=== PATIENT | male | born 1980 | race Caucasian/White ===

== ENCOUNTER 2020-01-11 21:39 | Inpatient (IN) ==
[2020-01-11] MEDS ORDERED: LORazepam 1 MG/2 ML VIAL IV STA ×2 (21:57→23:43)
[2020-01-11] MEDS ORDERED: THIAMINE HCL 200 MG in SODIUM CHLORIDE 0.9% 50 ML IV STA (21:59)
[2020-01-11] MEDS ORDERED: SODIUM CHLORIDE 0.9% 1000ML 1,000 ML IV SCH (22:00)
--- NOTE | 2020-01-11 22:03 | Emergency Department Note ---
Impression & Plan Alcohol withdrawal, Alcohol abuse, Pancytopenia, Hyperbilirubinemia, Thrombocytopenia ED Provider Note NAME: MIKI MERCADO AGE: 39 SEX: M : 1980 ARRIVES VIA: Walk-In INFORMANT: Patient, ED PROVIDER(S): Haim Dietz DO CHIEF COMPLAINT: Swelling HPI: The patient is a 39-year-old male who presented to the emergency department for an evaluation of lower extremity swelling. The patient also has multiple other complaints such as difficulty breathing chest pain shaking anxiety and "I just do not feel right". The patient is a history of chronic alcoholism. He also has a history of drug abuse in the past. He has a history of hepatitis C. He denies having any fevers. He states he stopped drinking approximately 24 daxa rs ago. He states that he has had some withdrawal symptoms in the past but today's episode appears worse. He denies having any vomiting. He also complains of lower extremity swelling. He states the swelling has improved somewhat over the last few days. He also complains of testicular swelling and testicular pain. He noticed a testicular mass over the scrotum. He denies having any abdominal pain. He has had no diarrhea. He has no cough or recent traveling. ROS: See above HPI for pertinent positives & negatives. A total of 10 systems reviewed and were otherwise negative. PAST MEDICAL HISTORY: See Below PAST SURGICAL HISTORY: See Below FAMILY HISTORY: See Below SOCIAL HISTORY: See Below HOME MEDICATIONS: See Below ALLERGIES: See Below VITALS: See Below PHYSICAL EXAMINATION: GENERAL: The patient is awake and alert. He is very anxious appearing. EYES: The conjunctivae are clear. The pupils are round and reactive. Scleral icterus was noted EARS, NOSE, MOUTH AND THROAT: The nose is without any evidence of any deformity. Mucous membranes are dry. NECK: The neck is nontender and supple. RESPIRATORY: Normal respiratory effort is noted there is no evidence of wheezing rhonchi or rales CARDIOVASCULAR: Tachycardic rate with regular rhythm was noted. There is no definite murmur. GASTROINTESTINAL: The abdomen is soft. Abdomen is nontender. MUSCULOSKELETAL/EXTREMITIES: There is no evidence of gross deformity full range of motion is noted in the hips and shoulders. SKIN: There is no obvious evidence of any rash. There is bilateral lower extremity swelling noted. Right greater than left. Venous stasis changes are noted. NEUROLOGIC: Patient is awake alert and oriented x3 strength is symmetric patellar reflexes are 3+ bilaterally MEDICAL DECISION MAKING: The patient is a 39-year-old male who presented to the emergency department for an evaluation of lower extremity swelling. The patient appears to have acute on chronic liver problems. He has a history of hepatitis. He has elevated liver function studies as well as pancytopenia at baseline but his symptoms appear to be worsened and his laboratory findings appear to be worsened. He was found to have an elevated alcohol level in the emergency department however at this time he is not clinically intoxicated. In fact I feel it is more the opposite as the patient is hyperreflexic and has elevated blood pressure. I feel this is more consistent with withdrawal. He was treated with Ativan IV fluids and thiamine in the emergency department. He was reevaluated multiple times. He was feeling much better on subsequent reevaluation. Given the patient's laboratory and radiographic studies I did discuss his case with the on-call [facility] hospitalist. They have agreed to evaluate the patient in the emergency department for further management and disposition. Triage Nursing notes reviewed. Prior medical records reviewed Vital Signs: reviewed and remarkable for tachycardia and hypertension. Differential diagnosis: Infection, dehydration, metabolic abnormality, hypo/hyperglycemia, electrolyte disturbance, anemia, hypoxia, cardiac sources, intracerebral event, toxicologic, neurologic, as well as other pathologies. ER treatment provided: See below Diagnostics interpreted by me: ECG: EKG was obtained in the emergency department. My interpretation is sinus tachycardia 105 bpm. There was no ectopy. Diffuse ST depressions were noted. This was compared to a tracing from June [id number]. No significant changes were noted. Cardiac Monitoring: An order was placed for continuous cardiac monitoring. The monitor shows a rate of 95 with sinus rhythm. Laboratory studies: As stated above and show below. Imaging studies: See below Consultation(s): 0015: I discussed this case with Dr. Reece. He is agreed to evaluate patient in the emergency department for further management and disposition. ED COURSE: Procedures: none PDMP:reviewed and no issues Critical Care: I have personally spent greater than 45 minutes of critical care time in the direct management of this patient. This includes bedside care, interpretation of diagnostic studies, and testing, discussion with consultants, patient, and family members, and other required patient management activities. This 45 minutes is in excess of all separately billable procedures. Past Med/Surg History Medical History Heart valve regurgitation Leg swelling Surgical History No pertinent past surgical history Social History Smoking Status: Current every day smoker Hx Substance Use: No Preferred Language: Portuguese Feels Safe at Home: Yes Allergies Allergies Allergy/AdvReac Type Severity Reaction Status Date / Time [id number] Allergy Unknown Uncoded 07/23/02 16:38 Home Meds Home Medications Medication Instructions Recorded Confirmed buprenorphine HCl 12 mg SUBLINGUAL DAILY 06/06/19 01/11/20 Results & Data (ED) Vital Signs Vital Signs - 24 hr 01/11/20 21:45 01/11/20 22:18 01/12/20 00:10 Temperature 37.2 C Temperature Source Oral Pulse Rate 119 H 76 Pulse Rate from SpO2 Sensor 76 Respiratory Rate 18 18 Respiratory Effort / Characteristics Non-Labored Respiratory Depth Normal Blood Pressure 146/79 H Blood Pressure [Right Arm] Blood Pressure Mean 101 Blood Pressure Mean [Right Arm] Pulse Oximetry 97 98 97 Oxygen Delivery Method Room Air Room Air Sepsis Recent Fever Within 48 Hours No Sepsis New/Unexplained Change in Mental Status No Sepsis Action Taken by Nursing No Action Required 01/12/20 00:18 Temperature Temperature Source Pulse Rate Pulse Rate from SpO2 Sensor Respiratory Rate Respiratory Effort / Characteristics Respiratory Depth Blood Pressure Blood Pressure [Right Arm] 125/73 Blood Pressure Mean Blood Pressure Mean [Right Arm] 90 Pulse Oximetry Oxygen Delivery Method Sepsis Recent Fever Within 48 Hours Sepsis New/Unexplained Change in Mental Status Sepsis Action Taken by Halfway Medications Current Medication List: was personally reviewed by me Laboratory Data Attestation: I reviewed the patient's lab results. Result diagrams: 01/11/20 22:07 01/11/20 22:07 Lab Results 01/11/20 01/11/20 01/11/20 Range/Units 22:07 22:07 22:07 WBC 4.29 L (4.8-10.8) K/uL RBC 4.02 L (4.7-6.1) M/uL Hgb 13.5 L (14.0-18.0) g/dL Hct 38.2 L (42-52) % MCV 95.0 (80-100) fL MCH 33.6 (25-34) pg MCHC 35.3 (32-36) g/dL RDW Std Deviation 56.0 H (36.4-46.3) fL RDW Coeff of Munir 15.9 H (11.5-14.5) % Plt Count 81 L (130-400) K/uL MPV 9.2 (7.4-10.4) fL Immature Gran % (Auto) 0.5 % Neut % (Auto) 62.7 % Lymph % (Auto) 26.6 % Avery % (Auto) 9.8 % Eos % (Auto) 0.2 % Baso % (Auto) 0.2 % Neut # (Auto) 2.69 (1.4-6.5) K/uL Lymph # (Auto) 1.14 L (1.2-3.4) K/uL Avery # (Auto) 0.42 (0.11-0.59) K/uL Eos # (Auto) 0.01 (0-0.5) K/uL Baso # (Auto) 0.01 (0-0.2) K/uL Immature Gran # (Auto) 0.02 (0.00-0.02) K/uL Hypersegmented Neuts 1+ Platelet Estimate Decreased L (Normal) Target Cells 1+ PT 15.6 H (9.0-12.0) Seconds INR 1.5 H (0.9-1.1) APTT 35.7 H (21.0-31.0) Seconds PTT Ratio 1.3 D-Dimer 670 H* (0-500) ug/L FEU Sodium 141 (136-145) mmol/L Potassium 3.6 (3.5-5.1) mmol/L Chloride 106 (98-107) mmol/L Carbon Dioxide 29 (21-32) mmol/L Anion Gap 6.0 (3-11) BUN 4 L (7-18) mg/dl Creatinine 0.81 (0.6-1.4) mg/dl Est Cr Clr Drug Dosing 149.3 ml/min Est GFR ( Amer) 129.8 Est GFR (Non-Af Amer) 112.0 BUN/Creatinine Ratio 4.9 L (10-20) Glucose 122 H (70-99) mg/dl Calcium 8.7 (8.5-10.1) mg/dl Magnesium 1.9 (1.8-2.4) mg/dl Total Bilirubin 6.6 H (0.2-1) mg/dl Direct Bilirubin 2.7 H (0-0.2) mg/dl AST 245 H (15-37) U/L ALT 92 H (12-78) U/L Alkaline Phosphatase 68 (45-117) U/L Total Creatine Kinase 1596 H (39-308) U/L Troponin I < 0.015 (0-0.045) ng/ml Total Protein 8.6 H (6.4-8.2) gm/dl Albumin 3.8 (3.4-5.0) gm/dl Globulin 4.8 H (2.5-4.0) gm/dl Albumin/Globulin Ratio 0.8 L (0.9-2) Lipase 144 (73-393) U/L Salicylates (2.8-20) mg/dl Acetaminophen (10-30) ug/ml Ethyl Alcohol mg/dL (0-3) mg/dl 01/11/20 01/11/20 Range/Units 22:07 22:07 WBC (4.8-10.8) K/uL RBC (4.7-6.1) M/uL Hgb (14.0-18.0) g/dL Hct (42-52) % MCV (80-100) fL MCH (25-34) pg MCHC (32-36) g/dL RDW Std Deviation (36.4-46.3) fL RDW Coeff of Munir (11.5-14.5) % Plt Count (130-400) K/uL MPV (7.4-10.4) fL Immature Gran % (Auto) % Neut % (Auto) % Lymph % (Auto) % Avery % (Auto) % Eos % (Auto) % Baso % (Auto) % Neut # (Auto) (1.4-6.5) K/uL Lymph # (Auto) (1.2-3.4) K/uL Avery # (Auto) (0.11-0.59) K/uL Eos # (Auto) (0-0.5) K/uL Baso # (Auto) (0-0.2) K/uL Immature Gran # (Auto) (0.00-0.02) K/uL Hypersegmented Neuts Platelet Estimate (Normal) Target Cells PT (9.0-12.0) Seconds INR (0.9-1.1) APTT (21.0-31.0) Seconds PTT Ratio D-Dimer (0-500) ug/L FEU Sodium (136-145) mmol/L Potassium (3.5-5.1) mmol/L Chloride (98-107) mmol/L Carbon Dioxide (21-32) mmol/L Anion Gap (3-11) BUN (7-18) mg/dl Creatinine (0.6-1.4) mg/dl Est Cr Clr Drug Dosing ml/min Est GFR ( Amer) Est GFR (Non-Af Amer) BUN/Creatinine Ratio (10-20) Glucose (70-99) mg/dl Calcium (8.5-10.1) mg/dl Magnesium (1.8-2.4) mg/dl Total Bilirubin (0.2-1) mg/dl Direct Bilirubin (0-0.2) mg/dl AST (15-37) U/L ALT (12-78) U/L Alkaline Phosphatase (45-117) U/L Total Creatine Kinase (39-308) U/L Troponin I (0-0.045) ng/ml Total Protein (6.4-8.2) gm/dl Albumin (3.4-5.0) gm/dl Globulin (2.5-4.0) gm/dl Albumin/Globulin Ratio (0.9-2) Lipase (73-393) U/L Salicylates (2.8-20) mg/dl Acetaminophen (10-30) ug/ml Ethyl Alcohol mg/dL 171.2 H (0-3) mg/dl Administered Medications Discontinued Medications Sodium Chloride (Nss 1000ml) 1,000 mls @ 999 mls/hr IV .[id number] [id number] Stop: 01/11/20 23:00 Last Infusion: 01/12/20 00:03 Dose: 0 mls/hr Documented by: [id number] Admin: 01/11/20 22:30 Dose: 999 mls/hr Documented by: [id number] Lorazepam (Ativan) 1 mg in 2 mls @ 2 mls/min IV NOW STA Stop: 01/11/20 21:58 Last Admin: 01/11/20 22:30 Dose: 2 mls/min Documented by: [id number] Thiamine HCl 200 mg/ Sodium (Chloride) 52 mls @ 208 mls/hr IV NOW STA Stop: 01/11/20 22:13 Last Infusion: 01/12/20 00:03 Dose: 0 mls/hr Documented by: [id number] Admin: 01/11/20 22:30 Dose: 208 mls/hr Documented by: [id number] Lorazepam (Ativan) 1 mg in 2 mls @ 2 mls/min IV NOW STA Stop: 01/11/20 23:44 Last Admin: 01/12/20 00:00 Dose: 2 mls/min Documented by: [id number] Imaging Data Attestation: I personally reviewed and interpreted this imaging study as follows: My Impression: 1 view chest x-ray was obtained in the emergency department. My interpretation is heart size is normal. Poor inspiratory effort was noted. There was no definite infiltrate. There was no free air. Radiologist's Impression: Preliminary Findings Only See Final Report For Complete Findings CT HEAD: No acute intracranial hemorrhage, hydrocephalus, edema, mass effect, or acute cortical infarct. Paranasal sinuses and mastoid air cells are clear. No fracture. Radiologist: Sharad Mcnamara MD Study ready at 22:43 and initial results transmitted at 23:01 Preliminary Findings Only See Final Report For Complete Findings US SCROTAL: No torsion or mass. Bilateral varicoceles present. US VENOUS BILATERAL LOWER EXTREMITIES: No evidence of deep venous thrombosis. Radiologist: Sharad Mcnamara MD Study ready at 23:51 and initial results transmitted at 00:05 Prescription Drug Monitoring [place] Drug Monitoring Program reviewed and findings noted below Prescription Drug Findings: The patient takes Buprenorphine chronically. Blood Pressure Blood Pressure Findings: Elevated blood pressure Blood Pressure Disposition: further management by hospitalist Discharge Plan Visit Data Chief Complaint: Illness Stated Complaint: LEG PAIN,SWOLLEN,RAPID HEARTBEAT ED Provider: Haim Dietz Discharge Problem: Alcohol withdrawal, Alcohol abuse, Pancytopenia, Hyperbilirubinemia, Thrombocytopenia Patient Disposition: Being Evaluated by Hospitalist Condition: Good Forms Stand Alone Forms: My [facility] PeerIndex Prescriptions Prescriptions: No Action buprenorphine HCl 8 mg Tablet, Sublingual 12 mg SUBLINGUAL DAILY RF: 0 Referrals Referrals: PCP,NO [Primary Care Provider] - Discharge Problem: Alcohol withdrawal Qualifiers: Complication of substance-induced condition: uncomplicated Qualified Code(s): F10.230 - Alcohol dependence with withdrawal, uncomplicated
[2020-01-11 22:36] LABS: INR 1.5 (0.9-1.1); Partial Thromboplastin Ratio 1.3; Partial Thromboplastin Time 35.7 Seconds (21.0-31.0); Prothrombin Time 15.6 Seconds (9.0-12.0)
[2020-01-11 22:40] LABS: D Dimer 670 ug/L FEU (0-500)
[2020-01-11 22:41] LABS: Alanine Aminotransferase 92 U/L (12-78); Albumin Level 3.8 gm/dl (3.4-5.0); Aspartate Aminotransferase 245 U/L (15-37); BUN Creatinine Ratio 4.9 (10-20); Blood Urea Nitrogen 4 mg/dl (7-18); Calcium 8.7 mg/dl (8.5-10.1); Carbon Dioxide 29 mmol/L (21-32); Chloride 106 mmol/L (98-107); Creatinine Clr Calc Pharmacy 149.3 ml/min; Est GFR (African American) 129.8; Glucose 122 mg/dl (70-99); Lipase 144 U/L (73-393); Magnesium 1.9 mg/dl (1.8-2.4); Potassium 3.6 mmol/L (3.5-5.1); Sodium 141 mmol/L (136-145)
[2020-01-11 22:56] LABS: Albumin Globulin Ratio 0.8 (0.9-2); Alkaline Phosphatase 68 U/L (45-117); Bilirubin,Total 6.6 mg/dl (0.2-1); Creatine Kinase 1596 U/L (39-308); Globulin 4.8 gm/dl (2.5-4.0); Total Protein 8.6 gm/dl (6.4-8.2); Troponin I < 0.015 ng/ml (0-0.045)
[2020-01-11 23:04] LABS: Hematocrit (blood only) 38.2 % (42-52); Hemoglobin 13.5 g/dL (14.0-18.0); Mean Corpuscular Hemoglobin 33.6 pg (25-34); Mean Corpuscular Hgb Conc 35.3 g/dL (32-36); RDW Coefficient of Variation 15.9 % (11.5-14.5); Red Blood Count 4.02 M/uL (4.7-6.1); White Blood Count 4.29 K/uL (4.8-10.8)
[2020-01-11 23:17] LABS: Basophils # (auto) 0.01 K/uL (0-0.2); Basophils % (auto) 0.2 %; Eosinophils # (auto) 0.01 K/uL (0-0.5); Eosinophils % (auto) 0.2 %; Immature Granulocytes # (auto) 0.02 K/uL (0.00-0.02); Immature Granulocytes % (auto) 0.5 %; Lymphocytes # (auto) 1.14 K/uL (1.2-3.4); Lymphocytes % (auto) 26.6 %; Mean Platelet Volume 9.2 fL (7.4-10.4); Monocytes # (auto) 0.42 K/uL (0.11-0.59); Monocytes % (auto) 9.8 %; Neutrophils # (auto) 2.69 K/uL (1.4-6.5); Neutrophils % (auto) 62.7 %; Platelet Count 81 K/uL (130-400); Platelet Estimate Decreased (Normal); Target Cells 1+
[2020-01-11 23:55] LABS: Bilirubin Direct 2.7 mg/dl (0-0.2)
--- NOTE | 2020-01-12 01:08 | History & Physical Report ---
Date of Service January 12, 2020 Assessment & Plan (1) Alcohol abuse: 39-year-old male with past medical history alcohol abuse, pancytopenia presents with concerns of lower extremity swelling and testicular pain admitted for alcohol withdrawal management. Alcohol withdrawal/abuse -Admit to Med Tele Per patient drinks about 1/5 of vodka per day usually. Attempted to quit over December 11, now drinks about 1-2 shots per day of vodka. EtOH 171.[address] on AWSS protocol. Patient given IV lorazepam 1 mg x 2 in ED -EKG: Sinus tachycardia with prolonged QTc 491. Repeat daily IV thiamine 100 mg twice daily and IV folate 1 mg daily. Can transition to PO moving forward. Multivitamin daily when able We will make patient n.p.o. IVF with D5 with 1/2 NSS@100 mls/hr -B12, Folate, Mg, Phos, AFP in the AM MELD score18 points. 6% estimated 3-month mortality. Given high score consider referral to doctor osteopathic. Will consult GI while inpatient so that the process of making arrangements for follow-up both locally and possibly a tertiary care center can be started Hepatitis panel ordered. Unclear status Appreciate case management assistance for outpatient management Continue with ongoing EtOH cessation counseling. Patient notes that he is interested in quitting ?Hepatic cirrhosis/portal hypertension/esophageal varices Patient notes hematemesis over December 11, none currently. Possibly due to esophageal varices rupturing. IV Protonix ordered GI consult as above. Consideration for further evaluation with EGD We will obtain CT abdomen pelvis at this time to further evaluate liver pathology Pancytopenia Likely secondary to alcohol abuse WBC 4.29, hemoglobin 13.5, platelet 81 on admission Daily CBC. We will additionally get a peripheral smear CT abdomen pelvis as above. This can assess possible splenomegaly secondary to sequestration of platelets Elevated liver enzymes/INR Secondary to alcohol abuse. AST ALT ratio indicative of alcoholic patient We will give IV vitamin K 10 mg and see how INR trends to assess liver response Trend CMP, PT/INR daily Elevated T bili T bili 6.6, direct bili 2.7 on admission Nontender abdominal exam, afebrile admission CT abdomen pelvis as above for further evaluation Lower extremity/scrotal swelling Scrotal ultrasound ([facility]): No torsion or mass. Bilateral varicoceles present Venous Doppler LE ([facility]): No evidence of deep venous thrombosis. Continue to monitor. No acute intervention at present FEN/GI: D5 with 1/2 NSS@100. N.p.o. DVT prophylaxis: Heparin SQ Full code Dispo: Med telemetry. Appreciate CM assistance moving forward for discharge planning History of Present Illness Chief Complaint: Leg swelling, testicular pain, alcohol Primary Care Provider: NO PCP 39-year-old male with past medical history alcohol abuse, pancytopenia presents with concerns of lower extremity swelling and testicular pain. HPI somewhat limited given limited patient participation secondary to drowsiness. Leg swelling has been there since May. Patient is noted that over the past few days has gotten worse with dull intermittent pain associated. Patient initially notes complaint of testicular lump that he noticed a few days ago as well. Associated concentrated urine and two recent new sexual partners. Patient was denies any urinary symptoms of dysuria, frequency, urgency, urethral discharge. Just knows what he thinks may be a lump on his testicle. As far as the alcohol, patient notes last drink about 24 hours ago. Overall states that he "just does not feel right". Patient drinks about 1/5 of vodka per day usually. Attempted to quit over December 11, now drinks about 1-2 shots per day of vodka. Patient states that reason he quit over December 11 is because he noticed that he was throwing up "some clots." However, no hematemesis since that time. Patient otherwise denies any fevers, nausea, vomiting, diarrhea, chills, cough, chest pain, shortness of breath, palpitations, abdominal pain, known sick contacts or recent travel anywhere. Patient with no other acute concerns or complaints. Pertinent labs: WBC 4.29, hemoglobin 13.5, platelet 81, d-dimer 670,, glucose 1 22, T bili 6.6, direct bili 2.7, AST 245, ALT 92, CK 1596, EtOH 171.2, Lipase WNL 144 EKG: Sinus tachycardia. ST depressions noted throughout. Prolonged QTc 491. When compared to ECG June 06, 2019 no significant changes were found Chest x-ray: Per interpretation no infiltrates noted, normal heart size. Scrotal ultrasound ([facility]): No torsion or mass. Bilateral varicoceles present. Venous Doppler LE ([facility]): No evidence of deep venous thrombosis. Head CT ([facility]): No acute intracranial hemorrhage, hydrocephalus, edema, mass effect, or acute cortical infarct. Paranasal sinuses and mastoid air cells are clear. No fracture. ER course: IV lorazepam 1 mg x 2, IV thiamine to 1 mg, NSS 1 L Allergies Allergy/AdvReac Type Severity Reaction Status Date / Time naloxone AdvReac Unknown Verified 01/12/20 09:13 Home Medications Home Medications Medication Instructions Recorded Confirmed Type buprenorphine HCl 12 mg SUBLINGUAL DAILY 06/06/19 01/11/20 History Past Med/Surg History Medical History Heart valve regurgitation Leg swelling Surgical History No pertinent past surgical history Social History Smoking Status: Former smoker Second Hand Exposure: Yes; Do You Dip or Chew Tobacco: No; Tobacco Cessation Education Requested by Patient: No Hx Alcohol Use: Yes Alcohol type: hard liquor Hx Substance Use: No Preferred Language: French Communication Ability: Effective Eligibility Specialist Required: No Beliefs That Will Affect Care: None Current Living Situation: Family and Significant Other Other Information That Helps Us Care for You: No Feels Safe at Home: Yes Safety Concerns: Feels Safe At This Time Review of Systems Review of Systems: All systems reviewed & are unremarkable except as noted in HPI & below Physical Exam Constitutional: + intoxicated appearing Eyes: + scleral abnormality (Mild icterus) ENMT: Mouth: + oral mucosal abnormality (Dry MM) Respiratory: normal respiratory effort, lungs clear to auscultation Cardiovascular: RRR, no murmur, no edema Gastrointestinal (Abdomen): normal bowel sounds, soft, nontender, no hepatosplenomegaly Skin: no rashes, warm and dry Chronic venous stasis changes lower extremities bilaterally Psychiatric: A+Ox3, euthymic affect Results & Data Results & Data ([facility]) Vital Signs (Past 12 Hours) Vital Signs Temp Pulse Resp BP BP Pulse Ox 01/12/20 00:18 125/73 01/12/20 00:10 76 18 97 01/11/20 22:18 98 01/11/20 21:45 37.2 C 119 H 18 146/79 H 97 Laboratory Results Laboratory Results - last 24 hr 01/11/20 01/11/20 01/11/20 22:07 22:07 22:07 WBC 4.29 L RBC 4.02 L Hgb 13.5 L Hct 38.2 L MCV 95.0 MCH 33.6 MCHC 35.3 RDW Std Deviation 56.0 H RDW Coeff of Munir 15.9 H Plt Count 81 L MPV 9.2 Immature Gran % (Auto) 0.5 Neut % (Auto) 62.7 Lymph % (Auto) 26.6 Heard % (Auto) 9.8 Eos % (Auto) 0.2 Baso % (Auto) 0.2 Neut # (Auto) 2.69 Lymph # (Auto) 1.14 L Heard # (Auto) 0.42 Eos # (Auto) 0.01 Baso # (Auto) 0.01 Immature Gran # (Auto) 0.02 Hypersegmented Neuts 1+ Platelet Estimate Decreased L Target Cells 1+ PT 15.6 H INR 1.5 H APTT 35.7 H PTT Ratio 1.3 D-Dimer 670 H* Sodium 141 Potassium 3.6 Chloride 106 Carbon Dioxide 29 Anion Gap 6.0 BUN 4 L Creatinine 0.81 Est Cr Clr Drug Dosing 149.3 Est GFR ( Amer) 129.8 Est GFR (Non-Af Amer) 112.0 BUN/Creatinine Ratio 4.9 L Glucose 122 H Calcium 8.7 Magnesium 1.9 Total Bilirubin 6.6 H Direct Bilirubin 2.7 H AST 245 H ALT 92 H Alkaline Phosphatase 68 Total Creatine Kinase 1596 H Troponin I < 0.015 Total Protein 8.6 H Albumin 3.8 Globulin 4.8 H Albumin/Globulin Ratio 0.8 L Lipase 144 Salicylates Acetaminophen Ethyl Alcohol mg/dL Miscellaneous Test 01/11/20 01/11/20 01/11/20 22:07 22:07 22:07 WBC RBC Hgb Hct MCV MCH MCHC RDW Std Deviation RDW Coeff of Munir Plt Count MPV Immature Gran % (Auto) Neut % (Auto) Lymph % (Auto) Heard % (Auto) Eos % (Auto) Baso % (Auto) Neut # (Auto) Lymph # (Auto) Heard # (Auto) Eos # (Auto) Baso # (Auto) Immature Gran # (Auto) Hypersegmented Neuts Platelet Estimate Target Cells PT INR APTT PTT Ratio D-Dimer Sodium Potassium Chloride Carbon Dioxide Anion Gap BUN Creatinine Est Cr Clr Drug Dosing Est GFR ( Amer) Est GFR (Non-Af Amer) BUN/Creatinine Ratio Glucose Calcium Magnesium Total Bilirubin Direct Bilirubin AST ALT Alkaline Phosphatase Total Creatine Kinase Troponin I Total Protein Albumin Globulin Albumin/Globulin Ratio Lipase Salicylates Acetaminophen Ethyl Alcohol mg/dL 171.2 H Miscellaneous Test Pending Code Status & VTE Plan Code Status Full Supervising Physician Co-Signing Physician Notes Attending addendum: I have physically seen this patient, have supervised the medical residents activities, and agree with the H&P unless as otherwise noted. Assessment and Plan: Alcoholic liver disease/alcohol withdrawal/upper GI bleed- Meld score of 18. Pancytopenia Associated rhabdomyolysis Coagulopathy with INR 1.5 Admit to medical telemetry bed Monitor for alcohol withdrawal with AWSS protocol Trial of vitamin K 10 mg IV Discussed with patient at length the gravity of his situation presented for the first time at age 39 with a meld score of 18. Test for hepatitis A, B and C. Order CT of abdomen and pelvis to assess for varices We will consult gastroenterology, but patient will need referral to hepatology. Upper GI bleed- Concern regarding possibility of varices Reports no further bleeding episodes since approximately December 11. Will place on Protonix IV, and hold off on octreotide drip for now, unless has any overt bleeding. Remainder of orders and notations as noted Resident Activity Tracking Resident Involvement: Resident Care Provided Care Provided: Adult [facility] Medicine
[2020-01-12] MEDS ORDERED: LORazepam 2 MG/4 ML VIAL IV PRN (03:02)
[2020-01-12] MEDS ORDERED: ATIVAN IV ALCOHOL WITHDRAWL IV PRN (03:02)
[2020-01-12] MEDS ORDERED: ONDANSETRON INJ 2 MG/ML 2 ML VIAL IV PRN (03:02)
[2020-01-12] MEDS ORDERED: D5W AND 1/2NSS 1,000 ML IV SCH (03:02)
[2020-01-12] MEDS ORDERED: LORazepam 1 MG/2 ML VIAL IV PRN (03:02)
[2020-01-12] MEDS ORDERED: LORazepam 3 MG/6 ML VIAL IV PRN (03:02)
[2020-01-12] MEDS ORDERED: ALUMINUM/MAGNESIUM SUSP 30 ML UDC PO PRN (03:02)
[2020-01-12] MEDS ORDERED: PHYTONADIONE 10 MG in SODIUM CHLORIDE 0.9% 50 ML IV ONE (03:15)
--- NOTE | 2020-01-12 06:17 | Ultrasound Report ---
US venous doppler LE BI HISTORY: Pain. Edema. pain and swelling COMPARISON STUDY: None. FINDINGS: There is normal compressibility, flow, and augmentation within the bilateral lower extremit y deep venous systems. IMPRESSION: No DVT within the right or left lower extremity. ACT 112: Negative or not required by law. The above report was generated using voice recognition software. It may contain grammatical, syntax or spelling errors. Electronically signed by: Kareem Michel M.D. 01/12/2020 6:16 AM
--- NOTE | 2020-01-12 06:19 | Ultrasound Report ---
US scrotum/testicle HISTORY: Pain mass COMPARISON: None. FINDINGS: Right testis: There are no intratesticular masses. Normal color flow. No hydrocele. The epididymis is unremarkable. Left testis: There are no intratesticular masses. Normal color flow. No hydrocele. The epididymis is unremarkable. IMPRESSION: Normal testicular ultrasound. Small bilateral varicoceles. ACT 112: Negative or not required by law. The above report was generated using voice recognition software. It may contain grammatical, syntax or spelling errors. Electronically signed by: Kareem Michel M.D. 01/12/2020 6:18 AM
[2020-01-12 06:26] LABS: Hematocrit (blood only) 34.6 % (42-52); Hemoglobin 12.1 g/dL (14.0-18.0); Mean Corpuscular Hemoglobin 33.2 pg (25-34); Mean Corpuscular Volume 94.8 fL (80-100); RDW Coefficient of Variation 15.9 % (11.5-14.5); RDW Standard Deviation 55.1 fL (36.4-46.3); Red Blood Count 3.65 M/uL (4.7-6.1); White Blood Count 3.71 K/uL (4.8-10.8)
[2020-01-12 06:38] LABS: INR 1.6 (0.9-1.1); Prothrombin Time 16.4 Seconds (9.0-12.0)
--- NOTE | 2020-01-12 06:38 | CT Scan Report ---
CT head/brain wo con CLINICAL HISTORY: This COMPARISON STUDY: No previous studies for comparison. TECHNIQUE: Axial CT of the brain is performed from the vertex to the skull base. IV contrast was not administered for this examination. A dose lowering technique was utilized adhering to the principles of ALARA. CT DOSE: 614.27 mGy.cm FINDINGS: No intra or extra-axial mass lesions are visualized. There is no CT evidence of acute cortical infarc tion. There is no evidence of midline shift. There is no acute hemorrhage. No calvarial fractures ar e visualized. There is no evidence of pathologic ventricular dilatation. There is no evidence of acute sinusitis IMPRESSION: Normal noncontrast head CT. ACT 112: Negative or not required by law. Electronically signed by: Nirmal Mejia M.D. 01/12/2020 6:37 AM
--- NOTE | 2020-01-12 06:46 | XRay Report ---
XR chest 1V portable CLINICAL HISTORY: weak dyspnea COMPARISON STUDY: 06/06/2019 FINDINGS: The bones soft tissues and hemidiaphragms are normal. The cardiomediastinal silhouette is n ormal. The lungs are clear. The pulmonary vasculature is normal. IMPRESSION: Negative chest. ACT 112: Negative or not required by law. The above report was generated using voice recognition software. It may contain grammatical, syntax or spelling errors. Electronically signed by: Kareem Michel M.D. 01/12/2020 6:45 AM
[2020-01-12 06:54] LABS: Mean Platelet Volume 9.5 fL (7.4-10.4); Platelet Count 66 K/uL (130-400)
[2020-01-12 07:05] LABS: Basophils # (auto) 0.01 K/uL (0-0.2); Basophils % (auto) 0.3 %; Eosinophils # (auto) 0.02 K/uL (0-0.5); Eosinophils % (auto) 0.5 %; Lymphocytes # (auto) 1.32 K/uL (1.2-3.4); Lymphocytes % (auto) 35.6 %; Monocytes # (auto) 0.36 K/uL (0.11-0.59); Monocytes % (auto) 9.7 %; Neutrophils % (auto) 53.9 %
[2020-01-12 07:12] LABS: Alanine Aminotransferase 72 U/L (12-78); Albumin Globulin Ratio 0.8 (0.9-2); Albumin Level 3.1 gm/dl (3.4-5.0); Alkaline Phosphatase 59 U/L (45-117); Aspartate Aminotransferase 193 U/L (15-37); BUN Creatinine Ratio 6.4 (10-20); Bilirubin,Total 5.5 mg/dl (0.2-1); Blood Urea Nitrogen 4 mg/dl (7-18); Calcium 8.3 mg/dl (8.5-10.1); Carbon Dioxide 28 mmol/L (21-32); Chloride 107 mmol/L (98-107); Creatinine Clr Calc Pharmacy 218.7 ml/min; Est GFR (African American) > 150.0; Est GFR (Non-African American) 131.3; Glucose 89 mg/dl (70-99); Magnesium 1.7 mg/dl (1.8-2.4); Phosphorus 3.6 mg/dl (2.5-4.9); Potassium 3.5 mmol/L (3.5-5.1); Sodium 141 mmol/L (136-145); Total Protein 7.1 gm/dl (6.4-8.2)
[2020-01-12 08:03] LABS: Hepatitis B Surface Antigen Neg (Neg)
[2020-01-12] MEDS ORDERED: OPTIRAY 320 125ml IV ONE (08:26)
[2020-01-12] MEDS ORDERED: PATIENT'S ALLERGY INFO NEEDS ENTERED SCH (08:30)
--- NOTE | 2020-01-12 08:40 | CT Scan Report ---
CT abd pelvis IV con only CLINICAL HISTORY: Cirrhosis. COMPARISON STUDY: None. TECHNIQUE: The patient was scanned in a dynamic helical fashion during intravenous administration of 94 cc of Optiray 320 A dose lowering technique was utilized adhering to the principles of ALARA. CT DOSE: 645.10 mGy.cm FINDINGS: Lower chest: The heart is normal in size and configuration, without pericardial effusion. The lung ba ses and pleural spaces are clear. Liver: There is a 4 mm right hepatic lobe hypodensity, likely representing a tiny cyst or biliary ham artoma. The portal and hepatic veins appear patent. Gallbladder: Mildly distended. No calculi visualized. Spleen: The spleen is enlarged measuring 15.7 cm Pancreas: Unremarkable. Adrenal glands: Unremarkable. Kidneys: There is symmetric renal cortical enhancement. The kidneys are normal in size without hydron ephrosis. Bowel: There are no transition zones to indicate bowel obstruction. There is no evidence of acute div erticulitis. The appendix appears normal. Peritoneum: There is trace free fluid. There is no free air. There is mildly prominent mesenteric vas cularity. This may reflect collateral flow from portal hypertension given the history of cirrhosis. Vasculature: The abdominal aorta is normal in course and caliber. Adenopathy: Mildly prominent lymph nodes in the region of the gastrohepatic ligament and mesentery ar e likely reactive Pelvic viscera: The bladder, and pelvic viscera are unremarkable. Skeletal structures: No destructive osseous lesions are seen. IMPRESSION: 1. Splenomegaly (15.7 cm) 2. Trace abdominal fluid and prominent mesenteric vascularity, possibly related to portal hypertensio n given the history of cirrhosis 3. Mildly prominent lymph nodes in the region of the gastrohepatic ligament and mesentery, likely irineo ctive 4. No evidence of bowel obstruction. No evidence of free air 5. No evidence of acute appendicitis. No evidence of acute diverticulitis ACT 112: Negative or not required by law. Electronically signed by: Nirmal Mejia M.D. 01/12/2020 8:38 AM
[2020-01-12 08:48] LABS: Folate (Folic Acid) 6.36 ng/ml (>5.38)
[2020-01-12] MEDS ORDERED: HEPARIN SOD 5,000 UNIT/0.5 ML VIAL SQ SCH (09:00)
[2020-01-12] MEDS ORDERED: buprenorphine HCL 8 MG SUBL SL SCH (09:00)
[2020-01-12] MEDS ORDERED: THIAMINE HCL 200 MG in SODIUM CHLORIDE 0.9% 50 ML IV SCH (09:00)
[2020-01-12] MEDS ORDERED: FOLIC ACID 1 MG in SYRINGE 9.8 ML IV SCH (09:00)
[2020-01-12] MEDS: PANTOprazole 40 MG in SYRINGE 0 ML IV SCH ×2 (09:07→21:02)
[2020-01-12] MEDS: buprenorphine HCL 2 MG SUBL SL SCH ×2 (09:18→21:02)
[2020-01-12] MEDS: FOLIC ACID 1 MG TAB PO SCH (09:18)
[2020-01-12] MEDS: THIAMINE HCL 100 MG TAB PO SCH (09:18)
--- NOTE | 2020-01-12 09:31 | Gastrointestinal Consultation ---
Date of Consultation January 12, 2020 Assessment & Plan (1) Abnormal CT of the abdomen: Concern for cirrhosis with findings of portal hypertension & splenomegaly in the setting of abnormal labs. Patient reports he has never been formally diagnosed with cirrhosis but has been told he has some type of hepatitis. If he truly has cirrhosis as it seems he does, his MELD is 18. -US liver for further characterization of liver texture -No steroids indicated -Would address alcohol withdrawal and plan for outpatient EGD with variceal surveillance; If patient develops concern for upper GI bleeding would then do an inpatient EGD -Follow MELD labs -Patient will likely need hepatology care given extent of these findings; Additionally, if his testing confirms a diagnosis of Hep C he will need GI/hepatology care through a different group as we do not treat Hep C at [facility]. (2) Alcohol withdrawal: -Treatment per primary team (3) Alcohol abuse: -Treatment per primary team Supervising Physician Co-Signing Physician Notes I personally evaluated the patient and agree with the findings as documented by Tracey Hernandez, PAC Exam: abd: soft, nt, nd likely multifactorial with Hep C and ETOH abuse causing his cirrhosis. will eventually need an EGD for variceal screening, will also need abdominal US to further evaluate and for HCC screening. History of Present Illness Reason for Consultation: Cirrhosis Attending Physician: Vinay Perez MD History of Present Illness 39-year-old male with past medical history alcohol abuse, pancytopenia who presented to [facility] with concerns of lower extremity swelling and testicular pain. GI has been consulted for reports of Cirrhosis. The patient tells me that he has not been diagnosed with cirrhosis in the past, but rather some type of "hepatitis." He is denying IVDA. He does have tattoos. A Hep C study is preliminarily positive. He reports heavy alcohol use, but notes he is trying to cut back over the past month. He reports an episode of hematemesis after the 11 of December but notes this has not happened since. He underwent a CT scan on admission that questioned the possibility of portal hypertension, however no comment was made about the liver texture. His labs indicated pancytopenia, an INF of 1.6, T Bili of 5.5, AST of 193, ALT of 72. He denies family history of Liver issues. His MELD calculates to 18 (7.7% 3 month mortality). Discriminate function 25 with no indication for steroids. He appears to have a tremor on exam, concerning for alcohol withdrawal. He claims he is interested in alcohol c essation. He denies GI symptoms at present. He is generally a poor historian. Allergies Allergy/AdvReac Type Severity Reaction Status Date / Time naloxone AdvReac Unknown Verified 01/12/20 09:13 Home Medications Home Medications Medication Instructions Recorded Confirmed Type buprenorphine HCl 12 mg SUBLINGUAL DAILY 06/06/19 01/11/20 History Patient History Medical History Heart valve regurgitation Leg swelling Surgical History No pertinent past surgical history Social History Smoking Status: Former smoker Second Hand Exposure: Yes; Do You Dip or Chew Tobacco: No; Tobacco Cessation Education Requested by Patient: No Hx Alcohol Use: Yes Alcohol type: hard liquor Hx Substance Use: No Preferred Language: Amharic Communication Ability: Effective Senior Data Scientist Required: No Beliefs That Will Affect Care: None Current Living Situation: Family and Significant Other Other Information That Helps Us Care for You: No Feels Safe at Home: Yes Safety Concerns: Feels Safe At This Time Review of Systems 2 Constitutional: no fever and no sweats Eyes: no problem reported Respiratory: no cough and no dyspnea Cardiovascular: no chest pain Gastrointestinal: no abdominal pain, no heartburn, no nausea, no coffee ground emesis, no hematemesis, no cramping, no change in stools and no melena Musculoskeletal: + swelling Integumentary: no problem reported Neurologic: + tremor(s); no dizziness Psychiatric: + substance abuse Hematologic / Lymphatic: no unexplained weight loss Physical Exam Constitutional: WD/WN, vitals as above Eyes: PERRL, conjunctivae normal, anicteric sclerae Neck: normal visual inspection Respiratory: normal respiratory effort, lungs clear to auscultation Cardiovascular: RRR, no murmur, no edema Gastrointestinal (Abdomen): normal bowel sounds, soft, nontender, no hepatosplenomegaly Musculoskeletal: Head/Neck/Chest: normocephalic Skin: no rashes, warm and dry Psychiatric: A+Ox3, euthymic affect Results & Data ([facility]) Vital Signs (Past 12 Hours) Vital Signs Temp Pulse Pulse Resp BP BP Pulse Ox 01/12/20 07:34 64 01/12/20 07:07 36.9 C 67 16 122/64 97 01/12/20 06:00 36.8 C 65 14 129/74 97 01/12/20 04:15 37.1 C 69 16 126/72 95 01/12/20 04:00 36.9 C 69 16 135/78 95 01/12/20 03:45 37.3 C 77 16 142/74 H 98 01/12/20 03:02 36.8 C 84 16 156/86 H 98 01/12/20 02:58 36.8 C 78 84 18 156/86 H 98 01/12/20 02:30 76 18 140/71 96 01/12/20 00:18 125/73 01/12/20 00:10 76 18 97 01/11/20 22:18 98 01/11/20 21:45 37.2 C 119 H 18 146/79 H 97 Pulse Ox 01/12/20 07:34 01/12/20 07:07 01/12/20 06:00 01/12/20 04:15 01/12/20 04:00 01/12/20 03:45 01/12/20 03:02 98 01/12/20 02:58 98 01/12/20 02:30 01/12/20 00:18 01/12/20 00:10 01/11/20 22:18 01/11/20 21:45 PG Care Time/CCT Total # of Minutes Spent Total Time Spent with Patient: Total time spent is greater than 50% in coordination of care (as documented) at patient's floor/unit and/or counseling patient: Coding Level of Care Code 69148 Inpt Consult Level [address] of the abdomen R93.5 Alcohol withdrawal F10.230 Complication of substance-induced condition: uncomplicated Alcohol abuse F10.10 (1) Alcohol withdrawal Complication of substance-induced condition: uncomplicated Qualified Code(s): F10.230 - Alcohol dependence with withdrawal, uncomplicated
--- NOTE | 2020-01-12 11:34 | Electrocardiogram Report ---
Test Reason : Blood Pressure : / mmHG Vent. Rate : 105 BPM Atrial Rate : 105 BPM P-R Int : 124 ms QRS Dur : 080 ms QT Int : 372 ms P-R-T Axes : 052 -15 024 degrees QTc Int : 491 ms Sinus tachycardia Possible Left atrial enlargement Borderline ECG When compared with ECG of 06-JUN-2019 17:50, No significant change was found Confirmed by Segun Baumann ([id number]) on 01/12/2020 11:34:07 AM Referred By: REFERRED SELF Confirmed By:Kalyan Baumann
--- NOTE | 2020-01-12 12:23 | Hospitalist Progress Note ---
Date of Service January 12, 2020 Assessment & Plan (1) Alcohol abuse: Has drank as much as 1/5 of vodka per day. - On RITA protocol - PPI PO BID - GI consulted - Appreciate recs. Will need outpatient EGD. (2) Hyperbilirubinemia: Likely due to hepatitis vs. cirrhosis. Tbili now 5.5. - Monitor (3) Thrombocytopenia: Likely from bone marrow suppression from alcohol vs splenomegaly. Plts was 81 on admission. - Down to 66 today. (4) DVT prophylaxis: SCDs - Low DVT risk per admission calculator, plus concern for bleeding. Admission and Anticipated Discharge Date Admission Date: January 12, 2020 Subjective Doing well today. No hematemesis at this point. Reports no fevers/chills, chest pain, shortness of breath, abdominal pain, nausea, or vomiting. Physical Exam Constitutional: WD/WN, vitals as above Eyes: EOM intact bilaterally; no conjunctival abnormality ENMT: external ear and nose normal, oropharynx normal Neck: trachea midline, no thyromegaly normal visual inspection Respiratory: normal respiratory effort, lungs clear to auscultation no respiratory distress Cardiovascular: RRR, no murmur, no edema Gastrointestinal (Abdomen): Inspection/Auscultation: abdomen normal to inspection; abdomen not distended Musculoskeletal: no cyanosis or clubbing, extremities motor strength 5/5 Skin: no rashes, warm and dry Neurologic: moves all extremities and awake Psychiatric: Orientation: alert, oriented to person and cooperative Results & Data Results & Data ([facility]) Vital Signs (Past 12 Hours) Vital Signs Temp Pulse Pulse Resp BP Pulse Ox Pulse Ox 01/12/20 11:56 37.1 C 103 H 16 147/83 H 99 01/12/20 07:34 64 01/12/20 07:07 36.9 C 67 16 122/64 97 01/12/20 06:00 36.8 C 65 14 129/74 97 01/12/20 04:15 37.1 C 69 16 126/72 95 01/12/20 04:00 36.9 C 69 16 135/78 95 01/12/20 03:45 37.3 C 77 16 142/74 H 98 01/12/20 03:02 36.8 C 84 16 156/86 H 98 98 01/12/20 02:58 36.8 C 78 84 18 156/86 H 98 98 08/04/20 02:30 76 18 140/71 96 01/12/20 00:18 125/73 01/12/20 00:10 76 18 97 PG Care Time/CCT Total # of Minutes Spent Total Time Spent with Patient: Total time spent is greater than 50% in coordination of care (as documented) at patient's floor/unit and/or counseling patient: Coding Level of Care Code 78515 Subseq Hosp Care Lvl 2 Diagnoses Alcohol abuse F10.10 Hyperbilirubinemia E80.6 Thrombocytopenia D69.6 DVT prophylaxis Z29.9
--- NOTE | 2020-01-12 14:27 | Ultrasound Report ---
US liver CLINICAL HISTORY: Abnormal CT liver COMPARISON STUDY: 01/12/2020 FINDINGS: Mild heterogeneity of echogenicity of the liver. No well-defined space-occupying lesion bas ed on ultrasound criteria. Small amount of gallbladder debris. No shadowing gallstones. Trace pericholecystic fluid. Gallbladder wall slightly prominent at 4 mm. Common bile duct 5 mm. Poor visibility of the pancreas due to overlying bowel content. Right kidney is negative for hydronephrosis. IMPRESSION: 1. Heterogeneous liver with no well-defined ultrasonic evidence for a space-occupying lesion. 2. Trace amount of gallbladder sludge/debris with mild wall thickening and a trace amount of perichol ecystic fluid. 3. Normal caliber bile ducts. ACT 112: Negative or not required by law. The above report was generated using voice recognition software. It may contain grammatical, syntax or spelling errors. Electronically signed by: Kareem Michel M.D. 01/12/2020 2:25 PM
[2020-01-12 15:00] LABS: Appearance Urine Clear (Clear); Bacteria Urine Automated Negative (Negative); Bilirubin Urine 1+ (Negative); Blood Urine Negative (Negative); Cast Urine Automated 0 /lpf (0-5); Color Urine Dark Yellow; Epithelial Cell Urine Auto 0-5 /lpf (0-5); Glucose Urine UA Negative (Negative); Ketones Urine Negative (Negative); Leukocyte Esterase Urine Negative (Negative); Nitrite Urine Positive (Negative); Protein Urine Negative (Negative); RBC Urine Automated 0-4 /hpf (0-4); Specific Gravity Urine 1.036 (1.000-1.030); Urobilinogen Urine Positive (Negative); pH Urine 8.5 (4.5-7.5)
[2020-01-12 15:04] LABS: Ictotest Urine Positive (Negative)
[2020-01-12 15:30] LABS: Amphetamines+Metham, Urine Neg (Neg); Barbiturates, Urine Neg (Neg); Benzodiazepine, Urine Neg (Neg); Cocaine, Urine Neg (Neg); MDMA (Ecstacy), Urine Neg (Neg); Methadone, Urine Neg (Neg); Opiate, Urine Neg (Neg); Phencyclidine, Urine Neg (Neg)
--- NOTE | 2020-01-12 19:21 | Billing Data ---
Date of Service January 12, 2020 Coding Level of Care Code 41178 Initial Inpt Care Lvl 3
[2020-01-12] MEDS: PANTOprazole 40 MG TAB PO SCH (21:03)
[2020-01-13 06:11] LABS: Hematocrit (blood only) 34.5 % (42-52); Hemoglobin 12.1 g/dL (14.0-18.0); Mean Corpuscular Hemoglobin 33.1 pg (25-34); Mean Corpuscular Hgb Conc 35.1 g/dL (32-36); Mean Corpuscular Volume 94.3 fL (80-100); RDW Standard Deviation 51.8 fL (36.4-46.3); Red Blood Count 3.66 M/uL (4.7-6.1); White Blood Count 3.35 K/uL (4.8-10.8)
[2020-01-13 06:12] LABS: Mean Platelet Volume 9.5 fL (7.4-10.4); Platelet Count 70 K/uL (130-400)
[2020-01-13 06:19] LABS: INR 1.6 (0.9-1.1); Prothrombin Time 16.1 Seconds (9.0-12.0)
[2020-01-13 06:43] LABS: Albumin Level 2.9 gm/dl (3.4-5.0); BUN Creatinine Ratio 7.1 (10-20); Calcium 8.4 mg/dl (8.5-10.1); Creatinine Clr Calc Pharmacy 184.1 ml/min; Est GFR (Non-African American) 122.6; Magnesium 1.8 mg/dl (1.8-2.4); Potassium 3.7 mmol/L (3.5-5.1)
[2020-01-13 06:44] LABS: Albumin Globulin Ratio 0.7 (0.9-2); Bilirubin,Total 8.7 mg/dl (0.2-1); Globulin 4.3 gm/dl (2.5-4.0); Phosphorus 3.6 mg/dl (2.5-4.9); Total Protein 7.2 gm/dl (6.4-8.2)
[2020-01-13] MEDS: ACETAMINOPHEN 325 MG TAB PO PRN ×2 (06:44→11:52)
[2020-01-13] MEDS: buprenorphine HCL 2 MG SUBL SL SCH ×2 (09:09→21:05)
[2020-01-13] MEDS: PANTOprazole 40 MG in SYRINGE 0 ML IV SCH (09:10)
[2020-01-13] MEDS: FOLIC ACID 1 MG TAB PO SCH (09:10)
[2020-01-13] MEDS: THIAMINE HCL 100 MG TAB PO SCH (09:10)
[2020-01-13] MEDS: PANTOprazole 40 MG TAB PO SCH ×2 (09:10→21:05)
[2020-01-13 10:34] LABS: Hepatitis A Antibody IgM NON-REACTIVE (NON-REACTIVE); Hepatitis B Core Antibody IgM NON-REACTIVE (NON-REACTIVE)
--- NOTE | 2020-01-13 11:55 | Electrocardiogram Report ---
Test Reason : Blood Pressure : / mmHG Vent. Rate : 083 BPM Atrial Rate : 083 BPM P-R Int : 114 ms QRS Dur : 088 ms QT Int : 412 ms P-R-T Axes : 013 -24 015 degrees QTc Int : 484 ms Normal sinus rhythm Prolonged QT Abnormal ECG When compared with ECG of 11-JAN-2020 22:06, No significant change was found Confirmed by Segun Baumann ([id number]) on 01/13/2020 11:55:18 AM Referred By: REFERRED SELF Confirmed By:Kalyan Baumann
[2020-01-13] MEDS: POLYETHYLENE (MIRALAX) 17 GM PACK PO SCH (13:23)
--- NOTE | 2020-01-13 13:30 | Hospitalist Progress Note ---
Date of Service January 13, 2020 Assessment & Plan (1) Alcoholic hepatitis: Balta's DF is 27 with rising bilirubin. Still no indication for steroids, though may become necessary. - Seen by GI with no current needs. Will need eventual hepatology work-up. - Monitor CMP/INR (2) Alcohol abuse: Has drank as much as 1/5 of vodka per day. - PPI PO BID - Thiamine and folate supplementation - GI consulted - Appreciate recs. Will need outpatient EGD. - On RITA protocol -> Generally 1-5 over the last 24 hours. (3) Hepatitis C: Known hepatitis C infection. - HCV Ab positive; RNA pending - Outpatient follow up (4) Hyperbilirubinemia: Likely due to hepatitis vs. cirrhosis. Tbili now 8.7. - Plan as above (5) Thrombocytopenia: Likely from bone marrow suppression from alcohol vs splenomegaly. Plts was 81 on admission. - Down to 70 today; stable from yesterday. (6) Substance abuse in remission: Hx of opioid abuse. - Continue Suboxone; patient reports actually taking 1/2 tablet 2-3 times a day at home. (7) DVT prophylaxis: SCDs - Low DVT risk per admission calculator, plus concern for bleeding. Admission and Anticipated Discharge Date Admission Date: January 12, 2020 Subjective Less anxious and tremulous today. Otherwise still has loss of appetite. Reports no fevers/chills, chest pain, shortness of breath, abdominal pain, nausea, or vomiting. Physical Exam Constitutional: WD/WN, vitals as above Eyes: EOM intact bilaterally; no conjunctival abnormality ENMT: external ear and nose normal, oropharynx normal Neck: trachea midline, no thyromegaly normal visual inspection Respiratory: normal respiratory effort, lungs clear to auscultation no respiratory distress Cardiovascular: RRR, no murmur, no edema Gastrointestinal (Abdomen): Inspection/Auscultation: abdomen normal to inspection; abdomen not distended Musculoskeletal: no cyanosis or clubbing, extremities motor strength 5/5 Skin: no rashes, warm and dry Neurologic: moves all extremities and awake Psychiatric: Orientation: alert, oriented to person and cooperative Results & Data Results & Data ([place]) Vital Signs (Past 12 Hours) Vital Signs Temp Pulse Pulse Resp BP Pulse Ox Pulse Ox 01/13/20 11:14 37.0 C 95 H 20 150/86 H 97 01/13/20 07:13 37.0 C 88 18 149/91 H 95 01/13/20 03:38 36.8 C 80 18 150/77 H 98 01/13/20 03:02 98 PG Care Time/CCT Total # of Minutes Spent Total Time Spent with Patient: Total time spent is greater than 50% in coordination of care (as documented) at patient's floor/unit and/or counseling patient: Coding Level of Care Code 93896 Subseq Hosp Care Lvl 3 Diagnoses Alcoholic hepatitis K70.10 Alcohol abuse F10.10 Hepatitis C B19.20 Hyperbilirubinemia E80.6 Thrombocytopenia D69.6 Substance abuse in remission F19.11 DVT prophylaxis Z29.9
[2020-01-13] MEDS ORDERED: PANTOprazole 40 MG TAB PO SCH (21:00)
[2020-01-14 06:37] LABS: Hematocrit (blood only) 35.2 % (42-52); Hemoglobin 12.4 g/dL (14.0-18.0); Mean Corpuscular Hemoglobin 33.5 pg (25-34); Mean Corpuscular Hgb Conc 35.2 g/dL (32-36); Mean Corpuscular Volume 95.1 fL (80-100); Mean Platelet Volume 9.6 fL (7.4-10.4); Platelet Count 74 K/uL (130-400); RDW Coefficient of Variation 15.1 % (11.5-14.5); RDW Standard Deviation 52.7 fL (36.4-46.3); White Blood Count 3.51 K/uL (4.8-10.8)
[2020-01-14 06:45] LABS: INR 1.6 (0.9-1.1); Prothrombin Time 16.1 Seconds (9.0-12.0)
[2020-01-14 07:00] LABS: Platelet Estimate Decreased (Normal)
[2020-01-14 07:05] LABS: Albumin Level 3.2 gm/dl (3.4-5.0); BUN Creatinine Ratio 7.2 (10-20); Calcium 9.1 mg/dl (8.5-10.1); Creatinine Clr Calc Pharmacy 184.1 ml/min; Est GFR (Non-African American) 122.6; Magnesium 1.9 mg/dl (1.8-2.4); Potassium 3.6 mmol/L (3.5-5.1)
[2020-01-14 07:07] LABS: Albumin Globulin Ratio 0.7 (0.9-2); Bilirubin,Total 6.7 mg/dl (0.2-1); Globulin 4.4 gm/dl (2.5-4.0); Total Protein 7.6 gm/dl (6.4-8.2)
[2020-01-14] MEDS: FOLIC ACID 1 MG TAB PO SCH (09:53)
[2020-01-14] MEDS: PANTOprazole 40 MG TAB PO SCH (09:53)
[2020-01-14] MEDS: THIAMINE HCL 100 MG TAB PO SCH (09:53)
[2020-01-14] MEDS: buprenorphine HCL 2 MG SUBL SL SCH (09:54)
[2020-01-14] MEDS: POLYETHYLENE (MIRALAX) 17 GM PACK PO SCH (09:55)
--- NOTE | 2020-01-14 09:59 | Gastroenterology Progress Note ---
Date of Service January 14, 2020 Assessment & Plan (1) Abnormal CT of the abdomen: Concern for cirrhosis with findings of portal hypertension & splenomegaly in the setting of abnormal labs. MELD has been around 18. -No steroids indicated at present -No active bleeding & H/H stable; Plan for outpatient GI evaluation with EGD for variceal surveillance -Follow MELD labs -Patient will likely need hepatology care given extent of these findings; Additionally, if his testing confirms a diagnosis of Hep C he will need GI/hepatology care through a different group as we do not treat Hep C at [facility]. (2) Alcohol abuse: -Treatment per primary team Admission and Anticipated Discharge Date Admission Date: January 12, 2020 Supervising Physician Co-Signing Physician Notes I personally evaluated the patient and agree with the findings as documented by Tracey Hernandez, [place] Exam: abd: soft, nt, nd will need EGD as an outpatient for variceal screening. Subjective Patient is a 39 yo male with a history of alcohol abuse and likely hepatic cirrhosis. His Hep C was preliminarily positive and the RNA quant is pending. He denies bleeding, vomiting, abdominal pain, jaundice, confusion. He offers no new complaints at present. H/H is stable at 12.4/35.2. INR has been at 1.6 throughout the stay. AST elevated at 135, ALT normal. Review of Systems Constitutional: no fever and no chills Respiratory: no cough and no dyspnea Cardiovascular: no chest pain Gastrointestinal: no abdominal pain, no coffee ground emesis, no dysphagia, no change in bowel habits, no blood in stools and no melena Neurologic: no tremor(s) and no dizziness Psychiatric: + substance abuse Physical Exam Constitutional: WD/WN, vitals as above Respiratory: normal respiratory effort, lungs clear to auscultation Cardiovascular: RRR, no murmur, no edema Gastrointestinal (Abdomen): normal bowel sounds, soft, nontender, no hepatosplenomegaly Musculoskeletal: Head/Neck/Chest: normocephalic Skin: no rashes, warm and dry Psychiatric: A+Ox3, euthymic affect Results & Data Results & Data ([facility]) Vital Signs (Past 12 Hours) Vital Signs Temp Pulse Pulse Resp BP Pulse Ox 01/14/20 07:09 36.8 C 75 18 131/75 96 01/14/20 00:10 37 C 84 18 153/84 H 97 PG Care Time/CCT Total # of Minutes Spent Total Time Spent with Patient: Total time spent is greater than 50% in coordination of care (as documented) at patient's floor/unit and/or counseling patient: Coding Level of Care Code 07745 Subseq Hosp Care Lvl [address] of the abdomen R93.5 Alcohol abuse F10.10
[2020-01-14 16:34] LABS: Marijuana Quant, GCMS Urine 24 ng/mL (<5)
--- NOTE | 2020-01-14 17:33 | Electrocardiogram Report ---
Test Reason : Blood Pressure : / mmHG Vent. Rate : 073 BPM Atrial Rate : 073 BPM P-R Int : 128 ms QRS Dur : 082 ms QT Int : 424 ms P-R-T Axes : 013 -14 018 degrees QTc Int : 467 ms Normal sinus rhythm Nonspecific ST abnormality Abnormal ECG When compared with ECG of 13-JAN-2020 07:00, No significant change was found Confirmed by Segun Baumann ([id number]) on 01/14/2020 5:32:46 PM Referred By: REFERRED SELF Confirmed By:Kalyan Baumann
--- NOTE | 2020-01-14 18:50 | Discharge Summary ---
Date of Service January 14, 2020 Admission HPI Per Admitting Provider 39-year-old male with past medical history alcohol abuse, pancytopenia presents with concerns of lower extremity swelling and testicular pain. HPI somewhat limited given limited patient participation secondary to drowsiness. Leg swelling has been there since May. Patient is noted that over the past few days has gotten worse with dull intermittent pain associated. Patient initially notes complaint of testicular lump that he noticed a few days ago as well. Associated concentrated urine and two recent new sexual partners. Patient was denies any urinary symptoms of dysuria, frequency, urgency, urethral discharge. Just knows what he thinks may be a lump on his testicle. As far as the alcohol, patient notes last drink about 24 hours ago. Overall states that he "just does not feel right". Patient drinks about 1/5 of vodka per day usually. Attempted to quit over December 11, now drinks about 1-2 shots per day of vodka. Patient states that reason he quit over December 11 is because he noticed that he was t hrowing up "some clots." However, no hematemesis since that time. Patient otherwise denies any fevers, nausea, vomiting, diarrhea, chills, cough, chest pain, shortness of breath, palpitations, abdominal pain, known sick contacts or recent travel anywhere. Patient with no other acute concerns or complaints. Pertinent labs: WBC 4.29, hemoglobin 13.5, platelet 81, d-dimer 670,, glucose 122, T bili 6.6, direct bili 2.7, AST 245, ALT 92, CK 1596, EtOH 171.2, Lipase WNL 144 EKG: Sinus tachycardia. ST depressions noted throughout. Prolonged QTc 491. When compared to ECG June 06, 2019 no significant changes were found Chest x-ray: Per interpretation no infiltrates noted, normal heart size. Scrotal ultrasound ([facility]): No torsion or mass. Bilateral varicoceles present. Venous Doppler LE ([facility]): No evidence of deep venous thrombosis. Head CT ([facility]): No acute intracranial hemorrhage, hydrocephalus, edema, mass effect, or acute cortical infarct. Paranasal sinuses and mastoid air cells are clear. No fracture. ER course: IV lorazepam 1 mg x 2, IV thiamine to 1 mg, NSS 1 L Principal Diagnosis Alcohol withdrawal Alcoholic hepatitis Possible cirrhosis from HCV and alcohol abuse Discharge Exam Constitutional WD/WN, vitals as above Eyes EOM intact bilaterally; no conjunctival abnormality ENMT external ear and nose normal, oropharynx normal Neck trachea midline, no thyromegaly normal visual inspection Respiratory normal respiratory effort, lungs clear to auscultation no respiratory distress Cardiovascular RRR, no murmur, no edema Gastrointestinal (Abdomen) Inspection/Auscultation: abdomen normal to inspection; abdomen not distended Musculoskeletal no cyanosis or clubbing, extremities motor strength 5/5 Skin no rashes, warm and dry Neurologic moves all extremities and awake Psychiatric Orientation: alert, oriented to person and cooperative Discharge Data Allergies Allergy/AdvReac Type Severity Reaction Status Date / Time naloxone AdvReac Unknown Verified 01/12/20 09:13 Consultations 01/12/20 00:51 ED Decision to Admit Stat 01/12/20 03:02 Consult Case Management - Discharge Planning Routine Consult Gastroenterology Routine Ordered Studies 01/11/20 21:57 US scrotum/testicle Stat US venous doppler LE BI Stat 01/11/20 21:58 CT head/brain wo con Stat 01/12/20 08:30 CT abd pelvis IV con only Routine 01/12/20 14:00 US liver Routine Hospital Course (1) Alcoholic hepatitis: Maddrey's DF is 27 with rising bilirubin. Still no indication for steroids, though may become necessary. - Seen by GI with no current needs. Will need eventual hepatology work-up. - Monitor CMP/INR -> Improving by discharge. No need for steroids. (2) Alcohol abuse: Has drank as much as 1/5 of vodka per day. - PPI PO BID - Thiamine and folate supplementation - GI consulted - Appreciate recs. Will need outpatient EGD. - On RITA protocol -> Generally 1-5 over the last 24 hours. No Ativan needed. (3) Hepatitis C: Known hepatitis C infection. - HCV Ab positive; RNA pending - Outpatient follow up -> He will need a referral to an institution with hepatology and ability to treat HCV. (4) Hyperbilirubinemia: Likely due to hepatitis vs. cirrhosis. Tbili now 8.7. - Plan as above (5) Thrombocytopenia: Likely from bone marrow suppression from alcohol vs splenomegaly. Plts was 81 on admission. - Down to 70 today; stable from yesterday. Stable on discharge. (6) Substance abuse in remission: Hx of opioid abuse. - Continue Suboxone; patient reports actually taking 1/2 tablet 2-3 times a day at home. (7) DVT prophylaxis: SCDs - Low DVT risk per admission calculator, plus concern for bleeding. Total Time Total Time Spent Total Time Spent (In Minutes): 35 Discharge Plan Discharge Items Patient Disposition: Home - Self-Care Reason For Visit: ALCOHOL ABUSE Discharge Diagnosis: Alcohol use resulting in liver damage Condition on Discharge: Good Activity: Resume your previous activity Non-emergency contact: Primary Care Provider and Geothermal Field Technician Call non-emergency contact if: your symptoms worsen Follow-up/Referrals: Lamont Rodriguez MD [Physician] - (Please see Dr. Rodriguez or another GI/liver provider in their office in 2 weeks.) PCP,NO [Primary Care Provider] - Diet: Regular Addtl Attending Provider Instructions: You were admitted to the hospital for alcohol detox as well as follow up on your liver issues. Luckily your liver seems to be recovering. This means the liver is recovering from the active (acute) inflammation from the alcohol. However, there is still some concern that there may be a level of scarring of the liver from your hepatitis C and alcohol intake. You will need to follow up with the GI doctors in 2-3 weeks for the EGD (scope of your esophagus and stomach). You may also need referral to a liver-specific doctor (called a machine printer) for treatment of your hepatitis C. Please do not drink any more alcohol. The alcohol combines with your hepatitis C to damage your liver. It is super important to not drink ANY alcohol. Pending Studies at Discharge: Yes Studies:: Hepatitis C level Stand-Alone Forms: [facility], Work/School Release (Inpt), Smoking Cessation Medications and DC Order Prescriptions: Continued buprenorphine HCl 8 mg Tablet, Sublingual 12 mg SUBLINGUAL DAILY RF: 0 Discharge Orders: Discharge Order (Routine); Ordered 01/14/20 Ordered By: Vinay Perez Admission Data Admit Date/Time: 01/12/20 02:25 Attending Provider: Vinay Perez Admit Provider: David Allan Primary Care Provider: PCP,NO Other Providers: Vinay Perez ; Panda Pak ; Sim Monzon Other Interventions: Discharge Summary Assessment (RN) Last Done: 01/14/20 10:51 DC Date/Time DO NOT enter until pt leaves facility: 01/14/20 11:46 Coding Level of Care Code D/C Day Management >30 mins Diagnoses Alcoholic hepatitis K70.10 Alcohol abuse F10.10 Hepatitis C B19.20 Hyperbilirubinemia E80.6 Thrombocytopenia D69.6 Substance abuse in remission F19.11 DVT prophylaxis Z29.9
== END 2020-01-14 11:46 | disposition home or self-care (01) | DRG 432 ==
LOC: ED 21:39 → SUATTDRO 01-12 02:25 → 2N 01-12 02:25

== ENCOUNTER 2020-03-31 10:36 | Inpatient (IN) ==
[2020-03-31] MEDS ORDERED: SODIUM CHLORIDE 0.9% 1000ML 1,000 ML IV ONE (11:42)
[2020-03-31] MEDS ORDERED: FOLIC ACID 1 MG in SYRINGE 9.8 ML IV STA (11:46)
[2020-03-31] MEDS ORDERED: THIAMINE HCL 100 MG in SYRINGE 9 ML IV STA (11:46)
--- NOTE | 2020-03-31 11:46 | Emergency Department Note ---
Impression & Plan Alcohol withdrawal, Alcohol abuse, Hyperbilirubinemia, Hepatitis C, Elevated INR, Edema ED Provider Note NAME: MIKI MERCADO AGE: 39 SEX: M : 1980 ARRIVES VIA: Walk-In INFORMANT: Patient ED PROVIDER(S): Fernando Escobedo DO CHIEF COMPLAINT: swelling in legs HPI: Patient is a 39-year-old male who presents to the ER for swelling in his bilateral legs. He notes that this has been waxing and waning for the past month. He has not had this before as well. He has a history of hepatitis B, alcoholic hepatitis and substance abuse but has not used heroin in multiple years. He drinks about 1/5 of vodka every 1-1/2 days. He has been doing this for about 20 years off and on. He has quit once. He denies any headache, change in vision, chest pain, shortness of breath, nausea, vomiting or diarrhea. He is not short of breath with lying flat. He is uncertain of the swelling in his legs. He is not short of breath with exertion. No other exacerbating or remitting factors at this time. ROS: See above HPI for pertinent positives & negatives. A total of 10 systems reviewed and were otherwise negative. PAST MEDICAL HISTORY:See Below PAST SURGICAL HISTORY:See Below FAMILY HISTORY:See Below SOCIAL HISTORY:See Below HOME MEDICATIONS:See Below ALLERGIES:See Below VITALS:See Below PHYSICAL EXAMINATION: GENERAL: Sitting up in bed, alert, chronically ill-appearing, disheveled EYE EXAM: Scleral icterus OROPHARYNX: no exudate, no erythema, lips, buccal mucosa, and tongue normal and mucous membranes are moist NECK: supple, no nuchal rigidity, no adenopathy, non-tender LUNGS: Clear to auscultation. Normal chest wall mechanics HEART: no murmurs, S1 normal and S2 normal ABDOMEN: abdomen soft, non-tender, normo-active bowel sounds, no masses, no rebound or guarding. BACK: Back is symmetrical on inspection and there is no deformity, no midline tenderness, no CVA tenderness. SKIN: Diffuse jaundice UPPER EXTREMITIES: upper extremities are grossly normal. LOWER EXTREMITIES: Left calf slightly larger than right with bilateral pitting edema NEURO EXAM: Normal sensorium, cranial nerves II-XII grossly intact, normal speech, no gross weakness of arms, no gross weakness of legs. MEDICAL DECISION MAKING: Patient is a 39-year-old male who presents the ER for swelling in his legs including drinking. He is an alcoholic who drinks regularly about 1/5 of vodka every 1.5 days. Last drink was this morning. IV was established blood work was obtained. Labs show no significant leukocytosis and mild anemia 11.9 thousand. INR was elevated at 1.7 up from 1.5. BMP was fairly unremarkable with a normal sodium. T bili was up at 10.5 and direct bili at 6.8 and AST at 200 ALT increased from previous. Troponin was negative. Lipase was unremarkable. Alcohol was 240. Patient was observed for over 4 hours and started shaking in the upper extremities. Patient was given IV Ativan. This improved. Updated the patient bedside. Discussed with hospitalist for further evaluation. He will likely benefit from evaluation from GI as well as hospitalist. Triage Nursing notes reviewed. Prior medical records reviewed Vital Signs: reviewed and remarkable for no significant abnormalities Differential diagnosis: Infection, dehydration, metabolic abnormality, hypo/hyperglycemia, electrolyte disturbance, anemia, hypoxia, cardiac sources, intracerebral event, toxicologic, neurologic, as well as other pathologies. ER treatment provided: See below Diagnostics interpreted by me: ECG: Sinus rhythm rate 83 Normal axis No PVCs Normal QTC Cardiac Monitoring: An order was placed for continuous cardiac monitoring. The monitor shows a rate of 89 with sinus rhythm. Laboratory studies: As stated above and show below. Imaging studies: Venous Doppler of left lower extremity was negative Portable AP upright 1 view of the chest is no focal menstruated pneumothorax Consultation(s): Chest with Dr. Fermin Moreno for further evaluation ED COURSE: Procedures: none Critical Care: None Past Med/Surg History Medical History (Updated 03/31/20 @ 17:24 by Fernando Escobedo DO) Heart valve regurgitation Leg swelling Surgical History No pertinent past surgical history Social History Smoking Status: Current every day smoker Cigarettes Per Day: 1/2 pack or less; Second Hand Exposure: Yes; Hx Alcohol Use: Yes Alcohol type: hard liquor Hx Substance Use: No Preferred Language: Vincentian Communication Ability: Effective Industrial Order Clerk Required: No Beliefs That Will Affect Care: None Current Living Situation: Family and Significant Other Other Information That Helps Us Care for You: No Feels Safe at Home: Yes Safety Concerns: Feels Safe At This Time Assistive Devices: None Allergies Allergies Allergy/AdvReac Type Severity Reaction Status Date / Time naloxone AdvReac Unknown Verified 03/31/20 14:08 Home Meds Home Medications Medication Instructions Recorded Confirmed buprenorphine HCl 12 mg SUBLINGUAL DAILY 06/06/19 03/31/20 Results & Data (ED) Vital Signs Vital Signs - 24 hr 03/31/20 11:03 03/31/20 11:42 03/31/20 12:18 Temperature 36.9 C Temperature Source Oral Pulse Rate 102 H 96 H Pulse Rate from SpO2 Sensor 95 H Respiratory Rate 18 11 L Blood Pressure 150/91 H 146/81 H Blood Pressure Mean 110 107 Pulse Oximetry 98 97 98 Oxygen Delivery Method Room Air Room Air Sepsis Recent Fever Within 48 Hours No Sepsis New/Unexplained Change in Mental Status No Sepsis Action Taken by Nursing No Action Required 03/31/20 12:30 Temperature Temperature Source Pulse Rate 91 H Pulse Rate from SpO2 Sensor 91 H Respiratory Rate 13 Blood Pressure 138/72 Blood Pressure Mean 92 Pulse Oximetry 95 Oxygen Delivery Method Sepsis Recent Fever Within 48 Hours Sepsis New/Unexplained Change in Mental Status Sepsis Action Taken by Nursing Laboratory Data Result diagrams: 03/31/20 12:00 03/31/20 12:00 Lab Results 03/31/20 03/31/20 03/31/20 Range/Units 12:00 12:00 12:00 WBC 5.58 (4.8-10.8) K/uL RBC 3.47 L (4.7-6.1) M/uL Hgb 11.8 L (14.0-18.0) g/dL Hct 34.5 L (42-52) % MCV 99.4 (80-100) fL MCH 34.0 (25-34) pg MCHC 34.2 (32-36) g/dL RDW Std Deviation 54.9 H (36.4-46.3) fL RDW Coeff of Munir 15.1 H (11.5-14.5) % Plt Count 90 L (130-400) K/uL MPV 9.9 (7.4-10.4) fL Immature Gran % (Auto) 0.4 % Neut % (Auto) 66.0 % Lymph % (Auto) 20.1 % Anson % (Auto) 12.7 % Eos % (Auto) 0.4 % Baso % (Auto) 0.4 % Neut # (Auto) 3.69 (1.4-6.5) K/uL Lymph # (Auto) 1.12 L (1.2-3.4) K/uL Anson # (Auto) 0.71 H (0.11-0.59) K/uL Eos # (Auto) 0.02 (0-0.5) K/uL Baso # (Auto) 0.02 (0-0.2) K/uL Immature Gran # (Auto) 0.02 (0.00-0.02) K/uL Platelet Estimate Decreased L (Normal) Target Cells 1+ Montero-Cyr Bodies 1+ PT 17.4 H (9.0-12.0) Seconds INR 1.7 H (0.9-1.1) APTT 38.5 H (21.0-31.0) Seconds PTT Ratio 1.4 Sodium 138 (136-145) mmol/L Potassium 3.8 (3.5-5.1) mmol/L Chloride 104 (98-107) mmol/L Carbon Dioxide 29 (21-32) mmol/L Anion Gap 6.0 (3-11) BUN 3 L (7-18) mg/dl Creatinine 0.73 (0.6-1.4) mg/dl Est Cr Clr Drug Dosing 149.1 ml/min Est GFR ( Amer) 135.4 Est GFR (Non-Af Amer) 116.8 BUN/Creatinine Ratio 3.4 L (10-20) Glucose 107 H (70-99) mg/dl Calcium 8.6 (8.5-10.1) mg/dl Magnesium (1.8-2.4) mg/dl Total Bilirubin 10.5 H (0.2-1) mg/dl Direct Bilirubin 6.8 H (0-0.2) mg/dl AST 201 H (15-37) U/L ALT 57 (12-78) U/L Alkaline Phosphatase 124 H (45-117) U/L Troponin I < 0.015 (0-0.045) ng/ml NT-Pro-B Natriuret Pep 57 (0-450) pg/ml Total Protein 8.2 (6.4-8.2) gm/dl Albumin 3.3 L (3.4-5.0) gm/dl Globulin 4.9 H (2.5-4.0) gm/dl Albumin/Globulin Ratio 0.7 L (0.9-2) Lipase 132 (73-393) U/L Ethyl Alcohol mg/dL (0-3) mg/dl 03/31/20 03/31/20 Range/Units 12:00 12:14 WBC (4.8-10.8) K/uL RBC (4.7-6.1) M/uL Hgb (14.0-18.0) g/dL Hct (42-52) % MCV (80-100) fL MCH (25-34) pg MCHC (32-36) g/dL RDW Std Deviation (36.4-46.3) fL RDW Coeff of Munir (11.5-14.5) % Plt Count (130-400) K/uL MPV (7.4-10.4) fL Immature Gran % (Auto) % Neut % (Auto) % Lymph % (Auto) % Anson % (Auto) % Eos % (Auto) % Baso % (Auto) % Neut # (Auto) (1.4-6.5) K/uL Lymph # (Auto) (1.2-3.4) K/uL Anson # (Auto) (0.11-0.59) K/uL Eos # (Auto) (0-0.5) K/uL Baso # (Auto) (0-0.2) K/uL Immature Gran # (Auto) (0.00-0.02) K/uL Platelet Estimate (Normal) Target Cells Montero-Cyr Bodies PT (9.0-12.0) Seconds INR (0.9-1.1) APTT (21.0-31.0) Seconds PTT Ratio Sodium (136-145) mmol/L Potassium (3.5-5.1) mmol/L Chloride (98-107) mmol/L Carbon Dioxide (21-32) mmol/L Anion Gap (3-11) BUN (7-18) mg/dl Creatinine (0.6-1.4) mg/dl Est Cr Clr Drug Dosing ml/min Est GFR ( Amer) Est GFR (Non-Af Amer) BUN/Creatinine Ratio (10-20) Glucose (70-99) mg/dl Calcium (8.5-10.1) mg/dl Magnesium 2.2 (1.8-2.4) mg/dl Total Bilirubin (0.2-1) mg/dl Direct Bilirubin (0-0.2) mg/dl AST (15-37) U/L ALT (12-78) U/L Alkaline Phosphatase (45-117) U/L Troponin I (0-0.045) ng/ml NT-Pro-B Natriuret Pep (0-450) pg/ml Total Protein (6.4-8.2) gm/dl Albumin (3.4-5.0) gm/dl Globulin (2.5-4.0) gm/dl Albumin/Globulin Ratio (0.9-2) Lipase (73-393) U/L Ethyl Alcohol mg/dL 238.7 H (0-3) mg/dl Administered Medications Multivitamins (Multivitamin Tab) 1 tab PO QAM KETAN Stop: 04/30/20 11:59 Last Admin: 03/31/20 13:01 Dose: 1 tab Documented by: [id number] Discontinued Medications Sodium Chloride (Nss 1000ml) 1,000 mls @ 999 mls/hr IV .Q1H1M ONE Stop: 03/31/20 12:42 Last Infusion: 03/31/20 13:56 Dose: 0 mls/hr Documented by: [id number] Admin: 03/31/20 13:01 Dose: 999 mls/hr Documented by: [id number] Thiamine HCl 100 mg/ Syringe 10 mls @ 2 mls/min IV NOW STA Stop: 03/31/20 11:50 Last Admin: 03/31/20 13:02 Dose: 2 mls/min Documented by: [id number] Folic Acid 1 mg/ Syringe 10 mls @ 5 mls/min IV NOW STA Stop: 03/31/20 11:47 Last Admin: 03/31/20 13:02 Dose: 5 mls/min Documented by: [id number] Lorazepam (Ativan) 1 mg in 2 mls @ 2 mls/min IV NOW STA Stop: 03/31/20 14:14 Last Admin: 03/31/20 14:39 Dose: 2 mls/min Documented by: [id number] Multivitamins 10 ml/ Thiamine HCl 100 mg/ Folic Acid 1 mg/Sodium Chloride 1,011.2 mls @ 1,011.2 mls/hr IV .Q1H ONE Stop: 03/31/20 16:10 Last Infusion: 03/31/20 17:16 Dose: 0 mls/hr Documented by: [id number] Admin: 03/31/20 15:43 Dose: 1,011.2 mls/hr Documented by: [id number] Discharge Plan Visit Data Chief Complaint: Swelling/Edema to Extremity Stated Complaint: SWOLLEN LEGS ED Provider: Fernando Escobedo Discharge Problem: Alcohol withdrawal, Alcohol abuse, Hyperbilirubinemia, Hepatitis C, Elevated INR, Edema Forms Stand Alone Forms: [facility] Prescriptions Prescriptions: No Action buprenorphine HCl 8 mg Tablet, Sublingual 12 mg SUBLINGUAL DAILY RF: 0 Discharge Problem: Alcohol withdrawal Qualifiers: Complication of substance-induced condition: with unspecified complication Q ualified Code(s): F10.239 - Alcohol dependence with withdrawal, unspecified Hepatitis C Qualifiers: Viral hepatitis chronicity: unspecified Hepatic coma status: without hepatic coma Qualified Code(s): B19.20 - Unspecified viral hepatitis C without hepatic coma Edema Qualifiers: Edema type: unspecified Qualified Code(s): R60.9 - Edema, unspecified
[2020-03-31] MEDS ORDERED: MULTIVITAMIN TAB PO SCH (12:00)
--- NOTE | 2020-03-31 12:08 | XRay Report ---
SINGLE VIEW CHEST CLINICAL HISTORY: Atypical chest pain. FINDINGS: An AP, portable, upright chest radiograph is compared to study dated 01/11/2020. The cardiome diastinal silhouette is unremarkable. The lungs and pleural spaces are clear. No pneumothorax is seen . The bony thorax is grossly intact. IMPRESSION: No active disease in the chest. ACT 112: Negative or not required by law. Electronically signed by: Damien Rosario M.D. 03/31/2020 12:07 PM
[2020-03-31 12:33] LABS: Hematocrit (blood only) 34.5 % (42-52); Hemoglobin 11.8 g/dL (14.0-18.0); Mean Corpuscular Hgb Conc 34.2 g/dL (32-36); Mean Corpuscular Volume 99.4 fL (80-100); RDW Coefficient of Variation 15.1 % (11.5-14.5); RDW Standard Deviation 54.9 fL (36.4-46.3); Red Blood Count 3.47 M/uL (4.7-6.1); White Blood Count 5.58 K/uL (4.8-10.8)
[2020-03-31 12:48] LABS: Albumin Level 3.3 gm/dl (3.4-5.0); Aspartate Aminotransferase 201 U/L (15-37); BUN Creatinine Ratio 3.4 (10-20); Bilirubin Direct 6.8 mg/dl (0-0.2); Blood Urea Nitrogen 3 mg/dl (7-18); Calcium 8.6 mg/dl (8.5-10.1); Carbon Dioxide 29 mmol/L (21-32); Chloride 104 mmol/L (98-107); Creatinine Clr Calc Pharmacy 149.1 ml/min; Est GFR (African American) 135.4; Est GFR (Non-African American) 116.8; Glucose 107 mg/dl (70-99); Lipase 132 U/L (73-393); Potassium 3.8 mmol/L (3.5-5.1); Sodium 138 mmol/L (136-145)
[2020-03-31 12:50] LABS: INR 1.7 (0.9-1.1); Partial Thromboplastin Ratio 1.4; Partial Thromboplastin Time 38.5 Seconds (21.0-31.0); Prothrombin Time 17.4 Seconds (9.0-12.0)
[2020-03-31 12:54] LABS: Alanine Aminotransferase 57 U/L (12-78); Albumin Globulin Ratio 0.7 (0.9-2); Alkaline Phosphatase 124 U/L (45-117); Bilirubin,Total 10.5 mg/dl (0.2-1); Globulin 4.9 gm/dl (2.5-4.0); NT Pro B Type Natriuretic Pept 57 pg/ml (0-450); Total Protein 8.2 gm/dl (6.4-8.2); Troponin I < 0.015 ng/ml (0-0.045)
--- NOTE | 2020-03-31 13:06 | Electrocardiogram Report ---
Test Reason : Blood Pressure : / mmHG Vent. Rate : 083 BPM Atrial Rate : 083 BPM P-R Int : 096 ms QRS Dur : 086 ms QT Int : 416 ms P-R-T Axes : 007 -14 024 degrees QTc Int : 488 ms Sinus rhythm with short OK Otherwise normal ECG When compared with ECG of 14-JAN-2020 06:40, Nonspecific T wave abnormality Anterior leads no longer present Confirmed by Arthur Singh ([id number]) on 03/31/2020 1:06:01 PM Referred By: REFERRED SELF Confirmed By:Arthur Singh
[2020-03-31 13:09] LABS: Basophils # (auto) 0.02 K/uL (0-0.2); Basophils % (auto) 0.4 %; Eosinophils # (auto) 0.02 K/uL (0-0.5); Eosinophils % (auto) 0.4 %; Howell-Jolly Bodies 1+; Immature Granulocytes # (auto) 0.02 K/uL (0.00-0.02); Immature Granulocytes % (auto) 0.4 %; Lymphocytes # (auto) 1.12 K/uL (1.2-3.4); Lymphocytes % (auto) 20.1 %; Mean Platelet Volume 9.9 fL (7.4-10.4); Monocytes # (auto) 0.71 K/uL (0.11-0.59); Monocytes % (auto) 12.7 %; Neutrophils # (auto) 3.69 K/uL (1.4-6.5); Platelet Count 90 K/uL (130-400); Platelet Estimate Decreased (Normal); Target Cells 1+
--- NOTE | 2020-03-31 13:42 | Ultrasound Report ---
US venous doppler LE LT HISTORY: 39 years-old Male lle swelling acute pain and swelling of the left lower extremity COMPARISON: Duplex venous Doppler study 01/11/2020 TECHNIQUE: Multiple real-time sonographic images of the left lower extremity deep venous structures w ere obtained assessing grayscale appearance, color and spectral flow FINDINGS: Normal flow, compressibility, phasicity and augmentation of the left lower extremity deep venous stru ctures. Subcutaneous edema. IMPRESSION: No sonographic evidence of deep venous thrombosis. ACT 112: Negative or not required by law. The above report was generated using voice recognition software. It may contain grammatical, syntax o r spelling errors. Electronically signed by: Jake Mccarty M.D. 03/31/2020 1:41 PM
[2020-03-31] MEDS ORDERED: LORazepam 1 MG/2 ML VIAL IV STA (14:13)
--- NOTE | 2020-03-31 15:05 | History & Physical Report ---
Date of Service March 31, 2020 Assessment & Plan (1) Alcoholic hepatitis: Patient here with acute alcohol withdrawal. He does get shakes in the morning his last drink was around 7 or 8:00 in the morning typically drinks vodka about 1/5 a day. Patient said after his last hospitalization he was dry for period of time he then twisted his ankle and needed to self medicate his ankle pain began drinking again. Because of his ankle pain is been off work. Patient presents with a significant elevation of his T bili of 10 AST to 200 INR 1.7. Alcohol level is positive on presentation. Discriminant function was significantly elevated. Discussion with Dr. Monzon with GI medicine recommends beginning methylprednisolone which was started at 30 mg a day. Patient have a banana bag. Patient be continued on thiamine folic acid. Patient be on the gabapentin withdrawal protocol plus Ativan as needed. Patient will be seen by GI in the morning. Drug screen will be taken. Liver ultrasound is also ordered Patient started on Protonix given his steroids that is going to be initiated on (2) DVT prophylaxis: Patient's INR is significantly elevated chemoprophylaxis will be contraindicated the patient will be SCDs. Because of significant bilateral lower extremity swelling the patient had a Doppler study on presentation was unremarkable for DVT (3) Hepatitis C: There is no history hepatitis C he is on Antabuse there is a tox screen pending on presentation (4) Lower extremity edema: given one dose of lasix iv will follow and consider spironolactone History of Present Illness Primary Care Provider: Zoltan Okeefe She has a history of substance abuse and alcoholism. He presents with increasing bilateral lower extremity swelling and concerns for alcohol withdrawal. He was discharged from our facility January 13 after an episode of alcohol withdrawal. Patient reportedly was clean for a few weeks but then twisted his ankle and due to the pain of his ankle began drinking alcohol again. He drinks up to a fifth or more of vodka a day typically only going 3 to 4 hours before having shakes and having to drink more vodka. Reportedly he was urged to come into the hospital due to the massive lower extremity swelling by his significant other. In the ER he did have a ultrasound negative for DVT. His labs are significantly abnormal with a T bili of 10 and INR of 1.7 and AST of 200 subsequently his discriminant function is significantly elevated conversation was had to start methylprednisolone for alcoholic hepatitis Allergies Allergy/AdvReac Type Severity Reaction Status Date / Time naloxone AdvReac Unknown Verified 03/31/20 14:08 Home Medications Home Medications Medication Instructions Recorded Confirmed Type buprenorphine HCl 12 mg SUBLINGUAL DAILY 06/06/19 03/31/20 History Past Med/Surg History Medical History (Updated 03/31/20 @ 20:23 by Guero Moreno MD) Heart valve regurgitation Leg swelling Surgical History No pertinent past surgical history Social History Smoking Status: Current every day smoker Cigarettes Per Day: 1/2 pack or less; Second Hand Exposure: Yes; Hx Alcohol Use: Yes Alcohol type: hard liquor Hx Substance Use: No Preferred Language: Portuguese Communication Ability: Effective Tester Regulator Required: No Beliefs That Will Affect Care: None Current Living Situation: Family and Significant Other Other Information That Helps Us Care for You: No Feels Safe at Home: Yes Safety Concerns: Feels Safe At This Time Assistive Devices: None Review of Systems 2 Review of Systems: Moderate distress and fatigue no headache, blurry or double vision no speech or swallowing issues no chest pain, pressure or palpitations Dyspnea on exertion, cough or wheezes Abdominal pain right upper quadrant mild nausea no dysuria, hematuria or frequency no focal joint pain significant bilateral lower extremity swelling no back pain, CVA tenderness or radicular pain Patient has some discoloration of his lower extremities consistent no focal signs of weakness or numbness or altered sensation Points of anxiety and shakiness Physical Exam Physical Exam: The patient appeared well nourished and normally developed. Vital signs as documented. Head exam is normocephalic atraumatic no scleral icterus Neck is with JVD, thyromegaly, or carotid bruits. Lungs are diminished at the bases Cardiac exam, tachycardic.. No murmurs, rubs or gallops. Abdominal exam reveals hypoactivel bowel sounds, soft slightly distended and dull Extremities are massively edematous but both pedal pulses are present Neurologic exam is alert and oriented, no focal loss of strength or sensation, does exhibit some tremor but no axterixis Skin is with changes of chronic venous stasis changes Results & Data Results & Data ([place]) Vital Signs (Past 12 Hours) Vital Signs Temp Pulse Resp BP Pulse Ox 03/31/20 12:30 91 H 13 138/72 95 03/31/20 12:18 96 H 11 L 146/81 H 98 03/31/20 11:42 97 03/31/20 11:03 98.4 F 102 H 18 150/91 H 98 Venous Dopplers negative for lower extremity DVT PG Care Time/CCT Total # of Minutes Spent Total Time Spent with Patient: Total time spent is greater than 50% in coordina tion of care (as documented) at patient's floor/unit and/or counseling patient: Coding Level of Care Code 75072 Initial Inpt Care Lvl 3 Diagnoses Alcoholic hepatitis K70.10 DVT prophylaxis Z29.9 Hepatitis C B19.20 Lower extremity edema R60.0
[2020-03-31] MEDS ORDERED: MULTI-VITAMIN INFUSION 10 ML, THIAMINE HCL 100 MG, FOLIC ACID 1 MG in SODIUM CHLORIDE 0... IV ONE (15:11)
[2020-03-31] MEDS ORDERED: LORazepam 1 MG/2 ML VIAL IV PRN (18:51)
[2020-03-31] MEDS ORDERED: POLYETHYLENE (MIRALAX) 17 GM PACK PO PRN (18:51)
[2020-03-31] MEDS ORDERED: ONDANSETRON INJ 2 MG/ML 2 ML VIAL IV PRN (18:51)
[2020-03-31] MEDS ORDERED: FUROSEMIDE 40 MG/4 ML VIAL IV STA (18:51)
[2020-03-31] MEDS ORDERED: GABAPENTIN 1200MG ALCOHOL WITHDRAWAL LOAD PO STA (18:51)
[2020-03-31] MEDS ORDERED: GABAPENTIN 600 MG TAB PO ONE (19:30)
[2020-03-31 19:59] LABS: Albumin Globulin Ratio 0.7 (0.9-2); Albumin Level 2.8 gm/dl (3.4-5.0); BUN Creatinine Ratio 4.1 (10-20); Bilirubin,Total 9.2 mg/dl (0.2-1); Calcium 8.2 mg/dl (8.5-10.1); Creatinine Clr Calc Pharmacy 129.6 ml/min; Est GFR (African American) 127.8; Est GFR (Non-African American) 110.3; Globulin 4.1 gm/dl (2.5-4.0); Potassium 3.6 mmol/L (3.5-5.1); Total Protein 6.9 gm/dl (6.4-8.2)
[2020-03-31] MEDS ORDERED: ATIVAN IV ALCOHOL WITHDRAWL IV PRN (23:51)
[2020-03-31] MEDS ORDERED: LORazepam 3 MG/6 ML VIAL IV PRN (23:51)
[2020-04-01] MEDS: GABAPENTIN 600 MG TAB PO SCH ×3 (05:06→21:16)
--- NOTE | 2020-04-01 05:09 | Ultrasound Report ---
ULTRASOUND RIGHT UPPER QUADRANT ABDOMEN CLINICAL HISTORY: Cirrhosis. COMPARISON STUDY: Abdominal CT and ultrasound dated 01/12/2020. TECHNIQUE: Real-time, grayscale, and color flow sonography of the right upper quadrant of the abdomen was performed. Images are reviewed in the transverse and longitudinal planes. FINDINGS: Liver: The liver is enlarged, heterogeneous, and cirrhotic in morphology. There is nodularity of the hepatic surface contour. There is no intrahepatic biliary ductal dilatation. The main portal vein is patent. Gallbladder: The gallbladder is distended and contains sludge. No shadowing gallstones are identified . The gallbladder wall is top normal in thickness mildly edematous measuring up to 3 mm. Trace perich olecystic fluid is noted. A sonographic Freire's sign is reportedly absent. The common bile duct julio césar ures up to 0.4 cm in diameter. Pancreas: Not well visualized due to overlying bowel gas. Right kidney: Survey images of the right kidney demonstrate normal size and echotexture. There is no hydronephrosis. Ascites: None. IMPRESSION: 1. The liver is enlarged, heterogeneous, and cirrhotic in morphology. 2. The gallbladder is distended and contains biliary sludge. The gallbladder wall is top normal in th ickness and mildly edematous. This is nonspecific, and likely related to cirrhosis/hepatocellular dis ease. This has not significantly changed as compared to the 01/12/2020 examination. There is no convinc ing sonographic evidence of acute cholecystitis. 3. The pancreas was not well visualized due to overlying bowel gas. 4. There is trace pericholecystic/perihepatic ascites. ACT 112: Negative or not required by law. Electronically signed by: Damien Rosario M.D. 04/01/2020 5:08 AM
[2020-04-01 05:10] LABS: Amphetamines+Metham, Urine Neg (Neg); Barbiturates, Urine Neg (Neg); Benzodiazepine, Urine Neg (Neg); Cocaine, Urine Neg (Neg); MDMA (Ecstacy), Urine Neg (Neg); Methadone, Urine Neg (Neg); Opiate, Urine Neg (Neg); Phencyclidine, Urine Neg (Neg)
--- NOTE | 2020-04-01 05:10 | Ultrasound Report ---
ULTRASOUND ASCITES CHECK CLINICAL HISTORY: Cirrhosis. COMPARISON STUDY: Abdominal CT dated 01/12/2020. FINDINGS: Real-time grayscale sonography of all 4 quadrants of the abdomen is performed to assess for abdominal ascites. Trace abdominal ascites is seen in all 4 quadrants. The liver is enlarged and cir rhotic in morphology. The spleen is also enlarged. IMPRESSION: There is trace abdominopelvic ascites. This is insufficient for paracentesis. Electronically signed by: Damien Rosario M.D. 04/01/2020 5:09 AM
[2020-04-01] MEDS: LORazepam 2 MG/4 ML VIAL IV PRN ×3 (07:32→17:29)
[2020-04-01] MEDS: PANTOprazole 40 MG TAB PO SCH (07:33)
[2020-04-01] MEDS: THIAMINE HCL 200 MG in SODIUM CHLORIDE 0.9% 50 ML IV SCH (07:39)
[2020-04-01] MEDS: FOLIC ACID 1 MG in SYRINGE 9.8 ML IV SCH (07:39)
[2020-04-01 08:56] LABS: Hematocrit (blood only) 34.5 % (42-52); Mean Corpuscular Hemoglobin 34.4 pg (25-34); Mean Corpuscular Hgb Conc 34.8 g/dL (32-36); Mean Corpuscular Volume 98.9 fL (80-100); RDW Coefficient of Variation 15.1 % (11.5-14.5); RDW Standard Deviation 54.2 fL (36.4-46.3); Red Blood Count 3.49 M/uL (4.7-6.1)
[2020-04-01 09:04] LABS: Prothrombin Time 20.6 Seconds (9.0-12.0)
[2020-04-01 09:14] LABS: Mean Platelet Volume 10.2 fL (7.4-10.4); Platelet Count 86 K/uL (130-400)
[2020-04-01] MEDS ORDERED: PHYTONADIONE 5 MG in SODIUM CHLORIDE 0.9% 50 ML IV ONE (09:20)
[2020-04-01 09:27] LABS: Albumin Globulin Ratio 0.6 (0.9-2); BUN Creatinine Ratio 8.1 (10-20); Bilirubin,Total 10.9 mg/dl (0.2-1); Calcium 8.9 mg/dl (8.5-10.1); Creatinine Clr Calc Pharmacy 157.8 ml/min; Est GFR (African American) 132.5; Est GFR (Non-African American) 114.3; Globulin 4.7 gm/dl (2.5-4.0); Total Protein 7.7 gm/dl (6.4-8.2)
--- NOTE | 2020-04-01 12:30 | Gastrointestinal Consultation ---
Date of Consultation April 01, 2020 Assessment & Plan (1) Alcoholic hepatitis: MELD score is suggestive of >50% 3 month mortality risk. Discriminant function was 35 on admission. -Continue Methylpredisolone -Monitor PT/INR, metabolic & liver panel closely -Prognosis is guarded. If worsening labs/clinical picture, would advise transfer to a tertiary center with liver transplant/hepatology services. -Would advise he agree to alcohol rehab as I would recommend 100% alcohol abstinence (2) Cirrhosis: Trace ascites. BLLE edema improving. -Needs outpatient HCC screening, endoscopic surveillance, & chronic management -Regardless of alcoholic hepatitis outcome, patient will require outpatient hepatology evaluation upon discharge -Monitor edema, if worsening/returning consider standing dosage of diuretics -Protonix 40 mg BID -Needs to abstain from substances harmful to the liver such as alcohol -2 gm sodium restricted diet (3) Alcohol withdrawal: -Treatment per primary team Supervising Physician Co-Signing Physician Notes Agree with TEMITOPE Heard Abd: Soft, NT, ND, +BS No asterixis INR and Bili Total worsened overnight Patient still actively drinking Continue current therapy and supportive care History of Present Illness Reason for Consultation: Alcoholic hepatitis Attending Physician: Justin Niño History of Present Illness Patient is a 39 yo male with a history of substance abuse and alcoholism. He presents with increasing bilateral lower extremity swelling and concerns for alcohol withdrawal. He was previously hospitalized in January 2020 for alcohol withdrawal. He notes that he did not drink for several weeks after that hospitalization, but then started self-medication some orthopedic pain with alcohol. He acknowledges consumption of a fifth of liquor daily. He reports he can only go for several hours prior needing another drink due to hand tremors. He decided to present to the ED after significant lower extremity edema. Labs indicated a total bilirubin of 10 and INR of 1.7. AST was bumped to 200. Liver imaging suggests a cirrhotic liver which was known since his last admission. His calculated MELD score is 34 with a >50% 3 month mortality risk. His discriminant function was calculated at 35 on admission. He was promptly started on Methylprednisolone for alcoholic hepatitis. Venous dopplers of the lower extremities were negative. His edema is improving. Allergies Allergy/AdvReac Type Severity Reaction Status Date / Time naloxone AdvReac Unknown Verified 03/31/20 14:08 Home Medications Home Medications Medication Instructions Recorded Confirmed Type buprenorphine HCl 12 mg SUBLINGUAL DAILY 06/06/19 03/31/20 History Patient History Medical History (Updated 04/01/20 @ 12:56 by Tracey Hernandez PA-C) Heart valve regurgitation Leg swelling Surgical History No pertinent past surgical history Social History Smoking Status: Current every day smoker Cigarettes Per Day: 1/2 pack or less; Second Hand Exposure: Yes; Hx Alcohol Use: Yes Alcohol type: hard liquor Hx Substance Use: No Preferred Language: Angolan Communication Ability: Effective Optical Goods Drill Operator Required: No Beliefs That Will Affect Care: None Current Living Situation: Family and Significant Other Other Information That Helps Us Care for You: No Feels Safe at Home: Yes Safety Concerns: Feels Safe At This Time Assistive Devices: None Review of Systems Constitutional: no fever and no chills Eyes: no problem reported Ear, Nose, Mouth, Throat: no problem reported Respiratory: no cough and no dyspnea Cardiovascular: no chest pain Gastrointestinal: no abdominal pain, no vomiting, no blood in stools and no melena Musculoskeletal: + swelling Integumentary: no problem reported Neurologic: no problem reported Psychiatric: + substance abuse Hematologic / Lymphatic: no unexplained weight loss Physical Exam Constitutional: well developed; no acute distress Eyes: no conjunctival abnormality Neck: normal visual inspection Respiratory: normal respiratory effort Cardiovascular: Extremities: + edema Gastrointestinal (Abdomen): Inspection/Auscultation: abdomen normal to inspection Musculoskeletal: Head/Neck/Chest: normocephalic Skin: no rashes Neurologic: Motor/Sensory: + tremor Psychiatric: A+Ox3, euthymic affect Results & Data ([facility]) Vital Signs (Past 12 Hours) Vital Signs Temp Pulse Pulse Pulse Resp BP Pulse Ox 04/01/20 12:23 36.7 C 106 H 20 148/85 H 97 04/01/20 07:45 37 C 97 H 18 135/74 97 04/01/20 03:57 36.4 C L 100 H 18 141/76 H 97 04/01/20 00:49 91 H PG Care Time/CCT Total # of Minutes Spent Total Time Spent with Patient: Total time spent is greater than 50% in coordination of care (as documented) at patient's floor/unit and/or counseling patient: Coding Level of Care Code 62166 Inpt Consult Level 4 Diagnoses Alcoholic hepatitis K70.11 Ascites presence: with ascites Cirrhosis K70.31 Ascites presence: with ascites Hepatic cirrhosis type: alcoholic cirrhosis Alcohol withdrawal F10.239 Complication of substance-induced condition: with unspecified complication (1) Alcohol withdrawal Complication of substance-induced condition: with unspecified complication Qualified Code(s): F10.239 - Alcohol dependence with withdrawal, unspecified (2) Alcoholic hepatitis Ascites presence: with ascites Qualified Code(s): K70.11 - Alcoholic hepatitis with ascites (3) Cirrhosis Ascites presence: with ascites Hepatic cirrhosis type: alcoholic cirrhosis Qualified Code(s): K70.31 - Alcoholic cirrhosis of liver with ascites
[2020-04-01 17:44] LABS: Prothrombin Time 20.5 Seconds (9.0-12.0)
--- NOTE | 2020-04-01 18:09 | XRay Report ---
XR ankle LT min 3V routine, XR foot LT min 3V routine CLINICAL HISTORY: s/p injury 6wks ago, ongoing pain; eval Fx Left ankle and left foot pain. COMPARISON STUDY: None. FINDINGS: There is a subtle nondisplaced vertical fracture within the distal tibia which appears to e xtend to the articular surface. There is mild callus formation at the distal metaphysis of the left t ibia. Therefore, this consistent with a healing fracture. The distal fibula appears intact. There sof t tissue swelling within the left ankle. The soft tissue swelling within the dorsum of the foot. No a cute fracture or dislocation within the left foot. IMPRESSION: 1. Healing nondisplaced fracture within the distal tibia. 2. No acute fracture or dislocation within the left foot. ACT 112: Positive. There are findings on this exam that require communication between the performing entity and the patient following Patient Test Result Information Act ([place] Act 112) guidelines. Electronically signed by: Spencer Hutchinson M.D. 04/01/2020 6:07 PM
[2020-04-01] MEDS: LACTULOSE SYRUP 20 GM/30 ML UDC PO SCH (19:44)
--- NOTE | 2020-04-01 23:28 | Hospitalist Progress Note ---
Date of Service April 01, 2020 Assessment & Plan (1) Alcoholic hepatitis: severe acute liver failure 2nd to heavy alcohol abuse. remains on methylprednisolone 32mg daily as Madrey's discriminant function score was very high at admission. platelets are low, INR IS HIGH, total bili about 10. appreciate GI consult and recs. if any worsening would need transfer to tertiary care where liver team is available. checked ammonia this afternoon due to asterixis and sleepiness - was high in the 80s - started lactulose. repeat cbc, cmp, INR in am. (2) Lower extremity edema: likely due to advancing liver disease. cannot rule out cardiac causes. echo ordered. (3) Hyperammonemia: lactulose 20gm BID titrate 2-3 BMs/day (4) Cirrhosis: alcoholic cirrhosis with superimposed acute liver failure / alcoholic hepatitis. prognosis is guarded. daily labs. treat elevated ammonia. records indicate h/o HepC but last HepC RNA was 0. (5) Left tibial fracture: x-rays obtained of left foot and left ankle. latter shows evidence of healing left distal tibia fracture. would consult orthopedics to see if CAM boot or similar is needed. (6) Thrombocytopenia: 2nd to liver disease cbc daily for monitoring (7) Alcohol abuse: needs 100% abstinence place on etoh withdrawal protocol ativan prn gabapentin per protocol thiamine/folic acid supplementation telemetry (8) Coagulopathy: 2nd to cirrhosis and acute liver faliure did give vitamin K x 1 repeat INR tonight then again in am if it continues to worsen consider transfer to tertiary care (9) Murmur: TR? MR? echo (10) Chronically on opiate therapy: PDMP shows use of buprenorphine up until DECEMBER but no scripts since thus, has he been off such since early January? (11) DVT prophylaxis: Patient's INR is significantly elevated chemoprophylaxis will be contraindicated scds only patient is high risk of decompensation Admission and Anticipated Discharge Date Admission Date: March 31, 2020 Subjective patient states he is feeling "ok". remains very tired, poor appetite and shaky with tremors. he realizes that alcohol has harmed his liver tremendously. denies abd pain. denies dyspnea. tele overnight with NSR or sinus tach. main complaint is that of left ankle pain. had an injury to the left ankle 6 weeks ago (or more) but did not seek medical attention for it. hurts right over the ankle mortise. also w/ 2nd toe pain, left foot. has been struggling with edema for much of the summer. Review of Systems Constitutional: no fever Respiratory: no dyspnea Cardiovascular: no chest pain Gastrointestinal: no abdominal pain, no nausea, no vomiting and no blood in stools Physical Exam Constitutional: + ill appearing and + altered mental status; no acute distress Eyes: + scleral abnormality (Icterus ) ENMT: external ear and nose normal, oropharynx normal Respiratory: Auscultation: + diminished lung sounds; no crackles and no wheezes Cardiovascular: Rate/Rhythm: regular rhythm and + tachycardic Heart Sounds: normal S1, normal S2 and + murmur (3/6 systolic LLSB) Vessels: posterior tibial pulses present and dorsalis pedis pulses present; no JVD Extremities: + edema (1+ b/l) Gastrointestinal (Abdomen): Inspection/Auscultation: normal bowel sounds Percussion/Palpation: abdomen soft and + splenomegaly; abdomen nontender and no hepatomegaly Musculoskeletal: left ankle - mild tenderness to palpation over distal tib- fib; pain with passive flexion/extension of ankle; left foot - no metatarsal pain; 2nd toe with mild pain to palpation Skin: + jaundice (To lower chest) stasis changes b/l shins Neurologic: Motor/Sensory: + tremor and + asterixis Psychiatric: Orientation: alert (Sleepy but able to answer questions ) and oriented x 3 Results & Data Results & Data ([facility]) Vital Signs (Past 12 Hours) Vital Signs Temp Pulse Pulse Resp BP BP Pulse Ox 04/01/20 23:08 36.8 C 78 16 141/64 H 96 04/01/20 20:30 37.0 C 91 H 19 136/78 95 04/01/20 15:53 36.6 C 105 H 20 160/81 H 98 04/01/20 12:23 36.7 C 106 H 20 148/85 H 97 Laboratory Results Laboratory Results - last 24 hr 04/01/20 04/01/20 04/01/20 04:31 08:13 08:13 WBC 6.50 RBC 3.49 L Hgb 12.0 L Hct 34.5 L MCV 98.9 MCH 34.4 H MCHC 34.8 RDW Std Deviation 54.2 H RDW Coeff of Munir 15.1 H Plt Count 86 L MPV 10.2 PT INR Sodium 135 L Potassium 4.0 Chloride 100 Carbon Dioxide 27 Anion Gap 8.0 BUN 6 L Creatinine 0.77 Est Cr Clr Drug Dosing 157.8 Est GFR ( Amer) 132.5 Est GFR (Non-Af Amer) 114.3 BUN/Creatinine Ratio 8.1 L Glucose 144 H Calcium 8.9 Total Bilirubin 10.9 H AST 169 H ALT 49 Alkaline Phosphatase 112 Ammonia Total Protein 7.7 Albumin 3.0 L Globulin 4.7 H Albumin/Globulin Ratio 0.6 L Urine Opiates Screen Neg Ur Methadone, Qual Neg Urine Barbiturates Neg Ur Phencyclidine (PCP) Neg U Amphetamin/Meth Scrn Neg MDMA (Ecstasy) Screen Neg U Benzodiazepines Scrn Neg Ur Cocaine Metabolite Neg U Marijuana (THC) Screen Neg 04/01/20 04/01/20 04/01/20 08:34 17:22 17:22 WBC RBC Hgb Hct MCV MCH MCHC RDW Std Deviation RDW Coeff of Munir Plt Count MPV PT 20.6 H 20.5 H INR 2.0 H 2.0 H Sodium Potassium Chloride Carbon Dioxide Anion Gap BUN Creatinine Est Cr Clr Drug Dosing Est GFR ( Amer) Est GFR (Non-Af Amer) BUN/Creatinine Ratio Glucose Calcium Total Bilirubin AST ALT Alkaline Phosphatase Ammonia 82.9 H Total Protein Albumin Globulin Albumin/Globulin Ratio Urine Opiates Screen Ur Methadone, Qual Urine Barbiturates Ur Phencyclidine (PCP) U Amphetamin/Meth Scrn MDMA (Ecstasy) Screen U Benzodiazepines Scrn Ur Cocaine Metabolite U Marijuana (THC) Screen PG Care Time/CCT Total # of Minutes Spent Total Time Spent with Patient: Total time spent is greater than 50% in coordination of care (as documented) at patient's floor/unit and/or counseling patient: Coding Level of Care Code 89114 Subseq Hosp Care Lvl 3 Diagnoses Alcoholic hepatitis K70.11 Ascites presence: with ascites Lower extremity edema R60.0 Hyperammonemia E72.20 Cirrhosis K70.31 Ascites presence: with ascites Hepatic cirrhosis type: alcoholic cirrhosis Left tibial fracture S82 Encounter type: subsequent encounter Tibia location: distal Fracture type: closed Fracture alignment: nondisplaced Fracture healing: with routine healing Thrombocytopenia D69.6 Alcohol abuse F10.10 Coagulopathy D68.9 Murmur R01.1 Chronically on opiate therapy Z79.891 DVT prophylaxis Z29.9 (1) Left tibial fracture Encounter type: subsequent encounter Tibia location: distal Fracture type: closed Fracture alignment: nondisplaced Fracture healing: with routine healing (2) Alcoholic hepatitis Ascites presence: with ascites Qualified Code(s): K70.11 - Alcoholic hepatitis with ascites (3) Cirrhosis Ascites presence: with ascites Hepatic cirrhosis type: alcoholic cirrhosis Qualified Code(s): K70.31 - Alcoholic cirrhosis of liver with ascites
[2020-04-02] MEDS: GABAPENTIN 600 MG TAB PO SCH ×3 (05:57→15:52)
[2020-04-02 06:01] LABS: Hematocrit (blood only) 32.8 % (42-52); Hemoglobin 11.4 g/dL (14.0-18.0); Mean Corpuscular Hemoglobin 34.5 pg (25-34); Mean Corpuscular Hgb Conc 34.8 g/dL (32-36); Mean Corpuscular Volume 99.4 fL (80-100); RDW Coefficient of Variation 15.3 % (11.5-14.5); RDW Standard Deviation 56.2 fL (36.4-46.3); White Blood Count 7.84 K/uL (4.8-10.8)
[2020-04-02 06:10] LABS: INR 1.9 (0.9-1.1); Prothrombin Time 19.6 Seconds (9.0-12.0)
[2020-04-02 06:17] LABS: Mean Platelet Volume 10.1 fL (7.4-10.4); Platelet Count 78 K/uL (130-400)
[2020-04-02 06:34] LABS: Albumin Globulin Ratio 0.7 (0.9-2); Albumin Level 2.8 gm/dl (3.4-5.0); BUN Creatinine Ratio 11.9 (10-20); Bilirubin,Total 9.7 mg/dl (0.2-1); Calcium 8.4 mg/dl (8.5-10.1); Creatinine Clr Calc Pharmacy 159.3 ml/min; Est GFR (African American) 133.2; Est GFR (Non-African American) 114.9; Globulin 4.3 gm/dl (2.5-4.0); Potassium 3.8 mmol/L (3.5-5.1); Total Protein 7.1 gm/dl (6.4-8.2)
[2020-04-02] MEDS: LACTULOSE SYRUP 20 GM/30 ML UDC PO SCH ×2 (08:59→21:35)
[2020-04-02] MEDS: PANTOprazole 40 MG TAB PO SCH (09:00)
[2020-04-02] MEDS: FOLIC ACID 1 MG in SYRINGE 9.8 ML IV SCH (09:10)
[2020-04-02] MEDS: THIAMINE HCL 200 MG in SODIUM CHLORIDE 0.9% 50 ML IV SCH (09:11)
[2020-04-02] MEDS: LORazepam 1 MG/2 ML VIAL IV PRN ×2 (11:11→16:05)
--- NOTE | 2020-04-02 11:23 | XCELERA ---
[id number] \\[id number]
--- NOTE | 2020-04-02 13:31 | Hospitalist Progress Note ---
Date of Service April 02, 2020 Assessment & Plan (1) Alcoholic hepatitis: Severe acute liver failure 2nd to heavy alcohol abuse. - Remains on methylprednisolone 32mg daily as Madrey's discriminant function score was very high at admission. Platelets are low, INR IS HIGH, total bili about 10. - Appreciate GI consult and recs. - Labs all mildly improved today. Stable. (2) Lower extremity edema: Likely due to advancing liver disease. Echo on 04/02 showed EF 65-70%. - As above (3) Hyperammonemia: Noted on 04/01 with NH3 of 80. - Lactulose 20gm BID; titrate 2-3 BMs/day (4) Cirrhosis: Alcoholic cirrhosis with superimposed acute liver failure / alcoholic hepatitis. HCV Ab was positive, but RNA is negative. He likely cleared the infection. - Prognosis is guarded. - As above (5) Left tibial fracture: X-rays obtained of left foot and left ankle on 04/01 which showed evidence of healing left distal tibia fracture. - Orthopedics consult (6) Thrombocytopenia: 2nd to liver disease. - Monitor (7) Alcohol abuse: Needs 100% abstinence. - Gabapentin per protocol; RITA protocol - Thiamine/folic acid supplementation (8) Coagulopathy: 2nd to cirrhosis and acute liver faliure did give vitamin K x 1 repeat INR tonight then again in am if it continues to worsen consider transfer to tertiary care (9) [facility]: [place] [facility] Admission and Anticipated Discharge Date Admission Date: March 31, 2020 Subjective Still with some leg swelling today, though better than in the last few months. Also with hyperpigmentation across the shins and dorsum of feet. Reports no fevers/chills, chest pain, shortness of breath, abdominal pain, nausea, or vomiting. Physical Exam Constitutional: WD/WN, vitals as above Eyes: EOM intact bilaterally; no conjunctival abnormality ENMT: external ear and nose normal, oropharynx normal Neck: trachea midline, no thyromegaly normal visual inspection Respiratory: normal respiratory effort, lungs clear to auscultation no respiratory distress Cardiovascular: Rate/Rhythm: regular rhythm and + tachycardic Heart Sounds: normal S1 and normal S2 Extremities: + edema (In both legs L>R) Gastrointestinal (Abdomen): Inspection/Auscultation: abdomen normal to inspection; abdomen not distended Musculoskeletal: no cyanosis or clubbing, extremities motor strength 5/5 Skin: no rashes, warm and dry Neurologic: moves all extremities and awake Psychiatric: Orientation: alert, oriented to person and cooperative Results & Data Results & Data ([facility]) Vital Signs (Past 12 Hours) Vital Signs Temp Pulse Pulse Resp BP Pulse Ox Pulse Ox 04/02/20 11:03 36.5 C 92 H 12 162/91 H 98 04/02/20 08:00 81 96 04/02/20 07:47 36.8 C 94 H 16 148/73 H 99 04/02/20 03:32 36.8 C 92 H 16 140/77 97 PG Care Time/CCT Total # of Minutes Spent Total Time Spent with Patient: Total time spent is greater than 50% in coordination of care (as documented) at patient's floor/unit and/or counseling patient: Coding Level of Care Code 76272 Subseq Hosp Care Lvl 2 Diagnoses Alcoholic hepatitis K70.11 Ascites presence: with ascites Lower extremity edema R60.0 Hyperammonemia E72.20 Cirrhosis K70.31 Hepatic cirrhosis type: alcoholic cirrhosis Ascites presence: with ascites Left tibial fracture S82.202A Encounter type: subsequent encounter Tibia location: distal Fracture type: closed Fracture alignment: nondisplaced Fracture healing: with routine healing Thrombocytopenia D69.6 Alcohol abuse F10.10 Coagulopathy D68.9 DVT prophylaxis Z29.9 (1) Alcoholic hepatitis Ascites presence: with ascites Qualified Code(s): K70.11 - Alcoholic hepatitis with ascites (2) Cirrhosis Hepatic cirrhosis type: alcoholic cirrhosis Ascites presence: with ascites Qualified Code(s): K70.31 - Alcoholic cirrhosis of liver with ascites (3) Left tibial fracture Encounter type: subsequent encounter Tibia location: distal Fracture type: closed Fracture alignment: nondisplaced Fracture healing: with routine healing
[2020-04-03] MEDS: GABAPENTIN 600 MG TAB PO SCH ×2 (04:33→11:42)
--- NOTE | 2020-04-03 06:10 | Communication Note ---
Date of Service: April 03, 2020 Per nursing, this pt would like to be discharged today. Has been refusing his full dose neurontin. Resident Activity Tracking Resident Involvement: Quality Eng Coverage Note Care Provided: Adult Hospital Medicine
[2020-04-03 07:30] LABS: Hematocrit (blood only) 36.3 % (42-52); Hemoglobin 12.3 g/dL (14.0-18.0); Mean Corpuscular Hemoglobin 34.2 pg (25-34); Mean Corpuscular Hgb Conc 33.9 g/dL (32-36); Mean Corpuscular Volume 100.8 fL (80-100); Mean Platelet Volume 10.3 fL (7.4-10.4); Platelet Count 96 K/uL (130-400); RDW Coefficient of Variation 15.4 % (11.5-14.5); RDW Standard Deviation 56.7 fL (36.4-46.3); White Blood Count 9.83 K/uL (4.8-10.8)
[2020-04-03 07:38] LABS: INR 1.9 (0.9-1.1); Prothrombin Time 19.4 Seconds (9.0-12.0)
[2020-04-03 08:04] LABS: Albumin Globulin Ratio 0.7 (0.9-2); Albumin Level 3.2 gm/dl (3.4-5.0); BUN Creatinine Ratio 11.7 (10-20); Bilirubin,Total 9.4 mg/dl (0.2-1); Calcium 8.8 mg/dl (8.5-10.1); Creatinine Clr Calc Pharmacy 153.3 ml/min; Est GFR (African American) 131.1; Est GFR (Non-African American) 113.1; Globulin 4.6 gm/dl (2.5-4.0); Potassium 3.6 mmol/L (3.5-5.1); Total Protein 7.9 gm/dl (6.4-8.2)
[2020-04-03] MEDS: FOLIC ACID 1 MG in SYRINGE 9.8 ML IV SCH (08:21)
[2020-04-03] MEDS: LACTULOSE SYRUP 20 GM/30 ML UDC PO SCH ×2 (08:21→20:01)
[2020-04-03] MEDS: PANTOprazole 40 MG TAB PO SCH (08:22)
[2020-04-03] MEDS: THIAMINE HCL 200 MG in SODIUM CHLORIDE 0.9% 50 ML IV SCH (08:23)
--- NOTE | 2020-04-03 15:35 | Hospitalist Progress Note ---
Date of Service April 03, 2020 Assessment & Plan (1) Alcoholic hepatitis: Severe acute liver failure 2nd to heavy alcohol abuse. - Remains on methylprednisolone 32mg daily. Balta's DF is still 43.4. Per UpToDate, if no response in 1 week, then can consider this treatment failure and stop steroids, but will defer to GI. - Appreciate GI consult and recs. - Labs all stable today. (2) Lower extremity edema: Likely due to advancing liver disease. Echo on 04/02 showed EF 65-70%. - As above (3) Hyperammonemia: Noted on 04/01 with NH3 of 80. - Lactulose 20gm BID; titrate 2-3 BMs/day (4) Cirrhosis: Alcoholic cirrhosis with superimposed acute liver failure / alcoholic hepatitis. HCV Ab was positive, but RNA is negative. He likely cleared the infection. - Prognosis is guarded. - As above (5) Left tibial fracture: X-rays obtained of left foot and left ankle on 04/01 which showed evidence of healing left distal tibia fracture. - Consider orthopedics consult if it hurts. (6) Thrombocytopenia: 2nd to liver disease. - Monitor (7) Alcohol abuse: Needs 100% abstinence. - Gabapentin per protocol; RITA protocol - Thiamine/folic acid supplementation (8) Coagulopathy: 2nd to cirrhosis and acute liver faliure. - Did give vitamin K x 1 (9) DVT prophylaxis: Lovenox 40 mg SQ daily - Despite high INR, anti-coagulant factors (ie Protein C & S) are also depleted, so his VTE risk is not low as if he were on anticoagulation. Admission and Anticipated Discharge Date Admission Date: March 31, 2020 Subjective Feels well today. Urine is still jory, but otherwise no major issues. Reports no fevers/chills, chest pain, shortness of breath, abdominal pain, nausea, or vomiting. Physical Exam Constitutional: WD/WN, vitals as above Eyes: EOM intact bilaterally; no conjunctival abnormality ENMT: external ear and nose normal, oropharynx normal Neck: trachea midline, no thyromegaly normal visual inspection Respiratory: normal respiratory effort, lungs clear to auscultation no respiratory distress Cardiovascular: Rate/Rhythm: regular rhythm and + tachycardic Heart Sounds: normal S1 and normal S2 Extremities: + edema (In both legs L>R) Gastrointestinal (Abdomen): Inspection/Auscultation: abdomen normal to inspection; abdomen not distended Musculoskeletal: no cyanosis or clubbing, extremities motor strength 5/5 Skin: no rashes, warm and dry Neurologic: moves all extremities and awake Psychiatric: Orientation: alert, oriented to person and cooperative Results & Data Results & Data ([facility]) Vital Signs (Past 12 Hours) Vital Signs Temp Pulse Resp BP BP Pulse Ox Pulse Ox 04/03/20 07:59 97 04/03/20 07:25 97 04/03/20 07:05 36.5 C 94 H 18 152/98 H 97 04/03/20 04:29 36.9 C 79 20 145/88 H 99 PG Care Time/CCT Total # of Minutes Spent Total Time Spent with Patient: Total time spent is greater than 50% in coordination of care (as documented) at patient's floor/unit and/or counseling patient: Coding Level of Care Code 59989 Subseq Hosp Care Lvl 2 Diagnoses Alcoholic hepatitis K70.11 Ascites presence: with ascites Lower extremity edema R60.0 Hyperammonemia E72.20 Cirrhosis K70.31 Hepatic cirrhosis type: alcoholic cirrhosis Ascites presence: with ascites Left tibial fracture S82.202A Encounter type: subsequent encounter Tibia location: distal Fracture type: closed Fracture alignment: nondisplaced Fracture healing: with routine healing Thrombocytopenia D69.6 Alcohol abuse F10.10 Coagulopathy D68.9 DVT prophylaxis Z29.9 (1) Alcoholic hepatitis Ascites presence: with ascites Qualified Code(s): K70.11 - Alcoholic hepatitis with ascites (2) Cirrhosis Hepatic cirrhosis type: alcoholic cirrhosis Ascites presence: with ascites Qualified Code(s): K70.31 - Alcoholic cirrhosis of liver with ascites (3) Left tibial fracture Encounter type: subsequent encounter Tibia location: distal Fracture type: closed Fracture alignment: nondisplaced Fracture healing: with routine healing
[2020-04-04] MEDS ORDERED: LORazepam 1 MG TAB PO PRN (00:03)
[2020-04-04] MEDS ORDERED: diphenhydrAMINE Capsule 25 MG CAP PO PRN (00:07)
[2020-04-04] MEDS ORDERED: LORazepam 2 MG/ML VIAL (IM USE) IM ONE (00:18)
[2020-04-04] MEDS ORDERED: LORazepam 2 MG/ML VIAL (IM USE) IM PRN (00:26)
[2020-04-04 06:17] LABS: Hematocrit (blood only) 36.8 % (42-52); Hemoglobin 12.7 g/dL (14.0-18.0); Mean Corpuscular Hemoglobin 34.8 pg (25-34); Mean Corpuscular Hgb Conc 34.5 g/dL (32-36); Mean Corpuscular Volume 100.8 fL (80-100); RDW Coefficient of Variation 15.8 % (11.5-14.5); RDW Standard Deviation 58.3 fL (36.4-46.3); Red Blood Count 3.65 M/uL (4.7-6.1); White Blood Count 9.72 K/uL (4.8-10.8)
[2020-04-04 06:18] LABS: Mean Platelet Volume 10.4 fL (7.4-10.4); Platelet Count 89 K/uL (130-400)
[2020-04-04 06:22] LABS: INR 1.9 (0.9-1.1); Prothrombin Time 19.5 Seconds (9.0-12.0)
[2020-04-04 07:06] LABS: Albumin Globulin Ratio 0.7 (0.9-2); Albumin Level 3.2 gm/dl (3.4-5.0); BUN Creatinine Ratio 11.9 (10-20); Bilirubin,Total 8.9 mg/dl (0.2-1); Calcium 8.7 mg/dl (8.5-10.1); Creatinine Clr Calc Pharmacy 142.5 ml/min; Est GFR (African American) 127.2; Est GFR (Non-African American) 109.8; Globulin 4.8 gm/dl (2.5-4.0); Magnesium 2.1 mg/dl (1.8-2.4); Potassium 3.5 mmol/L (3.5-5.1)
[2020-04-04] MEDS: THIAMINE HCL 100 MG TAB PO SCH (09:00)
[2020-04-04] MEDS: ENOXAPARIN INJ 40 MG/0.4 ML SYR SQ SCH (09:00)
[2020-04-04] MEDS: FOLIC ACID 1 MG TAB PO SCH (09:01)
[2020-04-04] MEDS: LACTULOSE SYRUP 20 GM/30 ML UDC PO SCH ×2 (09:01→21:07)
[2020-04-04] MEDS: PANTOprazole 40 MG TAB PO SCH (09:01)
--- NOTE | 2020-04-04 11:59 | Gastroenterology Progress Note ---
Date of Service April 04, 2020 Assessment & Plan (1) Alcoholic hepatitis: (2) Elevated INR: 1. Continue Methylprednisolone for now. DF 34. Will reassess utility of ongoing use at day 7. 2. Continue to trend PT/INR and liver panel. 3. If patient further decompensates or becomes encephalopathic, recommend transfer to transplant center. 4. Continue supportive care. Admission and Anticipated Discharge Date Admission Date: March 31, 2020 Supervising Physician Co-Signing Physician Notes I personally evaluated the patient and agree with the findings as documented by SHERLYN Hernadez Exam: abd: soft, nt, nd continue steroids for alcoholic hepatitis, calculate lille score to determine efficacy on hospital day 7 which is 04/07. Subjective Patient reports some lower extremity edema and jaundice and left ankle pain. He is awaiting results of an ankle x ray. +tremors. He denies any abdominal pain, nausea or vomiting, pruritus, dark urine, acholic stools, melena, hematochezia or fatigue. He remains on oral corticosteroids. Laboratory testing reviewed today. Kenneth DF remains at 34. Review of Systems Review of Systems: All systems reviewed & are unremarkable except as noted in HPI & below Physical Exam Constitutional: WD/WN, vitals as above well developed and well nourished Eyes: sclera icteric bilaterally Neck: normal visual inspection Respiratory: normal respiratory effort, lungs clear to auscultation Cardiovascular: RRR, no murmur, no edema Gastrointestinal (Abdomen): normal bowel sounds, soft, nontender, no hepatosplenomegaly Musculoskeletal: Extremities: + lower leg abnormality Left (edema) Gait: normal gait Skin: + jaundice Neurologic: Motor/Sensory: + tremor Psychiatric: A+Ox3, euthymic affect Results & Data Results & Data ([facility]) Vital Signs (Past 12 Hours) Vital Signs Temp Pulse Resp BP Pulse Ox 04/04/20 07:44 37.0 C 81 18 140/81 100 Laboratory Results Abnormal lab results 04/04/20 04/04/20 04/04/20 Range/Units 05:23 05:23 05:23 RBC 3.65 L (4.7-6.1) M/uL Hgb 12.7 L (14.0-18.0) g/dL Hct 36.8 L (42-52) % MCV 100.8 H (80-100) fL MCH 34.8 H (25-34) pg RDW Std Deviation 58.3 H (36.4-46.3) fL RDW Coeff of Munir 15.8 H (11.5-14.5) % Plt Count 89 L (130-400) K/uL PT 19.5 H (9.0-12.0) Seconds INR 1.9 H (0.9-1.1) Glucose 151 H (70-99) mg/dl Total Bilirubin 8.9 H (0.2-1) mg/dl AST 129 H (15-37) U/L Alkaline Phosphatase 170 H (45-117) U/L Albumin 3.2 L (3.4-5.0) gm/dl Globulin 4.8 H (2.5-4.0) gm/dl Albumin/Globulin Ratio 0.7 L (0.9-2) PG Care Time/CCT Total # of Minutes Spent Total Time Spent with Patient: Total time spent is greater than 50% in coordination of care (as documented) at patient's floor/unit and/or counseling patient: Coding Level of Care Code 94565 Subseq Hosp Care Lvl 3 Diagnoses Alcoholic hepatitis K70.11 Ascites presence: with ascites Elevated INR R79.1 (1) Alcoholic hepatitis Ascites presence: with ascites Qualified Code(s): K70.11 - Alcoholic hepatitis with ascites
[2020-04-04] MEDS ORDERED: GABAPENTIN 600 MG TAB PO SCH (12:00)
--- NOTE | 2020-04-04 15:42 | Hospitalist Progress Note ---
Date of Service April 04, 2020 Assessment & Plan (1) Alcoholic hepatitis: Severe acute liver failure 2nd to heavy alcohol abuse. - Remains on methylprednisolone 32mg daily. Balta's DF is still 43.4. Per UpToDate, if no response in 1 week, then can consider this treatment failure and stop steroids, but will defer to GI. - Appreciate GI consult and recs. - Labs all stable today. Will continue steroids. (2) Lower extremity edema: Likely due to advancing liver disease. Echo on 04/02 showed EF 65-70%. - As above (3) Hyperammonemia: Noted on 04/01 with NH3 of 80. - Lactulose 20gm BID; titrate 2-3 BMs/day (4) Cirrhosis: Alcoholic cirrhosis with superimposed acute liver failure / alcoholic hepatitis. HCV Ab was positive, but RNA is negative. He likely cleared the infection. - Prognosis is guarded. - As above (5) Left tibial fracture: X-rays obtained of left foot and left ankle on 04/01 which showed evidence of healing, non-displaced left distal tibia fracture. - Consider orthopedics consult if it hurts, though presently he is walking around without difficulty. (6) Thrombocytopenia: 2nd to liver disease. - Monitor (7) Alcohol abuse: Needs 100% abstinence. - Gabapentin per protocol; RITA protocol - Thiamine/folic acid supplementation (8) Coagulopathy: 2nd to cirrhosis and acute liver faliure. - Did give vitamin K x 1 (9) DVT prophylaxis: Lovenox 40 mg SQ daily - Despite high INR, anti-coagulant factors (ie Protein C & S) are also depleted, so his VTE risk is not low as if he were on anticoagulation. Admission and Anticipated Discharge Date Admission Date: March 31, 2020 Subjective Feeling well today. Up and in the halls walking around. Visiting his fiancee on the second floor. Reports no fevers/chills, chest pain, shortness of breath, abdominal pain, nausea, or vomiting. Physical Exam Constitutional: WD/WN, vitals as above Eyes: EOM intact bilaterally; no conjunctival abnormality ENMT: external ear and nose normal, oropharynx normal Neck: trachea midline, no thyromegaly normal visual inspection Respiratory: normal respiratory effort, lungs clear to auscultation no respiratory distress Cardiovascular: Rate/Rhythm: regular rhythm and + tachycardic Heart Sounds: normal S1 and normal S2 Extremities: + edema (In both legs L>R) Gastrointestinal (Abdomen): Inspection/Auscultation: abdomen normal to inspection; abdomen not distended Musculoskeletal: no cyanosis or clubbing, extremities motor strength 5/5 Skin: no rashes, warm and dry Neurologic: moves all extremities and awake Psychiatric: Orientation: alert, oriented to person and cooperative Results & Data Results & Data ([facility]) Vital Signs (Past 12 Hours) Vital Signs Temp Pulse Resp BP Pulse Ox 04/04/20 07:44 37.0 C 81 18 140/81 100 PG Care Time/CCT Total # of Minutes Spent Total Time Spent with Patient: Total time spent is greater than 50% in coordination of care (as documented) at patient's floor/unit and/or counseling patient: Coding Level of Care Code 55468 Subseq Hosp Care Lvl 2 Diagnoses Alcoholic hepatitis K70.11 Ascites presence: with ascites Lower extremity edema R60.0 Hyperammonemia E72.20 Cirrhosis K70.31 Hepatic cirrhosis type: alcoholic cirrhosis Ascites presence: with ascites Left tibial fracture S82.202A Encounter type: subsequent encounter Tibia location: distal Fracture type: closed Fracture alignment: nondisplaced Fracture healing: with routine healing Thrombocytopenia D69.6 Alcohol abuse F10.10 Coagulopathy D68.9 DVT prophylaxis Z29.9 (1) Alcoholic hepatitis Ascites presence: with ascites Qualified Code(s): K70.11 - Alcoholic hepatitis with ascites (2) Cirrhosis Hepatic cirrhosis type: alcoholic cirrhosis Ascites presence: with ascites Qualified Code(s): K70.31 - Alcoholic cirrhosis of liver with ascites (3) Left tibial fracture Encounter type: subsequent encounter Tibia location: distal Fracture type: closed Fracture alignment: nondisplaced Fracture healing: with routine healing
[2020-04-04] MEDS: GABAPENTIN 300 MG CAP PO SCH (21:07)
[2020-04-05 05:43] LABS: Hematocrit (blood only) 35.1 % (42-52); Hemoglobin 12.2 g/dL (14.0-18.0); Mean Corpuscular Hemoglobin 34.3 pg (25-34); Mean Corpuscular Hgb Conc 34.8 g/dL (32-36); Mean Corpuscular Volume 98.6 fL (80-100); RDW Coefficient of Variation 15.6 % (11.5-14.5); RDW Standard Deviation 56.3 fL (36.4-46.3); Red Blood Count 3.56 M/uL (4.7-6.1); White Blood Count 8.37 K/uL (4.8-10.8)
[2020-04-05 05:45] LABS: Mean Platelet Volume 10.5 fL (7.4-10.4); Platelet Count 84 K/uL (130-400)
[2020-04-05 05:48] LABS: INR 1.9 (0.9-1.1); Prothrombin Time 19.8 Seconds (9.0-12.0)
[2020-04-05 06:31] LABS: Albumin Globulin Ratio 0.7 (0.9-2); BUN Creatinine Ratio 14.2 (10-20); Bilirubin,Total 8.3 mg/dl (0.2-1); Calcium 8.5 mg/dl (8.5-10.1); Creatinine Clr Calc Pharmacy 170.5 ml/min; Est GFR (Non-African American) 118.2; Globulin 4.4 gm/dl (2.5-4.0); Magnesium 2.2 mg/dl (1.8-2.4); Potassium 3.9 mmol/L (3.5-5.1); Total Protein 7.4 gm/dl (6.4-8.2)
[2020-04-05] MEDS: GABAPENTIN 300 MG CAP PO SCH ×2 (08:53→20:57)
[2020-04-05] MEDS: THIAMINE HCL 100 MG TAB PO SCH (08:54)
[2020-04-05] MEDS: FOLIC ACID 1 MG TAB PO SCH (08:54)
[2020-04-05] MEDS: LACTULOSE SYRUP 20 GM/30 ML UDC PO SCH ×2 (08:54→20:58)
[2020-04-05] MEDS: PANTOprazole 40 MG TAB PO SCH (08:55)
[2020-04-05] MEDS: ENOXAPARIN INJ 40 MG/0.4 ML SYR SQ SCH (08:55)
[2020-04-05] MEDS: hydrOXYzine HCl 25 MG TAB PO PRN (18:25)
--- NOTE | 2020-04-05 18:37 | Hospitalist Progress Note ---
Date of Service April 05, 2020 Assessment & Plan (1) Alcoholic hepatitis: Severe acute liver failure 2nd to heavy alcohol abuse. - Remains on methylprednisolone 32mg daily. Balta's DF is still 44. Per UpToDate, if no response in 1 week, then can consider this treatment failure and stop steroids, but will defer to GI. - Appreciate GI consult and recs. - Labs remain stable today. Will continue steroids. - discussed care home w EtOH cessation and hep C treatment (2) Lower extremity edema: Likely due to advancing liver disease. Echo on 04/02 showed EF 65-70%. ambulation should help. (3) Hyperammonemia: Noted on 04/01 with NH3 of 80. - Lactulose 20gm BID; titrate 2-3 BMs/day - mentation appears clear (4) Cirrhosis: Alcoholic cirrhosis with superimposed acute liver failure / alcoholic hepatitis. HCV Ab was positive, but RNA is negative. He likely cleared the infection. - Prognosis is guarded. discussed absolute need for EtOH cessation (5) Left tibial fracture: X-rays obtained of left foot and left ankle on 04/01 which showed evidence of healing, non-displaced left distal tibia fracture. - appears to be healing well, no significant pain. did discuss that steroids could possibly impede bone healing but: -fulminant liver failure would be of more terminal consequence than tibia fx -not really having much of any significant pain w walking -fracture appears well aligned and healing already on imaging (6) Thrombocytopenia: 2nd to liver disease. - Monitor (7) Alcohol abuse: Needs 100% abstinence. - appears past withdrawal - Thiamine/folic acid supplementation (8) Coagulopathy: 2nd to cirrhosis and acute liver faliure. - Did give vitamin K x 1 (9) DVT prophylaxis: Lovenox 40 mg SQ daily - Despite high INR, anti-coagulant factors (ie Protein C & S) are also depleted, so his VTE risk is not low as if he were on anticoagulation. Admission and Anticipated Discharge Date Admission Date: March 31, 2020 Subjective notes anxiety. notes that EtOH has been one of his major coping mechanisms through the years. aware that he needs to change this. walking with a small limp but no significant pain. wonders how steroids for liver might impact his ankle. notes that when he fell off porch he started drinking more heavily to "self medicate" for ankle pain. discussed labs, concerns, current treatment, possible prognoses in detail, answered all questiosn to the best of my ability and to his satisfaction Review of Systems Review of Systems: All systems reviewed & are unremarkable except as noted in HPI & below Physical Exam Physical Exam: gen aaox3 pleasant nad heent nc at mmm breathing unlabored no accessory muscles good effort skin visible jaundice no pallor neuro no focal deficits gait stable/steady no visible limp that i see Results & Data Results & Data ([facility]) Vital Signs (Past 12 Hours) Vital Signs Temp Pulse Resp BP BP Pulse Ox 04/05/20 18:16 98.2 F 109 H 18 160/84 H 98 04/05/20 07:11 98.2 F 72 18 142/91 H 99 PG Care Time/CCT Total # of Minutes Spent Total Time Spent with Patient: Total time spent is greater than 50% in coordination of care (as documented) at patient's floor/unit and/or counseling patient: Coding Level of Care Code 88936 Subseq Hosp Care Lvl 3 Diagnoses Alcoholic hepatitis K70.11 Ascites presence: with ascites Lower extremity edema R60.0 Hyperammonemia E72.20 Cirrhosis K70.31 Hepatic cirrhosis type: alcoholic cirrhosis Ascites presence: with ascites Left tibial fracture S82.202A Encounter type: subsequent encounter Tibia location: distal Fracture type: closed Fracture alignment: nondisplaced Fracture healing: with routine healing Thrombocytopenia D69.6 Alcohol abuse F10.10 Coagulopathy D68.9 DVT prophylaxis Z29.9 (1) Alcoholic hepatitis Ascites presence: with ascites Qualified Code(s): K70.11 - Alcoholic hepatitis with ascites (2) Cirrhosis Hepatic cirrhosis type: alcoholic cirrhosis Ascites presence: with ascites Qualified Code(s): K70.31 - Alcoholic cirrhosis of liver with ascites (3) Left tibial fracture Encounter type: subsequent encounter Tibia location: distal Fracture type: closed Fracture alignment: nondisplaced Fracture healing: with routine healing
[2020-04-06] MEDS: THIAMINE HCL 100 MG TAB PO SCH (08:44)
[2020-04-06] MEDS: FOLIC ACID 1 MG TAB PO SCH (08:44)
[2020-04-06] MEDS: PANTOprazole 40 MG TAB PO SCH (08:45)
[2020-04-06] MEDS: ENOXAPARIN INJ 40 MG/0.4 ML SYR SQ SCH (08:45)
[2020-04-06] MEDS: GABAPENTIN 300 MG CAP PO SCH ×3 (08:45→21:21)
[2020-04-06] MEDS: LACTULOSE SYRUP 20 GM/30 ML UDC PO SCH ×2 (08:45→21:21)
[2020-04-06] MEDS: hydrOXYzine HCl 25 MG TAB PO PRN ×2 (09:02→19:26)
[2020-04-06 09:42] LABS: INR 1.9 (0.9-1.1)
[2020-04-06 10:00] LABS: Albumin Level 3.3 gm/dl (3.4-5.0); BUN Creatinine Ratio 12.7 (10-20); Calcium 8.8 mg/dl (8.5-10.1); Creatinine Clr Calc Pharmacy 136.1 ml/min; Est GFR (African American) 124.8; Est GFR (Non-African American) 107.7; Potassium 3.6 mmol/L (3.5-5.1)
[2020-04-06 10:04] LABS: Albumin Globulin Ratio 0.7 (0.9-2); Globulin 4.9 gm/dl (2.5-4.0); Total Protein 8.2 gm/dl (6.4-8.2)
--- NOTE | 2020-04-06 19:19 | Hospitalist Progress Note ---
Date of Service April 06, 2020 Assessment & Plan (1) Alcoholic hepatitis: Severe acute liver failure 2nd to heavy alcohol abuse. - Remains on methylprednisolone 32mg daily. Balta's DF is still up. Per UpToDate, if no response in 1 week, then can consider this treatment failure and stop steroids, but will defer to GI. - Appreciate GI consult and recs. - INR stable, bili increased some - continue to follow closely (2) Lower extremity edema: Likely due to advancing liver disease. Echo on 04/02 showed EF 65-70%. ambulation should help. not worse. (3) Hyperammonemia: Noted on 04/01 with NH3 of 80. - Lactulose 20gm BID; titrate 2-3 BMs/day - mentation appears clear (4) Cirrhosis: Alcoholic cirrhosis with superimposed acute liver failure / alcoholic hepatitis. HCV Ab was positive, but RNA is negative. He likely cleared the infection. - Prognosis is guarded. understands the need for EtOH cessation (5) Left tibial fracture: X-rays obtained of left foot and left ankle on 04/01 which showed evidence of healing, non-displaced left distal tibia fracture. - appears to be healing well, no significant pain. did discuss that steroids could possibly impede bone healing but: -fulminant liver failure would be of more terminal consequence than tibia fx -not really having much of any significant pain w walking -fracture appears well aligned and healing already on imaging walking well no significant problems with this at this time (6) Thrombocytopenia: 2nd to liver disease. - Monitor (7) Alcohol abuse: Needs 100% abstinence. - appears past withdrawal - Thiamine/folic acid supplementation (8) Coagulopathy: 2nd to cirrhosis and acute liver faliure. - Did give vitamin K x 1 (9) DVT prophylaxis: Lovenox 40 mg SQ daily - Despite high INR, anti-coagulant factors (ie Protein C & S) are also depleted, so his VTE risk is not low as if he were on anticoagulation. Admission and Anticipated Discharge Date Admission Date: March 31, 2020 Subjective feeling good really wants to go home but on discussions he expresses understanding of why ongoing hospitalization. walking well. mostly would like to get a shower and clean clothes. Review of Systems Review of Systems: All systems reviewed & are unremarkable except as noted in HPI & below Physical Exam Physical Exam: gen aaox3 pleasant nad heent nc at mmm breathing unlabored no accessory muscles good effort skin no rashes (+) icterus neuro no focal deficits gait steady and stable Results & Data Results & Data ([facility]) Vital Signs (Past 12 Hours) Vital Signs Temp Pulse Resp BP Pulse Ox 04/06/20 07:31 98.4 F 74 18 133/82 97 PG Care Time/CCT Total # of Minutes Spent Total Time Spent with Patient: Total time spent is greater than 50% in coordination of care (as documented) at patient's floor/unit and/or counseling patient: Coding Level of Care Code 16709 Subseq Hosp Care Lvl 3 Diagnoses Alcoholic hepatitis K70.11 Ascites presence: with ascites Lower extremity edema R60.0 Hyperammonemia E72.20 Cirrhosis K70.31 Hepatic cirrhosis type: alcoholic cirrhosis Ascites presence: with ascites Left tibial fracture S82.202A Encounter type: subsequent encounter Tibia location: distal Fracture type: closed Fracture alignment: nondisplaced Fracture healing: with routine healing Thrombocytopenia D69.6 Alcohol abuse F10.10 Coagulopathy D68.9 DVT prophylaxis Z29.9 (1) Alcoholic hepatitis Ascites presence: with ascites Qualified Code(s): K70.11 - Alcoholic hepatitis with ascites (2) Cirrhosis Hepatic cirrhosis type: alcoholic cirrhosis Ascites presence: with ascites Qualified Code(s): K70.31 - Alcoholic cirrhosis of liver with ascites (3) Left tibial fracture Encounter type: subsequent encounter Tibia location: distal Fracture type: closed Fracture alignment: nondisplaced Fracture healing: with routine healing
[2020-04-06] MEDS: NICOTINE 21 MG/24 HR TDSY TD SCH (21:18)
[2020-04-07] MEDS: NICOTINE 21 MG/24 HR TDSY TD SCH (07:55)
[2020-04-07] MEDS: buprenorphine HCL 2 MG SUBL SL SCH ×2 (07:55→12:55)
[2020-04-07] MEDS: THIAMINE HCL 100 MG TAB PO SCH (07:56)
[2020-04-07] MEDS: GABAPENTIN 300 MG CAP PO SCH (07:56)
[2020-04-07] MEDS: LACTULOSE SYRUP 20 GM/30 ML UDC PO SCH (07:56)
[2020-04-07] MEDS: FOLIC ACID 1 MG TAB PO SCH (07:57)
[2020-04-07] MEDS: ENOXAPARIN INJ 40 MG/0.4 ML SYR SQ SCH (07:57)
[2020-04-07] MEDS: PANTOprazole 40 MG TAB PO SCH (07:57)
[2020-04-07] MEDS: hydrOXYzine HCl 25 MG TAB PO PRN (08:08)
--- NOTE | 2020-04-07 08:16 | Hospitalist Progress Note ---
Date of Service April 07, 2020 Assessment & Plan (1) Alcoholic hepatitis: 39 y/o M w/ hx of coagulopathy and etoh use disorder who presents w/ etoh withdrawal and acute liver failure. admitted 03/31 would like inhaler on d/c. needs liver labs ordered. per pt was told d/c home today vitals 0700. ~159/83 consistently. other vitals wnl bmp wnl. liver panel abnormal alk phos 195. t bili 10. ast 119. alt 80 Ca wnl no recent imaging last few days Roy score today: 0.043. Per GI: recommend d/c steroids because bilirubin did not improve Severe acute liver failure 2nd to heavy alcohol abuse. - Remains on methylprednisolone 32mg daily. Martiney's DF is still up. Per UpToDate, if no response in 1 week, then can consider this treatment failure and stop steroids, but will defer to GI. - Appreciate GI consult and recs. - INR stable, bili increased some - continue to follow closely (2) Lower extremity edema: Likely due to advancing liver disease. Echo on 04/02 showed EF 65-70%. ambulation should help. not worse. (3) Hyperammonemia: Noted on 04/01 with NH3 of 80. - Lactulose 20gm BID; titrate 2-3 BMs/day - mentation appears clear (4) Cirrhosis: Alcoholic cirrhosis with superimposed acute liver failure / alcoholic hepatitis. HCV Ab was positive, but RNA is negative. He likely cleared the infection. - Prognosis is guarded. understands the need for EtOH cessation (5) Left tibial fracture: X-rays obtained of left foot and left ankle on 04/01 which showed evidence of healing, non-displaced left distal tibia fracture. - appears to be healing well, no significant pain. did discuss that steroids could possibly impede bone healing but: -fulminant liver failure would be of more terminal consequence than tibia fx -not really having much of any significant pain w walking -fracture appears well aligned and healing already on imaging walking well no significant problems with this at this time (6) Thrombocytopenia: 2nd to liver disease. - Monitor (7) Alcohol abuse: Needs 100% abstinence. - appears past withdrawal - Thiamine/folic acid supplementation (8) Coagulopathy: 2nd to cirrhosis and acute liver faliure. - Did give vitamin K x 1 (9) DVT prophylaxis: Lovenox 40 mg SQ daily - Despite high INR, anti-coagulant factors (ie Protein C & S) are also depleted, so his VTE risk is not low as if he were on anticoagulation. Admission and Anticipated Discharge Date Admission Date: March 31, 2020 Subjective No current complaints intermittent sob and abd pain, none currently. other ros neg. states doesn't need ativan currently and denies withdrawal sxs. he had been hospitalized 3 days for etoh withdrawal. discharged and fractured ankle, then self medicated. readmitted for etoh and found to have acute liver failure. Review of Systems Review of Systems: Constitutional: Denies fever, chills, weight change Eyes: Denies blurry vision, vision changes ENT: Denies sore throat, sinus pain Cardiovascular: Denies chest pain, palpitations Respiratory: Denies shortness of breath, cough, sputum production, difficulty breathing Gastrointestinal: Denies abdominal pain, nausea, vomiting, constipation, diarrhea Genitourinary: Denies urinary symptoms including dysuria Musculoskeletal: Denies weakness, muscle aches/pain, joint aches/pain Neurological: Denies headache, numbness, tingling, focal weakness Physical Exam Physical Exam: General: Grossly A&O. NAD. Cooperative. HEENT: Atraumatic, normocephalic. EOMI Pulm: CTAB. -wheezes, -rales, -rhonchi. No respiratory distress. Cardiac: RRR, -mrg. Radial pulses intact and symmetrical. Abdominal: Nontender, nondistended, soft. heart lungs nomral. abd nontender. jaundice on R eye. mild resting tremor. mentation ok Results & Data Results & Data ([facility]) Vital Signs (Past 12 Hours) Vital Signs Temp Pulse Resp BP BP Pulse Ox 04/07/20 07:00 36.9 C 82 18 159/83 H 96 04/06/20 23:17 37.2 C 85 14 156/80 H 96 (1) Left tibial fracture Encounter type: subsequent encounter Fracture alignment: nondisplaced Fracture healing: with routine healing Fracture type: closed Tibia location: distal (2) Alcoholic hepatitis Ascites presence: with ascites Qualified Code(s): K70.11 - Alcoholic hepatitis with ascites (3) Cirrhosis Ascites presence: with ascites Hepatic cirrhosis type: alcoholic cirrhosis Qualified Code(s): K70.31 - Alcoholic cirrhosis of liver with ascites
--- NOTE | 2020-04-07 11:02 | Communication Note ---
Date of Service: April 07, 2020 Patient was not in his room at the time of rounding. Chart reviewed. His Lille score today was 0.08 on day #7 of corticosteroid use. This score is consistent with a survival rate of 85% at 6 months. Balta's today at 42.20. Bilirubin did not improve with use of Methylprednisolone. Therefore, recommend discontinuation of steroids. Patient will need outpatient hepatology evaluation.
[2020-04-07 11:48] LABS: INR 1.8 (0.9-1.1); Prothrombin Time 18.7 Seconds (9.0-12.0)
[2020-04-07 12:18] LABS: Albumin Globulin Ratio 0.7 (0.9-2); Albumin Level 3.2 gm/dl (3.4-5.0); BUN Creatinine Ratio 12.8 (10-20); Calcium 8.5 mg/dl (8.5-10.1); Creatinine Clr Calc Pharmacy 133.1 ml/min; Est GFR (African American) 122.6; Est GFR (Non-African American) 105.8; Globulin 4.7 gm/dl (2.5-4.0); Potassium 3.7 mmol/L (3.5-5.1); Total Protein 7.9 gm/dl (6.4-8.2)
--- NOTE | 2020-04-07 19:05 | Discharge Summary ---
Date of Service April 07, 2020 Admission HPI Per Admitting Provider She has a history of substance abuse and alcoholism. He presents with increasing bilateral lower extremity swelling and concerns for alcohol withdrawal. He was discharged from our facility January 13 after an episode of alcohol withdrawal. Patient reportedly was clean for a few weeks but then twisted his ankle and due to the pain of his ankle began drinking alcohol again. He drinks up to a fifth or more of vodka a day typically only going 3 to 4 hours before having shakes and having to drink more vodka. Reportedly he was urged to come into the hospital due to the massive lower extremity swelling by his significant other. In the ER he did have a ultrasound negative for DVT. His labs are significantly abnormal with a T bili of 10 and INR of 1.7 and AST of 200 subsequently his discriminant function is significantly elevated conversation was had to start methylprednisolone for alcoholic hepatitis Principal Diagnosis alcoholic hepatitis cirrhosis Discharge Exam gen aaox3 pleasant nad heent nc at mmm breathing unlabored no accessory muscles good effort skin no rashes no pallor but (+) icterus. Discharge Data Allergies Allergy/AdvReac Type Severity Reaction Status Date / Time naloxone AdvReac Unknown Verified 03/31/20 14:08 Consultations 03/31/20 14:15 ED Decision to Admit Stat 03/31/20 18:51 Consult Gastroenterology Routine Ordered Studies 03/31/20 11:42 US venous doppler LE LT Stat 03/31/20 18:47 US liver Routine 03/31/20 19:03 US abdomen ltd ascites Routine Hospital Course (1) Alcoholic hepatitis: Severe acute liver failure 2nd to heavy alcohol abuse. - on steroids for a week without statistically significant benefit - stopped by GI - INR still high but stable/slight downtrend. same w bilirubin - safe for home - cautiously. extensively outlined measures to not harm liver further - close outpt f/u and serial labs (2) Lower extremity edema: Likely due to advancing liver disease. Echo on 04/02 showed EF 65-70%. ambulation should help. not worse. (3) Hyperammonemia: Noted on 04/01 with NH3 of 80. - lactulose 20g daily - mentation appears clear (4) Cirrhosis: Alcoholic cirrhosis with superimposed acute liver failure / alcoholic hepatitis. HCV Ab was positive, but RNA is negative. He likely cleared the infection. - Prognosis is guarded. understands the need for EtOH cessation (5) Left tibial fracture: X-rays obtained of left foot and left ankle on 04/01 which showed evidence of healing, non-displaced left distal tibia fracture. - appears to be healing well, no significant pain. did discuss that steroids could possibly impede bone healing but: -fulminant liver failure would be of more terminal consequence than tibia fx -not really having much of any significant pain w walking -fracture appears well aligned and healing already on imaging walking well no significant problems with this at this time (6) Thrombocytopenia: 2nd to liver disease. - Monitor (7) Alcohol abuse: Needs 100% abstinence. - appears past withdrawal - Thiamine/folic acid supplementation (8) Coagulopathy: 2nd to cirrhosis and acute liver faliure. - Did give vitamin K x 1 (9) DVT prophylaxis: Lovenox 40 mg SQ daily - Despite high INR, anti-coagulant factors (ie Protein C & S) are also depleted, so his VTE risk is not low as if he were on anticoagulation. Total Time Total Time Spent Total Time Spent (In Minutes): >30 Discharge Plan Discharge Items Patient Disposition: Home - Self-Care Reason For Visit: ALCOHOL WITHDRAWAL Discharge Diagnosis: alcohol withdrawal resolved acute alcoholic hepatitis stable cirrhosis (see below) Activity: Resume your previous activity Non-emergency contact: Primary Care Provider Call non-emergency contact if: you have any medication questions and your symptoms worsen Follow-up/Referrals: Zoltan Okeefe [Primary Care Provider] - Diet: Regular Addtl Attending Provider Instructions: alcohol withdrawal -fortunately this has resolved acute alcoholic hepatitis, cirrhosis -the alcoholic hepatitis is the severe acute inflammation of your liver from drinking recently; the cirrhosis is the permanent damage/scarring from prior alcohol use, hep C, etc -from the standpoint of the alcoholic hepatitis - we had you on steroids for a week without any significant improvement - so there's not really any benefit to continuing that - however, your liver numbers have stabilized in a way that looks like things should hopefully slowly improve from here. as you follow up with Dr Okeefe, he'll be repeating labs (PT/INR, CMP) probably about once a week or so (more or less - depending on the rate of change and the overall progress) -- if things continue to slowly improve then great; if not then he'll guide you from there -from the standpoint of the cirrhosis, we'll just need to follow how well your numbers improve as the hepatitis resolves. once things have been steady without change for a few weeks, that will show us where you're truly "at" with the severity of the cirrhosis. however, as we discussed, the liver is a pretty remarkable organ - you can beat it to an inch of its life and if you don't kill it, it can grow back. there's just enough your labs are showing me to have optimism that with time this can improve -critical to both, however, is that you don't injure your liver any more -it might sound dramatic, but things are tenuous enough right now that even one drink could put you over the edge -common over the counter medications are also heavily metabolized by the liver. i would have you look at tylenol (acetaminophen) like it is poison. even anti-inflammatories are heavily metabolized by the liver -- so if you have to take something for pain, there's not really a safe option -- in that respect something like 200mg of ibuprofen (1 OTC pill) once, with no repeated dose for days, is reasonably safe, but anything beyond even that makes me worry -as it relates to the addictions, as we discussed, the alcohol is going to be immediately damaging to your liver. narcotics, while not as directly damaging to the liver, are mostly processed by the liver. so if you were to take any of those, you would probably process them much slower than you normally do and the dose would probably hit much harder than you expect. to that end, your risk of dying of overdose would be way, way higher than on a normal day. also, as we discussed, it's pretty impossible to know what you're actually getting vs what it might be cut with - and so there can easily be liver toxic substances even if you don't realize they're there. tibial fracture -you have a small, stable, healing appearing fracture of the bottom of your tibia. as long as you don't overdo things dramatically i would expect it to heal without further intervention. walking like you've been doing should be fine -- more than that for now i'd recommend against; over the next 4-6 weeks you can gradually get back to activity as normal as long as you're not seeing any increase in pain. hep C -to the best i can interpret, your labs suggest that you had hep C but might have cleared it on your own. that would be great since it would require no treatment. given how critical it would be to get rid of hep C if you did have it, i'd ask that Dr Okeefe re-screen you sometime in the next few weeks with the labwork that you'll be getting anyway, so that we can be sure it wasn't a false reading on the labtest anxiety -work as best you can to coping skills and stress management skills. when people self-medicate for anxiety (or pain) with things like alcohol, it's totally understandable but unfortunately almost always ends up in a path of self-destruction. you're a good dude, and we want you to do well. working on the anxiety (ideally getting hooked up with a good counsellor) and working on other skills for stress management would be really helpful in getting away from a need to self-medicate. take care of yourself!! Stand-Alone Forms: [facility], Smoking Cessation Medications and DC Order Prescriptions: New thiamine HCl (vitamin B1) 100 mg tablet 100 mg PO DAILY Qty: 30 RF: 2 folic acid 1 mg tablet 1 mg PO DAILY Qty: 30 RF: 2 Continued buprenorphine HCl 8 mg Tablet, Sublingual 12 mg SUBLINGUAL DAILY RF: 0 Discharge Orders: Discharge Order (Routine); Ordered 04/07/20 Ordered By: Fernando Perry/Other Patient Handouts: Understanding the Disease of Addiction, Alcoholism Resources Admission Data Admit Date/Time: 03/31/20 15:58 Attending Provider: Fernando Main Admit Provider: Guero Moreno Primary Care Provider: Zoltan Okeefe Other Providers: Vinay Perez ; Guero Moreno ; Sim Monzon ; Hero Mcgovern Other Interventions: Discharge Summary Assessment (RN) Last Done: 04/07/20 14:03 Coding Level of Care Code D/C Day Management >30 mins Diagnoses Alcoholic hepatitis K70.11 Ascites presence: with ascites Lower extremity edema R60.0 Hyperammonemia E72.20 Cirrhosis K70.31 Hepatic cirrhosis type: alcoholic cirrhosis Ascites presence: with ascites Left tibial fracture S82.202A Encounter type: subsequent encounter Tibia location: distal Fracture type: closed Fracture alignment: nondisplaced Fracture healing: with routine healing Thrombocytopenia D69.6 Alcohol abuse F10.10 Coagulopathy D68.9 DVT prophylaxis Z29.9
== END 2020-04-07 14:31 | disposition home or self-care (01) | DRG 433 ==
LOC: ED 10:36 → 2S 15:58 → SUATTDRO 15:58 → 2S 17:57 → 3N 04-02 17:54

== ENCOUNTER 2020-06-11 22:58 | Inpatient (IN) ==
[2020-06-11] MEDS ORDERED: SODIUM CHLORIDE 0.9% 1000ML 1,000 ML IV ONE (23:36)
--- NOTE | 2020-06-11 23:59 | Emergency Department Note ---
History of Present Illness General Chief complaint: Weakness Stated complaint: WEAKNESS Time Seen by Provider: 06/11/20 23:20 Source: patient Mode of arrival: ambulatory Limitations: no limitations History of Present Illness Provider Complaint: + generalized weakness Onset (ago): hour(s) 2 Duration: + constant Location: + generalized Migration: + none Severity: moderate Current Pain Intensity: 0 Relieved By: + none Exacerbated By: + movement Context: + other (Hepatitis C, cirrhosis, alcoholic hepatitis) Associated symptoms: + denies other symptoms This 39-year-old male patient with significant past medical history of cirrhosis, alcoholic hepatitis, hepatitis C, substance abuse, alcoholism presents to the emergency department today via ambulance for evaluation of generalized weakness. The patient states he believes he had an anxiety attack which caused him to fall over. He states he got up to go to the bathroom and order food, but while in the bathroom was having difficulty moving and felt generally weak. He states this occurred approximately 2 hours ago. He states he is generally feeling uncomfortable at this time and thirsty, as his primary complaints. He questions whether he feels lightheaded, but does indicate he still feels generally weak. He denies any fall or injury. No chest pain, dyspnea, fever, nausea, vomiting, abdominal pain. He has been feeling somewhat constipated the last few days. Last bowel movement was 2 hours ago. No diarrhea. There was some blood in his stool with his bowel movement which he attributes to a probable hemorrhoid. No bright red blood or melena. The patient was seen in the emergency department and subsequently admitted in March where he had GI consult. He was treated for hyperammonemia, cirrhosis, edema, and alcoholism at that time. The patient states he had outpatient appointment scheduled, but never went due to transportation problems. He is not currently on any medications for his cirrhosis, hepatitis, but does take buprenorphine. He denies any recent fever or illness. He believes jaundice may have began approximately 1 week ago around [place] time, though is unclear on the timeframe. Home Medications Medication Instructions Recorded Confirmed Type buprenorphine HCl 12 mg SUBLINGUAL DAILY 06/06/19 06/11/20 History Allergies Allergy/AdvReac Type Severity Reaction Status Date / Time naloxone AdvReac Intermediate SEE COMMENT Verified 06/11/20 23:36 Past Med/Surg History Medical History Alcohol withdrawal Alcoholic hepatitis Cirrhosis Coagulopathy Heart valve regurgitation Hepatitis C Hyperammonemia Leg swelling Surgical History No pertinent past surgical history Social History Smoking Status: Current every day smoker Tobacco Type: Cigarettes Cigarettes Per Day: 1/2 pack or less; Second Hand Exposure: Yes; Hx Alcohol Use: Yes Alcohol type: hard liquor Alcohol Intake Frequency Comment: States quit in March after most recent hospital discharge Hx Substance Use: Yes Preferred Language: Urdu Communication Ability: Effective [employer] Safety Consultant Required: No Beliefs That Will Affect Care: None Current Living Situation: Family and Significant Other Feels Safe at Home: Yes Assistive Devices: None Review of Systems A total of 10 systems reviewed and were otherwise negative Physical Exam Vital Signs Vital Signs - 24 hr 06/11/20 22:46 06/11/20 23:06 06/11/20 23:11 Temperature 36.6 C Temperature Source Oral Pulse Rate 94 H 110 H 120 H Pulse Rate from SpO2 Sensor 105 H 102 H Respiratory Rate 20 19 18 Respiratory Effort / Characteristics Non-Labored Spontaneous Blood Pressure 137/82 137/82 Blood Pressure Mean 100 95 Blood Pressure Position Lying Pulse Oximetry 98 97 100 Oxygen Delivery Method Room Air Room Air Sepsis Recent Fever Within 48 Hours No Sepsis New/Unexplained Change in Mental Status No Sepsis Action Taken by Nursing No Action Required 06/11/20 23:30 06/11/20 23:31 06/12/20 00:00 Temperature Temperature Source Pulse Rate 96 H 95 H Pulse Rate from SpO2 Sensor 96 H 95 H Respiratory Rate 18 13 Respiratory Effort / Characteristics Blood Pressure 107/59 L 115/58 L Blood Pressure Mean 75 74 Blood Pressure Position Pulse Oximetry 97 97 96 Oxygen Delivery Method Room Air Sepsis Recent Fever Within 48 Hours Sepsis New/Unexplained Change in Mental Status Sepsis Action Taken by Nursing 06/12/20 00:30 06/12/20 01:00 06/12/20 01:31 Temperature Temperature Source Pulse Rate 91 H 93 H 98 H Pulse Rate from SpO2 Sensor 92 H 93 H 97 H Respiratory Rate 15 17 25 H Respiratory Effort / Characteristics Blood Pressure 103/56 L 109/56 L 107/61 Blood Pressure Mean 64 66 85 Blood Pressure Position Pulse Oximetry 95 97 95 Oxygen Delivery Method Sepsis Recent Fever Within 48 Hours Sepsis New/Unexplained Change in Mental Status Sepsis Action Taken by Nursing 06/12/20 02:00 06/12/20 02:01 06/12/20 02:30 Temperature Temperature Source Pulse Rate 94 H 95 H 94 H Pulse Rate from SpO2 Sensor 95 H 95 H 94 H Respiratory Rate 21 25 H 15 Respiratory Effort / Characteristics Blood Pressure 92/47 L 88/48 L Blood Pressure Mean 63 72 Blood Pressure Position Pulse Oximetry 93 93 92 Oxygen Delivery Method Sepsis Recent Fever Within 48 Hours Sepsis New/Unexplained Change in Mental Status Sepsis Action Taken by Nursing VITALS: Vitals are noted on the nurse's note and reviewed by myself. Vital signs stable. GENERAL: This is a 39-year-old white male, in no acute distress, nondiaphoretic, well-developed well-nourished. SKIN: The skin was jaundice, without rashes, erythema, or bruising. There is no tenting of the skin. Capillary refill less than 2 seconds. HEAD: Normocephalic atraumatic. EARS: External auditory canals clear, tympanic membranes pearly sheldon without erythema or effusion bilaterally. No hemotympanum. EYES: Pupils equal round and reactive to light and accommodation. Conjunctivae without injection, sclerae icteric. Extraocular movements intact. NOSE: Patent, turbinates without inflammation or discharge. No sinus tende rness. MOUTH: Mucous membranes moist. Tonsils are not enlarged. Pharynx without erythema or exudate. Uvula midline. Airway patent. Tongue does not deviate. NECK: Supple without nuchal rigidity. No lymphadenopathy. No thyromegaly. Cervical spine is nontender. No JVD. HEART: Regular rate and rhythm without murmurs gallops or rubs. LUNGS: Clear to auscultation bilaterally without wheezes, rales or rhonchi. No retractions or accessory muscle use. ABDOMEN: Positive bowel sounds x 4. Normal tympanic percussion. Abdomen is distended, nontender, without obvious masses or organomegaly. No guarding or rebound tenderness. RECTAL - No rectal fissures. No skin tags appreciated. No active bleeding. A sterile, water-soluble lubricant was applied to the examiner's finger prior to internal exam. No rectal vault tenderness. No rectal masses. No fecal impaction. Stool Guaiac Test: Hemoccult Positive. PSYCH - A&Ox3 and cooperates fully with examiner. Pt is very pleasant and interacts well with examiner. MUSCULOSKELETAL: No muscle atrophy, erythema, or edema noted. Full range of motion without joint tenderness in all extremities. No tenderness to palpation. Strength 5/5 throughout. NEURO: Patient was alert and oriented to person place and time. No focal neurological deficits. Course Course The patient was seen and evaluated as above. An order was placed for continuous cardiac monitoring. The monitor shows a normal sinus rhythm at a rate of 94 bpm. I discussed case with my attending physician. Rectal examination performed. IV access obtained, labs drawn. Patient medicated with IV fluids and Ativan. Imaging performed and reviewed by myself as noted. Labs reviewed by myself. I discussed the findings with the patient at bedside. I discussed the case with Dr. Cantrell. She requested we speak with GI regarding admitting this patient. I discussed the case with Dr. Rae. He advised that the patient may be admitted to medicine for acute liver failure, however would ultimately need tertiary care and hepatology. I spoke with the patient regarding potential need for transfer. He was agreeable. Dr. Elizondo did speak with the transfer center and ultimately, Dr. Piper at [facility] with the transplant team who recommended the patient be admitted to internal medicine service here for Acute liver failure treatment. May be transferred to medicine service at [facility] if our admitting team unable to manage Acute liver failure. Notified by transfer center there are no transfer beds available at [facility] at this time. Again discussed the case with Dr. Cantrell. She did agree to see and evaluate the patient for admission to our facility. Administered Medications Discontinued Medications Sodium Chloride (Nss 1000ml) 1,000 mls @ 999 mls/hr IV .[id number] ONE Stop: 06/12/20 00:36 Last Infusion: 06/12/20 01:11 Dose: 0 mls/hr Documented by: [id number] Admin: 06/12/20 00:00 Dose: 999 mls/hr Documented by: [id number] Lorazepam (Ativan) 1 mg in 2 mls @ 2 mls/min IV NOW STA Stop: 06/12/20 00:02 Last Admin: 06/12/20 00:24 Dose: 2 mls/min Documented by: [id number] Medical Decision Making Differential Diagnosis + acute myocardial infarction, + anemia, + hypoglycemia, + hypothyroidism, + rhabdomyolysis, + sepsis, + dehydration, + UTI, + ACS, + dysrhythmia, + orthostasis, + hypoglycemia, + hyperglycemia, + electrolyte abnormalities, + intracerebral event, + toxicologic and + neurologic In addition to the above, cirrhosis, GI bleed, hyperammonemia, liver failure, malignancy, among others considered Medical Records Attestation: I reviewed the patient's medical records. Home Medications Current Medication List: was personally reviewed by me Laboratory Data Attestation: I reviewed the patient's lab results. Leukocytosis of 13,000. There is an anemia with a hemoglobin of 10.7 and hematocrit of 29.1. Platelet count low at 108,000, increased from previous. INR elevated 2.4. This is increased from previous as well. Creatinine unable to be obtained due to icteric blood sample. Patient is hyponatremic at 124. Magnesium elevated at 2.5. Total bilirubin significantly elevated at 30.5. AST 58, ALT 40. Troponin negative. Albumin low at 2.4. TSH 1.95. Ammonia less than 10. Hemoccult positive. Alcohol negative. Covid screen negative. Result diagrams: 06/11/20 23:49 06/11/20 23:49 Lab Results 06/11/20 06/11/20 06/11/20 Range/Units 23:49 23:49 23:49 WBC 13.57 H (4.8-10.8) K/uL RBC 2.60 L (4.7-6.1) M/uL Hgb 10.6 L (14.0-18.0) g/dL Hct 29.1 L (42-52) % MCV 111.9 H (80-100) fL MCH 40.8 H (25-34) pg MCHC 36.4 H (32-36) g/dL RDW Std Deviation 55.5 H (36.4-46.3) fL RDW Coeff of Munir 13.9 (11.5-14.5) % Plt Count 108 L (130-400) K/uL MPV 8.3 (7.4-10.4) fL Immature Gran % (Auto) 0.7 % Neut % (Auto) 73.1 % Lymph % (Auto) 10.3 % Sierra % (Auto) 15.7 % Eos % (Auto) 0.1 % Baso % (Auto) 0.1 % Neut # (Auto) 9.92 H (1.4-6.5) K/uL Lymph # (Auto) 1.40 (1.2-3.4) K/uL Sierra # (Auto) 2.13 H (0.11-0.59) K/uL Eos # (Auto) 0.02 (0-0.5) K/uL Baso # (Auto) 0.01 (0-0.2) K/uL Immature Gran # (Auto) 0.09 H (0.00-0.02) K/uL Hypersegmented Neuts 1+ Polychromasia 1+ Macrocytosis Present Echinocytes 1+ PT 23.8 H (9.0-12.0) Seconds INR 2.4 H (0.9-1.1) Sodium 124 L (136-145) mmol/L Potassium 3.6 (3.5-5.1) mmol/L Chloride 85 L (98-107) mmol/L Carbon Dioxide 27 (21-32) mmol/L Anion Gap 12.0 H (3-11) BUN 28 H (7-18) mg/dl Creatinine (0.6-1.4) mg/dl Est Cr Clr Drug Dosing ml/min Est GFR ( Amer) Est GFR (Non-Af Amer) BUN/Creatinine Ratio (10-20) Glucose 122 H (70-99) mg/dl Calcium 8.5 (8.5-10.1) mg/dl Phosphorus 3.6 (2.5-4.9) mg/dl Magnesium 2.5 H (1.8-2.4) mg/dl Total Bilirubin 30.5 H (0.2-1) mg/dl AST 58 H (15-37) U/L ALT 40 (12-78) U/L Alkaline Phosphatase 42 L (45-117) U/L Ammonia (11-32) umol/L Troponin I < 0.015 (0-0.045) ng/ml Total Protein (6.4-8.2) gm/dl Albumin 2.4 L (3.4-5.0) gm/dl Globulin (2.5-4.0) gm/dl Albumin/Globulin Ratio (0.9-2) TSH 1.950 (0.300-4.500) uIu/ml POC Stool Occult Blood (Negative) Ethyl Alcohol mg/dL (0-3) mg/dl SARS-CoV-2 Ag (Rapid) (Negative) 06/11/20 06/11/20 06/12/20 Range/Units 23:49 23:49 Unknown WBC (4.8-10.8) K/uL RBC (4.7-6.1) M/uL Hgb (14.0-18.0) g/dL Hct (42-52) % MCV (80-100) fL MCH (25-34) pg MCHC (32-36) g/dL RDW Std Deviation (36.4-46.3) fL RDW Coeff of Munir (11.5-14.5) % Plt Count (130-400) K/uL MPV (7.4-10.4) fL Immature Gran % (Auto) % Neut % (Auto) % Lymph % (Auto) % Sierra % (Auto) % Eos % (Auto) % Baso % (Auto) % Neut # (Auto) (1.4-6.5) K/uL Lymph # (Auto) (1.2-3.4) K/uL Sierra # (Auto) (0.11-0.59) K/uL Eos # (Auto) (0-0.5) K/uL Baso # (Auto) (0-0.2) K/uL Immature Gran # (Auto) (0.00-0.02) K/uL Hypersegmented Neuts Polychromasia Macrocytosis Echinocytes PT (9.0-12.0) Seconds INR (0.9-1.1) Sodium (136-145) mmol/L Potassium (3.5-5.1) mmol/L Chloride (98-107) mmol/L Carbon Dioxide (21-32) mmol/L Anion Gap (3-11) BUN (7-18) mg/dl Creatinine (0.6-1.4) mg/dl Est Cr Clr Drug Dosing ml/min Est GFR ( Amer) Est GFR (Non-Af Amer) BUN/Creatinine Ratio (10-20) Glucose (70-99) mg/dl Calcium (8.5-10.1) mg/dl Phosphorus (2.5-4.9) mg/dl Magnesium (1.8-2.4) mg/dl Total Bilirubin (0.2-1) mg/dl AST (15-37) U/L ALT (12-78) U/L Alkaline Phosphatase (45-117) U/L Ammonia < 10.0 L (11-32) umol/L Troponin I (0-0.045) ng/ml Total Protein (6.4-8.2) gm/dl Albumin (3.4-5.0) gm/dl Globulin (2.5-4.0) gm/dl Albumin/Globulin Ratio (0.9-2) TSH (0.300-4.500) uIu/ml POC Stool Occult Blood Positive A (Negative) Ethyl Alcohol mg/dL < 3.0 (0-3) mg/dl SARS-CoV-2 Ag (Rapid) (Negative) 06/12/20 Range/Units Unknown WBC (4.8-10.8) K/uL RBC (4.7-6.1) M/uL Hgb (14.0-18.0) g/dL Hct (42-52) % MCV (80-100) fL MCH (25-34) pg MCHC (32-36) g/dL RDW Std Deviation (36.4-46.3) fL RDW Coeff of Munir (11.5-14.5) % Plt Count (130-400) K/uL MPV (7.4-10.4) fL Immature Gran % (Auto) % Neut % (Auto) % Lymph % (Auto) % Sierra % (Auto) % Eos % (Auto) % Baso % (Auto) % Neut # (Auto) (1.4-6.5) K/uL Lymph # (Auto) (1.2-3.4) K/uL Sierra # (Auto) (0.11-0.59) K/uL Eos # (Auto) (0-0.5) K/uL Baso # (Auto) (0-0.2) K/uL Immature Gran # (Auto) (0.00-0.02) K/uL Hypersegmented Neuts Polychromasia Macrocytosis Echinocytes PT (9.0-12.0) Seconds INR (0.9-1.1) Sodium (136-145) mmol/L Potassium (3.5-5.1) mmol/L Chloride (98-107) mmol/L Carbon Dioxide (21-32) mmol/L Anion Gap (3-11) BUN (7-18) mg/dl Creatinine (0.6-1.4) mg/dl Est Cr Clr Drug Dosing ml/min Est GFR ( Amer) Est GFR (Non-Af Amer) BUN/Creatinine Ratio (10-20) Glucose (70-99) mg/dl Calcium (8.5-10.1) mg/dl Phosphorus (2.5-4.9) mg/dl Magnesium (1.8-2.4) mg/dl Total Bilirubin (0.2-1) mg/dl AST (15-37) U/L ALT (12-78) U/L Alkaline Phosphatase (45-117) U/L Ammonia (11-32) umol/L Troponin I (0-0.045) ng/ml Total Protein (6.4-8.2) gm/dl Albumin (3.4-5.0) gm/dl Globulin (2.5-4.0) gm/dl Albumin/Globulin Ratio (0.9-2) TSH (0.300-4.500) uIu/ml POC Stool Occult Blood (Negative) Ethyl Alcohol mg/dL (0-3) mg/dl SARS-CoV-2 Ag (Rapid) Negative (Negative) Imaging Data My Impression: Chest x-ray, reviewed by myself: Right-sided pleural effusion. ECG Data Attestation: I personally reviewed and interpreted this ECG as follows: Indication: weakness Rate (beats per minute): 96 Rhythm: normal sinus Findings: + T-wave inversion (Septal) and + prolonged QT; no ST depression and no ST elevation Comparison ECG Date: from (01/14/2020, 03/31/2020) Change: the following changes noted (QT has lengthened, T wave inversion now present in septal leads) Blood Pressure Blood Pressure Findings: Elevated blood pressure Blood Pressure Disposition: elevated BP felt to be situational MDM Narrative This 39-year-old male patient presents to the emergency department today for evaluation of weakness. Symptoms began this evening, shortly prior to arrival in the emergency department. The patient was concerned for an anxiety attack as the contributing factor. He has been experiencing increasing jaundice over the past week. He did have a presyncopal episode and has been generally feeling weak this evening. He is not eating or drinking normally over the past week. He denies any pain or headache. He has had some constipation over the past few days, but has been moving his bowels. He did note some blood with his most recent bowel movement just prior to arrival, but states this was "normal". Labs and history concerning for acute liver failure. The patient does have a history of alcoholic hepatitis and cirrhosis. He did quit drinking approximately 2 months ago at, after his most recent hospital admission. Meld score 33. Given the acute change in his bilirubin and INR, there was concern that he would need to be further managed by hepatology. [facility] for the acute liver failure, but were requested to consult with GI. [facility] gastroenterology advised that there is not much they are able to do at this point in addition to medicine treating the acute liver failure. They did recommend consult with hepatology. We did consult with the service surgery team at [facility] in [place] who recommended treatment for the acute liver failure at this time. They have tried to contact the patient multiple times to establish outpatient follow-up, the patient has not answered the phone. He states he was having trouble with his phone and it was turned off when they called. Ultimately at this time, the patient does appear to be hemodynamically stable. He will be admitted to the [facility] service. Case management will need to be involved to help establish outpatient follow-up and ensure the patient goes to his appointments. I did discuss with him the importance of following up at his appointments with hepatology regarding the need for a liver transplant. The patient verbalizes understanding. The chart was completed utilizing [employer] Speech voice recognition software. Grammatical errors, random word insertions, pronoun errors, and incomplete sentences are an occasional consequence of this system due to software limitations, ambient noise, and hardware issues. Any formal questions or concerns about the content, text, or information contained within the body of this dictation should be directly addressed to the provider for clarification. Impression & Plan Alcoholic hepatitis, Elevated INR, Hyperbilirubinemia, Cirrhosis Discharge Plan Visit Data Chief Complaint: Weakness Stated Complaint: WEAKNESS ED Provider: Belinda Elizondo ED Midlevel Provider: Daylin Lanza Discharge Problem: Alcoholic hepatitis, Elevated INR, Hyperbilirubinemia, Cirrhosis Patient Disposition: Admitted As Inpatient Forms Stand Alone Forms: My [facility] [employer] Prescriptions Prescriptions: No Action buprenorphine HCl 8 mg Tablet, Sublingual 12 mg SUBLINGUAL DAILY RF: 0 Referrals Referrals: PCP,NO [Primary Care Provider] - Discharge Problem: Alcoholic hepatitis Qualifiers: Ascites presence: unspecified Qualified Code(s): K70.10 - Alcoholic hepatitis without ascites Cirrhosis Qualifiers: Hepatic cirrhosis type: alcoholic cirrhosis Ascites presence: unspecified Qualified Code(s): K70.30 - Alcoholic cirrhosis of liver without ascites
[2020-06-12] MEDS ORDERED: LORazepam 1 MG/2 ML VIAL IV STA (00:01)
[2020-06-12 00:06] LABS: Basophils # (auto) 0.01 K/uL (0-0.2); Basophils % (auto) 0.1 %; Eosinophils # (auto) 0.02 K/uL (0-0.5); Eosinophils % (auto) 0.1 %; Hematocrit (blood only) 29.1 % (42-52); Hemoglobin 10.6 g/dL (14.0-18.0); Immature Granulocytes # (auto) 0.09 K/uL (0.00-0.02); Immature Granulocytes % (auto) 0.7 %; Lymphocytes % (auto) 10.3 %; Mean Corpuscular Hemoglobin 40.8 pg (25-34); Mean Corpuscular Hgb Conc 36.4 g/dL (32-36); Mean Corpuscular Volume 111.9 fL (80-100); Mean Platelet Volume 8.3 fL (7.4-10.4); Monocytes # (auto) 2.13 K/uL (0.11-0.59); Monocytes % (auto) 15.7 %; Neutrophils # (auto) 9.92 K/uL (1.4-6.5); Neutrophils % (auto) 73.1 %; Platelet Count 108 K/uL (130-400); RDW Coefficient of Variation 13.9 % (11.5-14.5); RDW Standard Deviation 55.5 fL (36.4-46.3); White Blood Count 13.57 K/uL (4.8-10.8)
[2020-06-12 00:26] LABS: INR 2.4 (0.9-1.1); Prothrombin Time 23.8 Seconds (9.0-12.0)
[2020-06-12 00:27] LABS: Alanine Aminotransferase 40 U/L (12-78); Albumin Level 2.4 gm/dl (3.4-5.0); Aspartate Aminotransferase 58 U/L (15-37); Blood Urea Nitrogen 28 mg/dl (7-18); Calcium 8.5 mg/dl (8.5-10.1); Carbon Dioxide 27 mmol/L (21-32); Chloride 85 mmol/L (98-107); Glucose 122 mg/dl (70-99); Magnesium 2.5 mg/dl (1.8-2.4); Potassium 3.6 mmol/L (3.5-5.1); Sodium 124 mmol/L (136-145)
[2020-06-12 00:36] LABS: Alkaline Phosphatase 42 U/L (45-117); Bilirubin,Total 30.5 mg/dl (0.2-1); Phosphorus 3.6 mg/dl (2.5-4.9); Troponin I < 0.015 ng/ml (0-0.045)
[2020-06-12 01:04] LABS: Echinocytes 1+; Macrocytosis Present; Polychromasia 1+
--- NOTE | 2020-06-12 02:38 | History & Physical Report ---
Date of Service June 12, 2020 Assessment & Plan (1) Acute hepatic failure: Patient is a 39-year-old male with a past medical history of cirrhosis, alcoholic hepatitis, hepatitis C, substance abuse disorder on buprenorphine, alcoholism who presents this evening for evaluation of generalized weakness. #Acute hepatic failure secondary to cirrhosis from chronic alcohol abuse, complicated by elevated INR/coagulopathy, bilateral lower extremity edema, jaundice, and leukocytosis Patient has previously been admitted and evaluated for similar symptoms, he was supposed to have outpatient follow-up with gastroenterology however did not attend the appointment. He presents this evening after about a week of jaundiced, with increased weakness. On physical exam he is grossly jaundiced with a distended abdomen, laboratory studies are as expected for somebody in acute hepatic failure. Despite all of the patient's chronic problems he appears stable. We made extensive attempts to provide the patient with education and explained to him the absolute importance of outpatient follow-up. We attempted to transfer the patient however there were no beds and no transport available for either [facility] or [facility]. -Admit to [facility] -Albumin x2 bottles 25% -Protonix 40 mg IV twice daily -Consult GI -Consider paracentesis to rule out SBP -Will hold off on diuretics in the event GI wishes to pursue paracentesis -Blood and urine cultures pending -Trend daily CBC -Monitor for signs and symptoms of bleeding -Follow-up a.m. CMP #Abdominal ascites -GI consulted #Leukocytosis Given patient's complicated past medical history, elevated white blood cell count, risk factors, and recent symptoms of weakness he was placed on empiric ceftriaxone, narrow pending culture results. -Follow-up cultures -Empiric ceftriaxone #Jaundice/hyperbilirubinemia Related to the above, mental status intact. -Trend daily Cmp #Rectal bleed in the setting of acute hepatic failure complicated by thrombocytopenia and coagulopathy Patient describes noting some bright red blood in his stool prior to arrival to the hospital, did not describe the stool as melanotic or dark. In the hospital rectal occult blood was positive, hemoglobin on admission was 10.6, and BUN elevated. Given these findings it would be reasonable to consider the pros and cons of an upper endoscopy. -GI consulted -Follow-up a.m. CBC #Elevated INR Secondary to underlying liver disease, monitor for signs and symptoms of b leeding. #Substance abuse in remission -On buprenorphine, attempting to wean off -Reports not having a drink in over 2 months #Anxiety Patient states this is one of the main reasons he presented to the hospital, could consider outpatient follow-up with counselor versus psychiatrist -Consider outpatient mental health appointment FENa: Low-salt diet Code Status: Full code DVT PPX: Contraindicated in the setting of acute hepatic failure PT/OT: Not indicated Dispo: Carloz Cantrell MD PGY 3, FCM This chart was completed utilizing [employer] voice recognition software. Grammatical errors, random word insertions, pronoun errors, and in complete sentences are an occasional consequence of the system. Any questions or concerns about the content, text, or information contained within the body of this dictation should be addressed directly to the physician for clarification. (2) Coagulopathy: (3) Alcoholic hepatitis: (4) Hepatitis C: (5) Cirrhosis: (6) Thrombocytopenia: (7) Lower extremity edema: (8) Elevated INR: (9) Edema: (10) Substance abuse in remission: (11) Hyperbilirubinemia: (12) Jaundice: (13) Abdominal ascites: History of Present Illness Patient is a 39-year-old male with a past medical history of cirrhosis, alcoholic hepatitis, hepatitis C, substance abuse disorder on buprenorphine, alcoholism who presents this evening for evaluation of generalized weakness. The patient was in his normal state of health until approximately 2 hours ago when he had what he believed to be an anxiety attack this resulted in him falling over. He is got up to go to the bathroom and well in the bathroom experiencing worsening weakness and difficulty with movement. He notes feeling significantly uncomfortable at that time and thirsty he is unsure whether he felt lightheaded but indicates he still feels generally weak. Denying any trauma, loss of consciousness, falls, injuries, chest pain, dyspnea, fever, nausea, vomiting, abdominal pain, or other constitutional symptoms with the exception of jaundice which she believes started approximately 1 week ago around Kiran time.. Recently has endorsed increasing constipation however his last p.o. movement was 2 hours ago without diarrhea there was some blood in his stool which he attributed being secondary to hemorrhoid, his stools were not dark or melanotic per description. Of note the patient was evaluated admitted in March during which time he had a GI consult and was treated for hyperammonemia, cirrhosis, edema, and alcoholism. The patient was supposed to follow-up with GI as an outpatient, however did not keep this appointment. He is not currently on any home medications with the exception of buprenorphine. The patient presented to the emergency department via ambulance routine labs were obtained, CBC indicated a white count of 13.57 with a neutrophil predominance, hemoglobin of 10.6, platelets of 108, he does have a history of low platelets, coags demonstrating PT of 23.8 and INR of 2.4, CMP demonstrating a sodium of 124, chloride of 85, BUN of 28, glucose of 122, magnesium of 2.5, AST of 58, ALT of 40, alk phos of 42, ammonia less than 10, TSH of 1.95, stool occult blood positive, negative alcohol, Covid negative. Chest x-ray demonstrating decreased lung volumes on the right. ECG demonstrated prolonged QT without ST depressions or ST elevations. The hospital team was consulted for admission for acute hepatic failure The patient related history similar to that described above, in no acute distress, and seemed undisturbed by his chronic illness. We spent a great deal of time explaining to the patient the absolute necessity for him to obtain outpatient follow-up and that if he does not this illness will likely progress and cause him increasing harm. Ideally this patient would be transfered to a facility where transplant surgery is readily available, however we spoke to both [facility] and [facility], Dr. Piper at [facility] transplant said there were 0 beds available. After speaking with our in-house GI they recommended admitting the patient for further stabilization of his current condition and eventually discharge with outpatient follow-up with the transplant surgeon. Primary Care Provider: NO PCP Allergies Allergy/AdvReac Type Severity Reaction Status Date / Time naloxone AdvReac Intermediate SEE COMMENT Verified 06/11/20 23:36 Home Medications Medication Instructions Recorded Confirmed Type buprenorphine HCl 12 mg SUBLINGUAL DAILY 06/06/19 06/11/20 History Past Med/Surg History Medical History Alcohol withdrawal Alcoholic hepatitis Cirrhosis Coagulopathy Heart valve regurgitation Hepatitis C Hyperammonemia Leg swelling Surgical History No pertinent past surgical history Social History Smoking Status: Current every day smoker Tobacco Type: Cigarettes Cigarettes Per Day: 1/2 pack or less; Second Hand Exposure: Yes; Hx Alcohol Use: Yes Alcohol type: hard liquor Alcohol Intake Frequency Comment: States quit in March after most recent hospital discharge Hx Substance Use: Yes Preferred Language: Croatian Communication Ability: Effective Manager Change Required: No Beliefs That Will Affect Care: None Current Living Situation: Family and Significant Other Feels Safe at Home: Yes Assistive Devices: None Review of Systems Review of Systems: All systems reviewed & are unremarkable except as noted in HPI & below Physical Exam Physical Exam: General: Lying in bed in no acute distress grossly jaundiced HEENT: Normocephalic atraumatic Neck: Normal to visual inspection Cardiac: Abnormal cardiac sounds appeared as if a repeated S1 without contribution of S2, borderline tachycardic, I did not appreciate any significant murmurs rubs or gallops, 3+ pedal edema bilaterally, no calf tenderness Respiratory: Distant breath sounds bilaterally I did not appreciate any focal wheezing, rales, rhonchi, symmetrical chest expansion GI: Distended, mildly tender to palpation, bowel sounds present, ascites present, no rebound, no guarding MSK: Moves all extremities Skin: Bilateral lower extremity venous stasis ulcers Neuro: Alert and oriented x4 Psych: Calm and cooperative with the interview, question his acceptance of his current diagnosis Results & Data Results & Data ([facility]) Vital Signs (Past 12 Hours) Vital Signs Temp Pulse Resp BP Pulse Ox 06/12/20 01:00 93 H 17 109/56 L 97 06/12/20 00:30 91 H 15 103/56 L 95 06/12/20 00:00 95 H 13 115/58 L 96 06/11/20 23:31 97 06/11/20 23:30 96 H 18 107/59 L 97 06/11/20 23:11 120 H 18 100 06/11/20 23:06 110 H 19 137/82 97 06/11/20 22:46 36.6 C 94 H 20 137/82 98 Laboratory Results 06/12/20 06/12/20 06/11/20 Range/Units Unknown Unknown 23:49 WBC (4.8-10.8) K/uL RBC (4.7-6.1) M/uL Hgb (14.0-18.0) g/dL Hct (42-52) % MCV (80-100) fL MCH (25-34) pg MCHC (32-36) g/dL RDW Std Deviation (36.4-46.3) fL RDW Coeff of Munir (11.5-14.5) % Plt Count (130-400) K/uL MPV (7.4-10.4) fL Immature Gran % (Auto) % Neut % (Auto) % Lymph % (Auto) % [place] % (Auto) % Eos % (Auto) % Baso % (Auto) % Neut # (Auto) (1.4-6.5) K/uL Lymph # (Auto) (1.2-3.4) K/uL [place] # (Auto) (0.11-0.59) K/uL Eos # (Auto) (0-0.5) K/uL Baso # (Auto) (0-0.2) K/uL Immature Gran # (Auto) (0.00-0.02) K/uL Hypersegmented Neuts Polychromasia Macrocytosis Echinocytes PT (9.0-12.0) Seconds INR (0.9-1.1) Sodium (136-145) mmol/L Potassium (3.5-5.1) mmol/L Chloride (98-107) mmol/L Carbon Dioxide (21-32) mmol/L Anion Gap (3-11) BUN (7-18) mg/dl Creatinine (0.6-1.4) mg/dl Est Cr Clr Drug Dosing ml/min Est GFR ( Amer) Est GFR (Non-Af Amer) BUN/Creatinine Ratio (10-20) Glucose (70-99) mg/dl Calcium (8.5-10.1) mg/dl Phosphorus (2.5-4.9) mg/dl Magnesium (1.8-2.4) mg/dl Total Bilirubin (0.2-1) mg/dl AST (15-37) U/L ALT (12-78) U/L Alkaline Phosphatase (45-117) U/L Ammonia (11-32) umol/L Troponin I (0-0.045) ng/ml Total Protein (6.4-8.2) gm/dl Albumin (3.4-5.0) gm/dl Globulin (2.5-4.0) gm/dl Albumin/Globulin Ratio (0.9-2) TSH (0.300-4.500) uIu/ml POC Stool Occult Blood Positive A (Negative) Ethyl Alcohol mg/dL < 3.0 (0-3) mg/dl SARS-CoV-2 Ag (Rapid) Negative (Negative) 06/11/20 06/11/20 06/11/20 Range/Units 23:49 23:49 23:49 WBC (4.8-10.8) K/uL RBC (4.7-6.1) M/uL Hgb (14.0-18.0) g/dL Hct (42-52) % MCV (80-100) fL MCH (25-34) pg MCHC (32-36) g/dL RDW Std Deviation (36.4-46.3) fL RDW Coeff of Munir (11.5-14.5) % Plt Count (130-400) K/uL MPV (7.4-10.4) fL Immature Gran % (Auto) % Neut % (Auto) % Lymph % (Auto) % [place] % (Auto) % Eos % (Auto) % Baso % (Auto) % Neut # (Auto) (1.4-6.5) K/uL Lymph # (Auto) (1.2-3.4) K/uL [place] # (Auto) (0.11-0.59) K/uL Eos # (Auto) (0-0.5) K/uL Baso # (Auto) (0-0.2) K/uL Immature Gran # (Auto) (0.00-0.02) K/uL Hypersegmented Neuts Polychromasia Macrocytosis Echinocytes PT 23.8 H (9.0-12.0) Seconds INR 2.4 H (0.9-1.1) Sodium 124 L (136-145) mmol/L Potassium 3.6 (3.5-5.1) mmol/L Chloride 85 L (98-107) mmol/L Carbon Dioxide 27 (21-32) mmol/L Anion Gap 12.0 H (3-11) BUN 28 H (7-18) mg/dl Creatinine (0.6-1.4) mg/dl Est Cr Clr Drug Dosing ml/min Est GFR ( Amer) Est GFR (Non-Af Amer) BUN/Creatinine Ratio (10-20) Glucose 122 H (70-99) mg/dl Calcium 8.5 (8.5-10.1) mg/dl Phosphorus 3.6 (2.5-4.9) mg/dl Magnesium 2.5 H (1.8-2.4) mg/dl Total Bilirubin 30.5 H (0.2-1) mg/dl AST 58 H (15-37) U/L ALT 40 (12-78) U/L Alkaline Phosphatase 42 L (45-117) U/L Ammonia < 10.0 L (11-32) umol/L Troponin I < 0.015 (0-0.045) ng/ml Total Protein (6.4-8.2) gm/dl Albumin 2.4 L (3.4-5.0) gm/dl Globulin (2.5-4.0) gm/dl Albumin/Globulin Ratio (0.9-2) TSH 1.950 (0.300-4.500) uIu/ml POC Stool Occult Blood (Negative) Ethyl Alcohol mg/dL (0-3) mg/dl SARS-CoV-2 Ag (Rapid) (Negative) 06/11/20 Range/Units 23:49 WBC 13.57 H (4.8-10.8) K/uL RBC 2.60 L (4.7-6.1) M/uL Hgb 10.6 L (14.0-18.0) g/dL Hct 29.1 L (42-52) % MCV 111.9 H (80-100) fL MCH 40.8 H (25-34) pg MCHC 36.4 H (32-36) g/dL RDW Std Deviation 55.5 H (36.4-46.3) fL RDW Coeff of Munir 13.9 (11.5-14.5) % Plt Count 108 L (130-400) K/uL MPV 8.3 (7.4-10.4) fL Immature Gran % (Auto) 0.7 % Neut % (Auto) 73.1 % Lymph % (Auto) 10.3 % [place] % (Auto) 15.7 % Eos % (Auto) 0.1 % Baso % (Auto) 0.1 % Neut # (Auto) 9.92 H (1.4-6.5) K/uL Lymph # (Auto) 1.40 (1.2-3.4) K/uL [place] # (Auto) 2.13 H (0.11-0.59) K/uL Eos # (Auto) 0.02 (0-0.5) K/uL Baso # (Auto) 0.01 (0-0.2) K/uL Immature Gran # (Auto) 0.09 H (0.00-0.02) K/uL Hypersegmented Neuts 1+ Polychromasia 1+ Macrocytosis Present Echinocytes 1+ PT (9.0-12.0) Seconds INR (0.9-1.1) Sodium (136-145) mmol/L Potassium (3.5-5.1) mmol/L Chloride (98-107) mmol/L Carbon Dioxide (21-32) mmol/L Anion Gap (3-11) BUN (7-18) mg/dl Creatinine (0.6-1.4) mg/dl Est Cr Clr Drug Dosing ml/min Est GFR ( Amer) Est GFR (Non-Af Amer) BUN/Creatinine Ratio (10-20) Glucose (70-99) mg/dl Calcium (8.5-10.1) mg/dl Phosphorus (2.5-4.9) mg/dl Magnesium (1.8-2.4) mg/dl Total Bilirubin (0.2-1) mg/dl AST (15-37) U/L ALT (12-78) U/L Alkaline Phosphatase (45-117) U/L Ammonia (11-32) umol/L Troponin I (0-0.045) ng/ml Total Protein (6.4-8.2) gm/dl Albumin (3.4-5.0) gm/dl Globulin (2.5-4.0) gm/dl Albumin/Globulin Ratio (0.9-2) TSH (0.300-4.500) uIu/ml POC Stool Occult Blood (Negative) Ethyl Alcohol mg/dL (0-3) mg/dl SARS-CoV-2 Ag (Rapid) (Negative) Code Status & VTE Plan Code Status full code Supervising Physician Co-Signing Physician Notes Patient seen and examined, chart reviewed, case discussed with Dr. Cantrell and I agree with his assessment and plan as documented above. Briefly, patient is an unfortunate 39yo male with history of cirrhosis of the liver due to HCV and EtOH abuse now in remission presenting in acute liver failure. Patient has been seen here before, most recently in March 2020 when he was hospitalized for alcoholic hepatitis. He was evaluated by GI and referred to hepatology/transplant after that admission. Patient failed to followup as instructed. He presents today after what he thought was an anxiety attack at home as well as weakness and fatigue. He reports a small amount of bright red blood per rectum. He is severely jaundiced and has had progression of bilateral LE edema as well as abdominal ascites for some time - he is unable to provide a clear time line. Patient is no longer drinking EtOH and has not had a drink for at least 2 months On exam he is afebrile, mildly hypotensive, NAD Skin - +Jaundice HEENT - NC/AT, +Icterus, neck supple, MMM Heart - +S1/S2, regular, no m/r/g Lungs - CTA anteriorly, no m/r/g Abd - +Distention, soft, NT, + ascites Ext - 3+ pitting edema of bilateral LE Neuro - AAA&O x 4, nonfocal exam, no asterixis Patient's weight stated to be 112kg today. Was 99.4kg on discharge in March. Labs and images reviewed. Significant for neutrophil predominant leukocytosis with WBC= 13.57 Macrocytic anemia with Hgb=10.6 and Hct=29.1 - reduced from prior values of 12.2 and 35.1, respectively on 04/05/20. JPJ=979.9 Platelets low at 108 INR elevated at 2.4 Ib=999, Cl=85, BUN=28. Cr is unable to be obtained due to bilirubin level in blood - sample is being sent out for evaluation Tbili=30.5 AST=58 Alb=2.4 FOBT + Patient's current MELD score is 33 associated with a 52.6% 3 month mortality He would best be served at a tertiary center with hepatology and transplant services. [facility] and [facility] contacted. No beds available at these institutions at this time. Lengthy discussion between ER attending and Dr. Piper (Transplant surgeon at [facility]) who stated that patient would most likely not be considered for transplant services at this time due to his fairly recent use of EtOH. Protocol used to mandate that the patient be abstinent from EtOH for 6 months prior to transplant - Dr. Piper informed us that now it is viewed more on a case by case basis taking into account the patient's willingness to comply to therapy, family support, etc. Patient is already in the [facility] system as he was referred already to hepatology. If he is not able to be transferred to [facility] for logistical reasons, he should followup with them promptly upon discharge. -Admit to PCU -Check abdominal US with doppler to rule out PVT -GI consultation - ?therapeutic paracentesis in AM with administration of alb umin. Patient was reluctant to have this done and states he prefers to try with diuretics. -UA and culture, blood cultures x 2 sets -Ceftriaxone -Protonix 40mg IV BID -IV albumin -Remainder of plan as above -Transfer to a facility with Hepatology/Transplant services should be readdressed in the morning as stated above Resident Activity Tracking Resident Involvement: Resident Care Provided Care Provided: Adult Hospital Medicine (1) Edema Edema type: unspecified Qualified Code(s): R60.9 - Edema, unspecified (2) Alcoholic hepatitis Ascites presence: unspecified Qualified Code(s): K70.10 - Alcoholic hepatitis without ascites (3) Cirrhosis Ascites presence: unspecified Hepatic cirrhosis type: alcoholic cirrhosis Qualified Code(s): K70.30 - Alcoholic cirrhosis of liver without ascites (4) Hepatitis C Hepatic coma status: without hepatic coma Viral hepatitis chronicity: unspecified Qualified Code(s): B19.20 - Unspecified viral hepatitis C without hepatic coma
[2020-06-12] MEDS ORDERED: ONDANSETRON INJ 2 MG/ML 2 ML VIAL IV PRN (03:28)
[2020-06-12] MEDS ORDERED: POLYETHYLENE (MIRALAX) 17 GM PACK PO PRN (03:28)
[2020-06-12] MEDS ORDERED: PANTOprazole 40 MG in SYRINGE 0 ML IV ONE (03:37)
[2020-06-12] MEDS: ALBUMIN 25% 12.5 GM/50 ML VIAL IV SCH ×2 (04:04→04:23)
--- NOTE | 2020-06-12 05:34 | Billing Data ---
Date of Service June 12, 2020 Coding Level of Care Code 78133 Initial Inpt Care Lvl 3
[2020-06-12] MEDS: cefTRIAXone SODIUM 2,000 MG in DEXTROSE 5% 50 ML IV SCH (05:52)
[2020-06-12] MEDS: PANTOprazole 40 MG in SYRINGE 0 ML IV SCH ×2 (07:59→20:25)
[2020-06-12 08:52] LABS: Hematocrit (blood only) 23.6 % (42-52); Hemoglobin 8.5 g/dL (14.0-18.0); Mean Corpuscular Hemoglobin 40.5 pg (25-34); Mean Corpuscular Volume 112.4 fL (80-100); RDW Coefficient of Variation 14.1 % (11.5-14.5); RDW Standard Deviation 56.4 fL (36.4-46.3); White Blood Count 13.44 K/uL (4.8-10.8)
[2020-06-12 09:03] LABS: INR 2.5 (0.9-1.1); Prothrombin Time 25.3 Seconds (9.0-12.0)
[2020-06-12 09:16] LABS: Basophils # (auto) 0.01 K/uL (0-0.2); Basophils % (auto) 0.1 %; Eosinophils # (auto) 0.11 K/uL (0-0.5); Eosinophils % (auto) 0.8 %; Immature Granulocytes # (auto) 0.07 K/uL (0.00-0.02); Immature Granulocytes % (auto) 0.5 %; Lymphocytes # (auto) 1.82 K/uL (1.2-3.4); Lymphocytes % (auto) 13.5 %; Macrocytosis Present; Mean Platelet Volume 8.2 fL (7.4-10.4); Monocytes # (auto) 1.95 K/uL (0.11-0.59); Monocytes % (auto) 14.5 %; Neutrophils # (auto) 9.48 K/uL (1.4-6.5); Neutrophils % (auto) 70.6 %; Platelet Count 87 K/uL (130-400); Platelet Estimate Decreased (Normal)
--- NOTE | 2020-06-12 09:33 | XRay Report ---
XR chest 1V portable HISTORY: weakness COMPARISON: Chest 03/31/2020. FINDINGS: No pneumothorax. The heart is normal in size. There are low lung volumes. Small right pleur al effusion and right basilar airspace opacity are noted. The left lung is essentially clear. IMPRESSION: Small right pleural effusion and a right basilar airspace opacity. This could represent atelectasis o r pneumonia. ACT 112: Negative or not required by law. Electronically signed by: Spencer Hutchinson M.D. 06/12/2020 9:32 AM
[2020-06-12 09:56] LABS: Alanine Aminotransferase 29 U/L (12-78); Albumin Level 2.3 gm/dl (3.4-5.0); Alkaline Phosphatase 35 U/L (45-117); Aspartate Aminotransferase 48 U/L (15-37); Bilirubin,Total 27.2 mg/dl (0.2-1); Blood Urea Nitrogen 33 mg/dl (7-18); Calcium 8.4 mg/dl (8.5-10.1); Carbon Dioxide 26 mmol/L (21-32); Chloride 87 mmol/L (98-107); Glucose 126 mg/dl (70-99); Potassium 3.7 mmol/L (3.5-5.1); Sodium 125 mmol/L (136-145)
[2020-06-12] MEDS: buprenorphine HCL 8 MG SUBL SL SCH (10:09)
--- NOTE | 2020-06-12 10:30 | Gastrointestinal Consultation ---
Date of Consultation June 12, 2020 Assessment & Plan (1) Alcoholic hepatitis: Patient with decompensated Liver disease related to Alcohol use, INR elevated to 2.5 and bilirubin up to 30. His mental status remains intact. At this point, I see no therapy other than supportive care and nutrition support. Not clear about benefit of NAC. My opinion is he should be admitted in tertiary care center with Hepatology service however he was not accepted. Will continue to monitor his mental status, if any change then would evaluate transfer again. Obtain Ultrasound with doppler to r/o PVT and check for ascites, needs paracentesis if ascites is large to r/o SBP. Continue Ceftriaxone for now. Consider trial of Vitamin K, 5 mg SQ daily for 3 days. Monitor INR. His creatinine is normal, BUN elevated, FOBT positive, he had solid food today hence can not perform endoscopy. Support with Thiamin and folic acid. Plan for EGD tomorrow to r/o varices if H/H continues to drop, please keep NPO after midnight tentatively. (2) Jaundice: (3) Elevated INR: (4) Cirrhosis: History of Present Illness Attending Physician: Vinay Perez MD 39 years old male patient with Hx of Alcoholic liver disease, possible liver cirrhosis, HCV Ab positive but RNA negative, was admitted 2 months ago with alcoholic hepatitis and treated with Prednisone, now presented to the hospital with fatigue. Labs showed Bilirubin of 30, INR of 2.5. He reports no alcohol use for the last 2 months. Denies any nausea, vomiting or abdominal pain, no melena but notices bright red blood per rectum. Allergies Allergy/AdvReac Type Severity Reaction Status Date / Time naloxone AdvReac Intermediate SEE COMMENT Verified 06/11/20 23:36 Home Medications Medication Instructions Recorded Confirmed Type buprenorphine HCl 12 mg SUBLINGUAL DAILY 06/06/19 06/11/20 History Patient History Medical History Alcohol withdrawal Alcoholic hepatitis Cirrhosis Coagulopathy Heart valve regurgitation Hepatitis C Hyperammonemia Leg swelling Surgical History No pertinent past surgical history Social History Smoking Status: Current every day smoker Tobacco Type: Cigarettes Cigarettes Per Day: 1/2 pack or less; Second Hand Exposure: Yes; Hx Alcohol Use: Yes Alcohol type: hard liquor Alcohol Intake Frequency Comment: States quit in March after most recent hospital discharge Hx Substance Use: Yes Last Used Substance: Unknown Preferred Language: Mexican Communication Ability: Effective Testing And Regulating Chief Required: No Beliefs That Will Affect Care: None Current Living Situation: Family Feels Safe at Home: Yes Assistive Devices: None Review of Systems 2 Constitutional: + fatigue; no fever and no chills Eyes: no eye pain and no worsening vision Ear, Nose, Mouth, Throat: no tinnitus, no dizziness, no nasal discharge and no epistaxis Respiratory: no cough, no dyspnea, no dyspnea on exertion and no wheezing Cardiovascular: no chest pain, no orthopnea, no palpitations and no edema Gastrointestinal: as per Subjective / HPI Musculoskeletal: no stiffness and no myalgia Neurologic: no localized weakness, no paralysis, no tremor(s) and no headache(s) Endocrine: no polydipsia and no polyuria Hematologic / Lymphatic: no easy bleeding and no night sweats Physical Exam Constitutional: + well hydrated, cooperative and comfortable Eyes: + scleral abnormality and PERRL + scleral icterus ENMT: external ear and nose normal, oropharynx normal Neck: normal visual inspection and trachea midline Respiratory: normal respiratory effort, lungs clear to auscultation Auscultation: no wheezes Cardiovascular: Rate/Rhythm: regular rate and regular rhythm Extremities: + pedal edema Gastrointestinal (Abdomen): Inspection/Auscultation: + abdomen distended Percussion/Palpation: abdomen soft, + splenomegaly and + ascites Musculoskeletal: no cyanosis or clubbing, extremities motor strength 5/5 Skin: no rashes, warm and dry Neurologic: awake; no focal motor deficits Motor/Sensory: + asterixis Results & Data ([facility]) Vital Signs (Past 12 Hours) Vital Signs Temp Pulse Pulse Resp BP BP Pulse Ox 06/12/20 07:09 36.9 C 102 H 18 104/58 L 95 06/12/20 05:26 36.7 C 20 94 06/12/20 05:17 36.7 C 107 H 20 126/75 94 06/12/20 04:30 95 H 15 85/44 L 94 06/12/20 04:00 99 H 19 102/50 L 06/12/20 03:30 102 H 11 L 98/65 L 95 06/12/20 03:00 98 H 30 H 92/48 L 94 06/12/20 02:30 94 H 15 88/48 L 92 06/12/20 02:01 95 H 25 H 92/47 L 93 06/12/20 02:00 94 H 21 93 06/12/20 01:31 98 H 25 H 107/61 95 06/12/20 01:00 93 H 17 109/56 L 97 06/12/20 00:30 91 H 15 103/56 L 95 06/12/20 00:00 95 H 13 115/58 L 96 06/11/20 23:31 97 06/11/20 23:30 96 H 18 107/59 L 97 06/11/20 23:11 120 H 18 100 06/11/20 23:06 110 H 19 137/82 97 06/11/20 22:46 36.6 C 94 H 20 137/82 98 Laboratory Results Laboratory Results - last 24 hr 06/11/20 06/11/20 06/11/20 23:49 23:49 23:49 WBC 13.57 H RBC 2.60 L Hgb 10.6 L Hct 29.1 L MCV 111.9 H MCH 40.8 H MCHC 36.4 H RDW Std Deviation 55.5 H RDW Coeff of Munir 13.9 Plt Count 108 L MPV 8.3 Immature Gran % (Auto) 0.7 Neut % (Auto) 73.1 Lymph % (Auto) 10.3 [place] % (Auto) 15.7 Eos % (Auto) 0.1 Baso % (Auto) 0.1 Neut # (Auto) 9.92 H Lymph # (Auto) 1.40 [place] # (Auto) 2.13 H Eos # (Auto) 0.02 Baso # (Auto) 0.01 Immature Gran # (Auto) 0.09 H Hypersegmented Neuts 1+ Platelet Estimate Polychromasia 1+ Macrocytosis Present Echinocytes 1+ PT 23.8 H INR 2.4 H Sodium 124 L Potassium 3.6 Chloride 85 L Carbon Dioxide 27 Anion Gap 12.0 H BUN 28 H Creatinine Est Cr Clr Drug Dosing Est GFR ( Amer) Est GFR (Non-Af Amer) BUN/Creatinine Ratio Glucose 122 H POC Glucose Calcium 8.5 Phosphorus 3.6 Magnesium 2.5 H Total Bilirubin 30.5 H AST 58 H ALT 40 Alkaline Phosphatase 42 L Ammonia Troponin I < 0.015 Total Protein Albumin 2.4 L Globulin Albumin/Globulin Ratio TSH 1.950 POC Stool Occult Blood Ethyl Alcohol mg/dL SARS-CoV-2 Ag (Rapid) Miscellaneous Test Miscellaneous Test 2 06/11/20 06/11/20 06/12/20 23:49 23:49 03:57 WBC RBC Hgb Hct MCV MCH MCHC RDW Std Deviation RDW Coeff of Munir Plt Count MPV Immature Gran % (Auto) Neut % (Auto) Lymph % (Auto) [place] % (Auto) Eos % (Auto) Baso % (Auto) Neut # (Auto) Lymph # (Auto) [place] # (Auto) Eos # (Auto) Baso # (Auto) Immature Gran # (Auto) Hypersegmented Neuts Platelet Estimate Polychromasia Macrocytosis Echinocytes PT INR Sodium Potassium Chloride Carbon Dioxide Anion Gap BUN Creatinine Cancelled Est Cr Clr Drug Dosing Cancelled Est GFR ( Amer) Cancelled Est GFR (Non-Af Amer) Cancelled BUN/Creatinine Ratio Glucose POC Glucose Calcium Phosphorus Magnesium Total Bilirubin AST ALT Alkaline Phosphatase Ammonia < 10.0 L Troponin I Total Protein Albumin Globulin Albumin/Globulin Ratio TSH POC Stool Occult Blood Ethyl Alcohol mg/dL < 3.0 SARS-CoV-2 Ag (Rapid) Miscellaneous Test Miscellaneous Test 2 06/12/20 06/12/20 06/12/20 03:57 07:50 08:36 WBC 13.44 H RBC 2.10 L Hgb 8.5 L Hct 23.6 L MCV 112.4 H MCH 40.5 H MCHC 36.0 RDW Std Deviation 56.4 H RDW Coeff of Munir 14.1 Plt Count 87 L MPV 8.2 Immature Gran % (Auto) 0.5 Neut % (Auto) 70.6 Lymph % (Auto) 13.5 [place] % (Auto) 14.5 Eos % (Auto) 0.8 Baso % (Auto) 0.1 Neut # (Auto) 9.48 H Lymph # (Auto) 1.82 [place] # (Auto) 1.95 H Eos # (Auto) 0.11 Baso # (Auto) 0.01 Immature Gran # (Auto) 0.07 H Hypersegmented Neuts Platelet Estimate Decreased L Polychromasia Macrocytosis Present Echinocytes PT INR Sodium Potassium Chloride Carbon Dioxide Anion Gap BUN Creatinine Est Cr Clr Drug Dosing Est GFR ( Amer) Est GFR (Non-Af Amer) BUN/Creatinine Ratio Glucose POC Glucose 130 H Calcium Phosphorus Magnesium Total Bilirubin AST ALT Alkaline Phosphatase Ammonia Troponin I Total Protein Albumin Globulin Albumin/Globulin Ratio TSH POC Stool Occult Blood Ethyl Alcohol mg/dL SARS-CoV-2 Ag (Rapid) Miscellaneous Test Pending Miscellaneous Test 2 06/12/20 06/12/20 06/12/20 08:36 08:36 08:36 WBC RBC Hgb Hct MCV MCH MCHC RDW Std Deviation RDW Coeff of Munir Plt Count MPV Immature Gran % (Auto) Neut % (Auto) Lymph % (Auto) [place] % (Auto) Eos % (Auto) Baso % (Auto) Neut # (Auto) Lymph # (Auto) [place] # (Auto) Eos # (Auto) Baso # (Auto) Immature Gran # (Auto) Hypersegmented Neuts Platelet Estimate Polychromasia Macrocytosis Echinocytes PT 25.3 H INR 2.5 H Sodium 125 L Potassium 3.7 Chloride 87 L Carbon Dioxide 26 Anion Gap 13.0 H BUN 33 H Creatinine Est Cr Clr Drug Dosing Pending Est GFR ( Amer) Pending Est GFR (Non-Af Amer) Pending BUN/Creatinine Ratio TNP Glucose 126 H POC Glucose Calcium 8.4 L Phosphorus Magnesium 2.3 Total Bilirubin 27.2 H AST 48 H ALT 29 Alkaline Phosphatase 35 L Ammonia Troponin I Total Protein Albumin 2.3 L Globulin TNP Albumin/Globulin Ratio TNP TSH POC Stool Occult Blood Ethyl Alcohol mg/dL SARS-CoV-2 Ag (Rapid) Miscellaneous Test Miscellaneous Test 2 06/12/20 06/12/20 06/12/20 08:41 Unknown Unknown WBC RBC Hgb Hct MCV MCH MCHC RDW Std Deviation RDW Coeff of Munir Plt Count MPV Immature Gran % (Auto) Neut % (Auto) Lymph % (Auto) [place] % (Auto) Eos % (Auto) Baso % (Auto) Neut # (Auto) Lymph # (Auto) [place] # (Auto) Eos # (Auto) Baso # (Auto) Immature Gran # (Auto) Hypersegmented Neuts Platelet Estimate Polychromasia Macrocytosis Echinocytes PT INR Sodium Potassium Chloride Carbon Dioxide Anion Gap BUN Creatinine Est Cr Clr Drug Dosing Est GFR ( Amer) Est GFR (Non-Af Amer) BUN/Creatinine Ratio Glucose POC Glucose Calcium Phosphorus Magnesium Total Bilirubin AST ALT Alkaline Phosphatase Ammonia Troponin I Total Protein Albumin Globulin Albumin/Globulin Ratio TSH POC Stool Occult Blood Positive A Ethyl Alcohol mg/dL SARS-CoV-2 Ag (Rapid) Negative Miscellaneous Test Pending Miscellaneous Test 2 Pending (1) Alcoholic hepatitis Ascites presence: unspecified Qualified Code(s): K70.10 - Alcoholic hepatitis without ascites (2) Cirrhosis Hepatic cirrhosis type: alcoholic cirrhosis Ascites presence: unspecified Qualified Code(s): K70.30 - Alcoholic cirrhosis of liver without ascites
--- NOTE | 2020-06-12 10:46 | Ultrasound Report ---
US duplex portal hepatic veins CLINICAL HISTORY: Cirrhotic liver. Assess for portal vein thrombosis. COMPARISON STUDY: Abdominal ultrasound 04/01/2020. FINDINGS: There is again noted a cirrhotic liver with moderate ascites. The portal and hepatic veins are patent and demonstrate normal direction of flow. IMPRESSION: 1. No evidence for portal or hepatic vein thrombosis. 2. Cirrhotic liver with moderate ascites. ACT 112: Negative or not required by law. Electronically signed by: Spencer Hutchinson M.D. 06/12/2020 10:45 AM
[2020-06-12 16:15] LABS: Amphetamines+Metham, Urine Neg (Neg); Barbiturates, Urine Neg (Neg); Benzodiazepine, Urine Neg (Neg); Cocaine, Urine Neg (Neg); MDMA (Ecstacy), Urine Neg (Neg); Methadone, Urine Neg (Neg); Opiate, Urine Neg (Neg); Phencyclidine, Urine Neg (Neg)
--- NOTE | 2020-06-12 17:31 | Hospitalist Progress Note ---
Date of Service June 12, 2020 Assessment & Plan (1) Acute hepatic failure: Acute hepatic failure with Tbili of 30.5 on admission and INR of 2.5. - As per H&P, multiple hospitals were called and did not have beds and declined transfer. The patient is open to transfer if needed. - Concern for SBP and abx were started overnight. I informed patient of the need for paracentesis, explaining the need to see if bacteria were there and how this would help us better manage his care. I explained that I could do this for him immediately, an he replied that he "didn't feel like it right now." I will return this afternoon to ask again if he will at least let me get a diagnostic sample. - Presently mental status is stable, and I do think that while this is not a choice that is conducive to his best care, he is capable of making the decision on his own. - Continue abx - GI consulted (2) Hepatitis C: HCV Ab was positive in 01/2020, but no RNA detected indicating cleared infection. - Further work-up/treatment pursuant to outpatient follow up (3) Abdominal ascites: Due to his cirrhosis. - Moderate ascites seen on ultrasound on 06/12 - As above, presently declining paracentesis. (4) Lower extremity edema: Due to his cirrhosis. - Holding diuretics at this time (5) Alcohol abuse: Reports last drink was prior to last hospitalization in 03/2020. - Monitor (6) Substance abuse in remission: No withdrawal at this time. - Continue buprenorphine daily (7) DVT prophylaxis: Admission and Anticipated Discharge Date Admission Date: June 12, 2020 Subjective Reports he is "tired," but otherwise has no focal complaints. Denies abdominal pain or shortness of breath. Reports no nausea, no hematemesis, no melena. No fevers/chills. Acts annoyed at my questions and keeps his eyes closed during the majority of our interview. Physical Exam Constitutional: WD/WN, vitals as above Eyes: EOM intact bilaterally; sclerae not anicteric (Icteric) ENMT: external ear and nose normal, oropharynx normal Neck: trachea midline, no thyromegaly normal visual inspection Respiratory: normal respiratory effort, lungs clear to auscultation no respiratory distress Cardiovascular: Rate/Rhythm: regular rate and + tachycardic Heart Sounds: normal S1 and normal S2 Extremities: no edema Gastrointestinal (Abdomen): Inspection/Auscultation: + abdomen distended and + hypoactive bowel sounds; + abdomen abnormal to inspection Percussion/Palpation: abdomen soft and + ascites; abdomen nontender, no guarding and abdomen not rigid Musculoskeletal: no cyanosis or clubbing, extremities motor strength 5/5 Skin: no rashes, warm and dry + jaundice Neurologic: moves all extremities and awake Psychiatric: Orientation: alert, oriented to person and cooperative Results & Data Results & Data ([facility]) Vital Signs (Past 12 Hours) Vital Signs Temp Pulse Pulse Resp BP BP Pulse Ox 06/12/20 15:14 37.1 C 107 H 20 108/60 95 06/12/20 11:26 37.0 C 103 H 20 105/57 L 90 06/12/20 07:09 36.9 C 102 H 18 104/58 L 95 06/12/20 05:26 36.7 C 20 94 PG Care Time/CCT Total # of Minutes Spent Total Time Spent with Patient: Total time spent is greater than 50% in coordination of care (as documented) at patient's floor/unit and/or counseling patient: Coding Level of Care Code 10360 Subseq Hosp Care Lvl 3 Diagnoses Acute hepatic failure K72.00 Hepatitis C B19.20 Hepatic coma status: without hepatic coma Viral hepatitis chronicity: unspecified Abdominal ascites R18.8 Lower extremity edema R60.0 Alcohol abuse F10.10 Substance abuse in remission F19.11 DVT prophylaxis Z29.9 (1) Hepatitis C Hepatic coma status: without hepatic coma Viral hepatitis chronicity: unspecified Qualified Code(s): B19.20 - Unspecified viral hepatitis C without hepatic coma
[2020-06-12 18:52] LABS: Vitamin B12 > 2000 pg/ml (193-986)
[2020-06-12] MEDS ORDERED: OCTREOTIDE ACETATE 50 MCG in SYRINGE 9.5 ML IV ONE (19:15)
[2020-06-12 19:18] LABS: Iron 100 mcg/dl (35-175); Transferrin 138 mg/dl (200-360); Transferrin (FE) Percent Satur 51 % (20-50)
[2020-06-12] MEDS: PHYTONADIONE 5 MG in SODIUM CHLORIDE 0.9% 50 ML IV SCH (19:58)
[2020-06-12] MEDS: OCTREOTIDE ACETATE 500 MCG in 0.9 % SODIUM CHLORIDE 100 ML IV SCH (20:25)
--- NOTE | 2020-06-12 22:08 | Electrocardiogram Report ---
Test Reason : Blood Pressure : / mmHG Vent. Rate : 096 BPM Atrial Rate : 096 BPM P-R Int : 138 ms QRS Dur : 084 ms QT Int : 394 ms P-R-T Axes : 037 -21 056 degrees QTc Int : 497 ms Normal sinus rhythm Possible Left atrial enlargement Nonspecific T wave abnormality Prolonged QT Abnormal ECG When compared with ECG of 31-MAR-2020 12:55, MD interval has increased Confirmed by Jesse Clark ([id number]) on 06/12/2020 10:07:50 PM Referred By: REFERRED SELF Confirmed By:Jesse Clark
[2020-06-13] MEDS: cefTRIAXone SODIUM 2,000 MG in DEXTROSE 5% 50 ML IV SCH (05:47)
[2020-06-13] MEDS: OCTREOTIDE ACETATE 500 MCG in 0.9 % SODIUM CHLORIDE 100 ML IV SCH ×2 (05:53→16:12)
[2020-06-13 07:28] LABS: Hematocrit (blood only) 24.3 % (42-52); Hemoglobin 8.6 g/dL (14.0-18.0); Mean Corpuscular Hemoglobin 40.2 pg (25-34); Mean Corpuscular Hgb Conc 35.4 g/dL (32-36); Mean Corpuscular Volume 113.6 fL (80-100); RDW Coefficient of Variation 14.3 % (11.5-14.5); RDW Standard Deviation 58.3 fL (36.4-46.3); Red Blood Count 2.14 M/uL (4.7-6.1); White Blood Count 12.57 K/uL (4.8-10.8)
[2020-06-13 07:34] LABS: Mean Platelet Volume 8.1 fL (7.4-10.4); Platelet Count 82 K/uL (130-400)
[2020-06-13 07:42] LABS: INR 2.4 (0.9-1.1); Prothrombin Time 23.7 Seconds (9.0-12.0)
--- NOTE | 2020-06-13 08:12 | History & Physical Bridge Note ---
Date of Service June 13, 2020 History & Physical Bridge Note I have examined the patient, reviewed the History & Physical and in the interval since the performance of the History & Physical I have noted the following changes of clinical significance: no changes noted Proceed with EGD. risks/benefits and procedure discussed with patient, who agrees to proceed
[2020-06-13 08:17] LABS: Calcium 8.1 mg/dl (8.5-10.1)
[2020-06-13 08:18] LABS: Alanine Aminotransferase 31 U/L (12-78); Albumin Level 2.2 gm/dl (3.4-5.0); Alkaline Phosphatase 47 U/L (45-117); Aspartate Aminotransferase 51 U/L (15-37); Bilirubin,Total 24.7 mg/dl (0.2-1); Blood Urea Nitrogen 38 mg/dl (7-18); Carbon Dioxide 27 mmol/L (21-32); Chloride 88 mmol/L (98-107); Glucose 109 mg/dl (70-99); Magnesium 2.3 mg/dl (1.8-2.4); Phosphorus 4.2 mg/dl (2.5-4.9); Potassium 3.9 mmol/L (3.5-5.1); Sodium 125 mmol/L (136-145)
[2020-06-13] MEDS: buprenorphine HCL 8 MG SUBL SL SCH ×2 (08:32→08:34)
--- NOTE | 2020-06-13 08:45 | Anesthesiology Consultation ---
Date of Service June 13, 2020 Assessment & Plan (1) Encounter for pre-operative examination: Chart Review Chart Review: Acceptable Risk for Surgery (COVID testing pending) History Surgery Operation Date: 06/13/20 09:45 Proposed Procedures p Esophagogastroduodenoscopy Dr. Michael Rodriguez MD Height/Weight Height: 6 ft Weight: 107.8 kg Allergies Allergy/AdvReac Type Severity Reaction Status Date / Time naloxone AdvReac Intermediate SEE COMMENT Verified 06/11/20 23:36 Medications Home Medications Medication Instructions Recorded Confirmed Last Taken buprenorphine HCl 12 mg SUBLINGUAL DAILY 06/06/19 06/11/20 06/11/20 Active Medications Generic Name Dose Route Start Last Admin Trade Name Freq PRN Reason Stop Dose Admin Buprenorphine HCl 12 mg 06/12/20 09:00 06/13/20 08:34 Buprenorphine Hcl 8 Mg Subl SL 07/12/20 08:59 4 mg DAILY KETAN Administration Ceftriaxone Sodium 2,000 mg/ 70 mls @ 100 mls/hr 06/12/20 06:00 06/13/20 06:04 Dextrose IV 06/14/20 05:59 0 mls/hr Q24H KETAN Infusion Protocol Pantoprazole Sodium 40 mg/ 10 mls @ 5 mls/min 06/12/20 09:00 06/12/20 20:25 Syringe IV 07/12/20 08:59 5 mls/min BID KETAN Administration Phytonadione 5 mg/ Sodium 50.5 mls @ 101 mls/hr 06/12/20 18:30 06/12/20 20:38 Chloride IV 06/14/20 09:29 Infused DAILY KETAN Infusion Protocol Octreotide Acetate 500 mcg/ 105 mls @ 10 mls/hr 06/12/20 19:15 06/13/20 05:53 Sodium Chloride IV 07/12/20 19:14 10 mls/hr .[id number] KETAN Administration Past Medical History Medical History (Updated 06/13/20 @ 08:42 by Natanael Moreira MD) Abdominal ascites Alcohol withdrawal Alcoholic hepatitis Cirrhosis Coagulopathy Heart valve regurgitation Hepatitis C Hyperammonemia Hyponatremia Leg swelling Pancytopenia Smoker Substance abuse in remission Thrombocytopenia Past Surgical History Surgical History No pertinent past surgical history Social History Smoking Status: Current every day smoker tobacco type: cigarettes Smoking cigarettes per day: 1/2 pack or less Do You Dip or Chew Tobacco: No Hx Alcohol Use: Yes Alcohol type: hard liquor alcohol intake frequency: 3 or more drinks per day Hx Substance Use: Yes substance use type: marijuana and heroin Last Used Substance: Unknown Physical Exam Vital Signs Last Vital Signs Temp 36.9 C 06/13/20 04:00 Pulse 95 H 06/13/20 04:00 Resp 18 06/13/20 04:00 BP 104/59 L 06/13/20 04:00 Pulse Ox 93 06/13/20 04:00 Testing Laboratory Results 06/13/20 07:05 06/13/20 07:05 PT 23.7 Seconds (9.0-12.0) H 06/13/20 07:05 INR 2.4 (0.9-1.1) H 06/13/20 07:05 06/12/20 04:18 Aerobic Blood Culture - Preliminary Blood No growth in Aerobic bottle after 24 hours. Anaerobic Blood Culture - Preliminary No growth in Anaerobic bottle after 24 hours. 06/12/20 03:57 Aerobic Blood Culture - Preliminary Blood No growth in Aerobic bottle after 24 hours. Anaerobic Blood Culture - Preliminary No growth in Anaerobic bottle after 24 hours. Electrocardiogram Date: 06/11/20 Findings: + NSR @ (96) and + NSST changes Chest X-Ray Date: 06/11/20 Findings: + atelectasis (vs infiltrate right base) and + pleural effusion (small right sided) Echocardiogram Date: 04/02/20 EF: 65-70% LV Function: normal Other Findings: + atrial enlargement Valvular Disease: + no significant valvular disease
[2020-06-13] MEDS: PHYTONADIONE 5 MG in SODIUM CHLORIDE 0.9% 50 ML IV SCH (09:29)
[2020-06-13] MEDS: PANTOprazole 40 MG in SYRINGE 0 ML IV SCH ×2 (09:29→20:34)
[2020-06-13] MEDS ORDERED: LORazepam 0.5 MG TAB PO STA (09:44)
--- NOTE | 2020-06-13 09:57 | Gastrointestinal Consultation ---
Date of Consultation June 13, 2020 Assessment & Plan (1) Alcoholic hepatitis: (2) Macrocytic anemia: (3) Ascites: -Recommend transfer to a transplant center as soon as possible -Paracentesis with fluid studies today if patient is agreeable (empiric antibiotics were started prior to this) -EGD on 06/14/2019 if patient is agreeable -Need a creatinine to calculate MELD score -Protonix 40 mg BID -Continue to monitor H/H -Continue Lactulose--titrate to a minimum of 3 bowel movements daily -Xifaxan 550 mg BID -Continue to monitor INR Supervising Physician Co-Signing Physician Notes I personally evaluated the patient and agree with the findings as documented by Tracey Hernandez, PAC Exam: abd: soft, nt, nd EGD tomorrow, would benefit from tertiary care center with OLT capabilities. add zinc sulfate daily for Hepatic encephalopathy. History of Present Illness Reason for Consultation: Alcoholic hepatitis Attending Physician: Vinay Perez MD History of Present Illness Zoltan Lorenz is a 39 yo male with a PMH of cirrhosis, alcoholism, hepatitis C, substance abuse on Buprenorphine, & recurrent admissions for alcoholic hepatitis. The patient reported on presentation that he felt that he had an anxiety attack that resulted in a fall. He then experienced weakness that ultimately led him to present to the ED. He has been admitted frequently for alcoholic hepatitis. He has refused alcohol rehab repeatedly. He has decompensated quickly and has not been compliant with outpatient follow-up. He is quite uncooperative with a GI evaluation this morning. He does state at one point that he does not want to , but also requests to just be left alone to sleep. He is hesitant committing to procedures (EGDs & paracentesis). The patient's labs upon presentation to the ED indicated leukocytosis with predominant neutrophils, hemoglobin ranging from 8-10 during this stay, CMP indicates a sodium of 124, AST of 58, ALT normal, & Total Bilirubin of >24. Unfortunately a MELD cannot be calculated at present as we have not been able to obtain a serum creatinine due to icteric samples. INR 2.4. Allergies Allergy/AdvReac Type Severity Reaction Status Date / Time naloxone AdvReac Intermediate SEE COMMENT Verified 06/11/20 23:36 Home Medications Medication Instructions Recorded Confirmed Type buprenorphine HCl 12 mg SUBLINGUAL DAILY 06/06/19 06/11/20 History Patient History Medical History (Updated 06/13/20 @ 10:26 by Tracey Hernandez PA-C) Abdominal ascites Alcohol withdrawal Alcoholic hepatitis Cirrhosis Coagulopathy Heart valve regurgitation Hepatitis C Hyperammonemia Hyponatremia Leg swelling Pancytopenia Smoker Substance abuse in remission Thrombocytopenia Surgical History No pertinent past surgical history Social History Smoking Status: Current every day smoker Tobacco Type: Cigarettes Cigarettes Per Day: 1/2 pack or less; Second Hand Exposure: Yes; Hx Alcohol Use: Yes Alcohol type: hard liquor Alcohol Intake Frequency Comment: States quit in March after most recent hospital discharge Hx Substance Use: Yes Last Used Substance: Unknown Preferred Language: Slovak Communication Ability: Effective Wire Temperer Required: No Beliefs That Will Affect Care: None Current Living Situation: Family Feels Safe at Home: Yes Assistive Devices: None Review of Systems Constitutional: + fatigue; no fever and no chills Eyes: no problem reported Ear, Nose, Mouth, Throat: no problem reported Respiratory: no cough and no dyspnea Cardiovascular: no chest pain Gastrointestinal: no abdominal pain and no blood in stools Musculoskeletal: no problem reported Integumentary: no rash Neurologic: no problem reported Psychiatric: no problem reported Endocrine: no problem reported Hematologic / Lymphatic: no unexplained weight loss Physical Exam Constitutional: well developed Eyes: + scleral abnormality Neck: normal visual inspection Respiratory: normal respiratory effort Cardiovascular: Extremities: no edema Gastrointestinal (Abdomen): Percussion/Palpation: + ascites Musculoskeletal: Head/Neck/Chest: normocephalic Skin: + jaundice; no rashes Psychiatric: Orientation: alert and oriented x 3 Results & Data ([facility]) Vital Signs (Past 12 Hours) Vital Signs Temp Pulse Pulse Resp BP Pulse Ox 06/13/20 09:49 37 C 110 H 97/56 L 90 06/13/20 09:34 37.0 C 94 H 101/59 L 90 06/13/20 04:00 36.9 C 95 H 18 104/59 L 93 06/13/20 01:04 101 H 06/12/20 23:51 36.8 C 97 H 18 101/52 L 93 PG Care Time/CCT Total # of Minutes Spent Total Time Spent with Patient: Total time spent is greater than 50% in coordination of care (as documented) at patient's floor/unit and/or counseling patient: Coding Level of Care Code 54173 Inpt Consult Level 4 Diagnoses Alcoholic hepatitis K70.10 Ascites presence: unspecified Macrocytic anemia D53.9 Ascites K70.11 Ascites type: due to alcoholic hepatitis (1) Ascites Ascites type: due to alcoholic hepatitis Qualified Code(s): K70.11 - Alcoholic hepatitis with ascites (2) Alcoholic hepatitis Ascites presence: unspecified Qualified Code(s): K70.10 - Alcoholic hepatitis without ascites
--- NOTE | 2020-06-13 12:42 | Communication Note ---
Date of Service: June 13, 2020 The patient had a negative Covid antigen test. He will have a rapid Penaloza test performed. The patient has been hyponatremic on admission. He will be change to a regular diet (with sodium intake encouraged) as well as free water restricted. The patient was discussed with his nurse and Dr. Perez from the medicine team.
[2020-06-13] MEDS ORDERED: LORazepam 0.5 MG/1 ML VIAL IV STA (14:11)
--- NOTE | 2020-06-13 15:25 | Ultrasound Report ---
ULTRASOUND-GUIDED DIAGNOSTIC AND THERAPEUTIC PARACENTESIS: HISTORY: Ascites. Procedure: The procedure and its risks, benefits and alternatives were discussed with the patient and written informed consent was obtained. Preliminary ultrasound of the abdomen was performed to determ ine a safe needle entry site. The left lower quadrant was prepped and draped in the usual sterile fashion. 1% Lidocaine was used fo r local anesthesia. A paracentesis needle-sheath was inserted into the peritoneal space using ultraso und guidance. The needle was removed and the sheath was connected to tubing and a vacuum suction alcides ce. A total of 4 liters of yellow ascites was aspirated. The sheath was removed and a sterile dressin g applied. The patient tolerated the procedure well and there were no immediate complications. IMPRESSION: Ultrasound-guided therapeutic paracentesis with aspiration of 4 liters of ascites. 1 L was sent to [facility] at the request of the referring physician. ACT 112: Negative or not required by law. Electronically signed by: Spencer Hutchinson M.D. 06/13/2020 3:24 PM
[2020-06-13] MEDS: LACTULOSE SYRUP 20 GM/30 ML UDC PO SCH ×2 (15:40→20:33)
--- NOTE | 2020-06-13 15:55 | Hospitalist Progress Note ---
Date of Service June 13, 2020 Assessment & Plan (1) Acute hepatic failure: Acute hepatic failure with Tbili of 30.5 on admission and INR of 2.5. - As per H&P, multiple hospitals were called and did not have beds and declined transfer. The patient is open to transfer if needed. - Concern for SBP and abx were started on 06/11. - Plan for paracentesis today if patient is willing. - Defer EGD until tomorrow if patient is willing. - Presently, he says he is not willing to be transferred to a tertiary care center today. He is AAOx3, can talk about why he is here, our management recommendations (i.e. paracentesis, EGD, and transfer), and why we want to do them. He acknowledges & understands my concerns for delaying these items. However, he says it is "too much" to think about and declines discussing them further or agreeing to anything but the paracentesis later today. - GI consulted - Appreciate recs. (2) Hyponatremia: Hypervolemic hyponatremia. - Will fluid restrict and allow to have Na. - Will get fluid osms tomorrow morning. (3) Hepatitis C: HCV Ab was positive in 01/2020, but no RNA detected indicating cleared infection. - Further work-up/treatment pursuant to outpatient follow up (4) Abdominal ascites: Due to his cirrhosis. - Moderate ascites seen on ultrasound on 06/12 - As above, presently declining EGD & transfer. (5) Lower extremity edema: Due to his cirrhosis. - Holding diuretics at this time (6) Alcohol abuse: Reports last drink was prior to last hospitalization in 03/2020. 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 - Continue buprenorphine daily (8) DVT prophylaxis: Admission and Anticipated Discharge Date Admission Date: June 12, 2020 Subjective The patient today again refuses to open his eyes for my interview. He reports he is frustrated that we are trying to "sneak" things into him. He reports he never agreed to a paracentesis this morning, but will think about it this afternoon. He reports that no one mentioned the EGD to him and will not do it today. He reports that he feels the ceftriaxone gives him nausea. Finally, he feels like there's "too much in my head" and won't discuss transfer today. Physical Exam Constitutional: WD/WN, vitals as above Eyes: EOM intact bilaterally; sclerae not anicteric (Icteric) ENMT: external ear and nose normal, oropharynx normal Neck: trachea midline, no thyromegaly normal visual inspection Respiratory: normal respiratory effort, lungs clear to auscultation no respiratory distress Cardiovascular: Rate/Rhythm: regular rate and + tachycardic Heart Sounds: normal S1 and normal S2 Extremities: no edema Gastrointestinal (Abdomen): Inspection/Auscultation: + abdomen distended and + hypoactive bowel sounds; + abdomen abnormal to inspection Percussion/Palpation: abdomen soft and + ascites; abdomen nontender, no guarding and abdomen not rigid Musculoskeletal: no cyanosis or clubbing, extremities motor strength 5/5 Skin: no rashes, warm and dry + jaundice Neurologic: moves all extremities and awake Psychiatric: Orientation: alert, oriented to person and cooperative Results & Data Results & Data ([facility]) Vital Signs (Past 12 Hours) Vital Signs Temp Pulse Resp BP BP Pulse Ox 06/13/20 15:31 36.3 C L 96 H 20 115/69 95 06/13/20 11:27 36.8 C 95 H 19 97/59 L 90 06/13/20 10:04 36.9 C 96 H 104/44 L 90 06/13/20 09:49 37 C 110 H 97/56 L 90 06/13/20 09:34 37.0 C 94 H 101/59 L 90 06/13/20 07:33 36.6 C 121 H 18 92/44 L 91 06/13/20 04:00 36.9 C 95 H 18 104/59 L 93 PG Care Time/CCT Total # of Minutes Spent Total Time Spent with Patient: Total time spent is greater than 50% in coordination of care (as documented) at patient's floor/unit and/or counseling patient: Coding Level of Care Code 38893 Subseq Hosp Care Lvl 3 Diagnoses Acute hepatic failure K72.00 Hyponatremia E87.1 Hepatitis C B19.20 Hepatic coma status: without hepatic coma Viral hepatitis chronicity: unspecified Abdominal ascites R18.8 Lower extremity edema R60.0 Alcohol abuse F10.10 Substance abuse in remission F19.11 DVT prophylaxis Z29.9 (1) Hepatitis C Hepatic coma status: without hepatic coma Viral hepatitis chronicity: unspecified Qualified Code(s): B19.20 - Unspecified viral hepatitis C without hepatic coma
[2020-06-13] MEDS: buprenorphine HCL 2 MG SUBL SL SCH ×2 (16:11→20:33)
[2020-06-13 16:29] LABS: Albumin Peritoneal Fluid 0.6 g/dl; Glucose Peritoneal Fluid 117 mg/dl; LDH Peritoneal Fluid 61 U/L; Total Protein Peritoneal Fluid 1.4 g/dl
[2020-06-13 17:09] LABS: Appearance Peritoneal Fluid HAZY; Basophils, Fluid 0 %; Color Peritoneal Fluid YELLOW; Eosinophils, Fluid 0 %; Lymphocytes, Fluid 32 %; Mono,Macrophage,Mesothelial 27 %; Neutrophils, Fluid 41 %; RBC Peritoneal Fluid (A) 5000 /uL; WBC Peritoneal Fluid (A) 193 /ul (0-300)
[2020-06-13] MEDS: rifAXIMin 550 MG TABLET PO SCH (21:03)
[2020-06-14] MEDS: OCTREOTIDE ACETATE 500 MCG in 0.9 % SODIUM CHLORIDE 100 ML IV SCH ×2 (02:42→14:05)
[2020-06-14 07:24] LABS: Hematocrit (blood only) 23.1 % (42-52); Hemoglobin 8.4 g/dL (14.0-18.0); Mean Corpuscular Hemoglobin 41.2 pg (25-34); Mean Corpuscular Hgb Conc 36.4 g/dL (32-36); Mean Corpuscular Volume 113.2 fL (80-100); Mean Platelet Volume 8.3 fL (7.4-10.4); Platelet Count 68 K/uL (130-400); RDW Standard Deviation 56.3 fL (36.4-46.3); Red Blood Count 2.04 M/uL (4.7-6.1); White Blood Count 8.63 K/uL (4.8-10.8)
[2020-06-14 07:32] LABS: Prothrombin Time 20.2 Seconds (9.0-12.0)
[2020-06-14 08:18] LABS: Alanine Aminotransferase 29 U/L (12-78); Albumin Level 1.9 gm/dl (3.4-5.0); Alkaline Phosphatase 37 U/L (45-117); Aspartate Aminotransferase 46 U/L (15-37); Blood Urea Nitrogen 46 mg/dl (7-18); Calcium 8.3 mg/dl (8.5-10.1); Carbon Dioxide 27 mmol/L (21-32); Chloride 88 mmol/L (98-107); Glucose 107 mg/dl (70-99); Magnesium 2.3 mg/dl (1.8-2.4); Potassium 3.8 mmol/L (3.5-5.1); Sodium 125 mmol/L (136-145)
[2020-06-14] MEDS: rifAXIMin 550 MG TABLET PO SCH ×2 (08:21→20:11)
[2020-06-14] MEDS: PANTOprazole 40 MG in SYRINGE 0 ML IV SCH ×2 (08:25→20:11)
[2020-06-14] MEDS: ZINC SULFATE 220 MG CAPSULE PO SCH (08:25)
[2020-06-14] MEDS: buprenorphine HCL 2 MG SUBL SL SCH ×3 (08:37→20:17)
[2020-06-14] MEDS: LACTULOSE SYRUP 20 GM/30 ML UDC PO SCH ×3 (08:40→20:17)
[2020-06-14] MEDS ORDERED: LORazepam 0.5 MG/1 ML VIAL IV STA (09:33)
--- NOTE | 2020-06-14 09:55 | History & Physical Bridge Note ---
Date of Service June 14, 2020 History & Physical Bridge Note I have examined the patient, reviewed the History & Physical and in the interval since the performance of the History & Physical I have noted the following changes of clinical significance: no changes noted Proceed with EGD. risks/benefits and procedure discussed with patient, who agrees to proceed The procedure is medically necessary and emergent/urgent due to suspected GI bleed in the setting of severe decompensated cirrhosis (MELD>30).
[2020-06-14] MEDS: PHYTONADIONE 5 MG in SODIUM CHLORIDE 0.9% 50 ML IV SCH (10:06)
[2020-06-14] MEDS: hydrOXYzine HCl 10 MG TAB PO PRN (11:16)
--- NOTE | 2020-06-14 11:49 | Communication Note ---
Date of Service: June 14, 2020 patient ate food 30 minutes ago and had multiple sips of water. Discussed with anesthesia and joint decision made to cancel procedure at this time. Discussed with the patient the importance of obtaining proper liver care as his cirrhosis is severe, and he is amenable to transfer to tertiary care center at this time. Recommend urgent transfer to tertiary care center at this time. Lamont Rodriguez MD Gastroenterology
[2020-06-15] MEDS: OCTREOTIDE ACETATE 500 MCG in 0.9 % SODIUM CHLORIDE 100 ML IV SCH ×2 (00:16→07:27)
[2020-06-15 07:16] LABS: Hematocrit (blood only) 22.8 % (42-52); Hemoglobin 8.3 g/dL (14.0-18.0); Mean Corpuscular Hemoglobin 41.5 pg (25-34); Mean Corpuscular Hgb Conc 36.4 g/dL (32-36); RDW Coefficient of Variation 14.2 % (11.5-14.5); RDW Standard Deviation 58.7 fL (36.4-46.3); White Blood Count 13.69 K/uL (4.8-10.8)
[2020-06-15 07:18] LABS: Mean Platelet Volume 8.2 fL (7.4-10.4); Platelet Count 74 K/uL (130-400)
[2020-06-15 07:27] LABS: INR 1.9 (0.9-1.1); Prothrombin Time 19.5 Seconds (9.0-12.0)
[2020-06-15] MEDS: buprenorphine HCL 2 MG SUBL SL SCH ×2 (07:27→13:05)
[2020-06-15] MEDS: rifAXIMin 550 MG TABLET PO SCH (07:27)
[2020-06-15] MEDS: ZINC SULFATE 220 MG CAPSULE PO SCH (07:27)
[2020-06-15] MEDS: LACTULOSE SYRUP 20 GM/30 ML UDC PO SCH ×2 (07:27→13:06)
[2020-06-15] MEDS: PANTOprazole 40 MG in SYRINGE 0 ML IV SCH (07:27)
[2020-06-15] MEDS: hydrOXYzine HCl 10 MG TAB PO PRN (07:59)
[2020-06-15 08:10] LABS: Alanine Aminotransferase 29 U/L (12-78); Albumin Level 1.9 gm/dl (3.4-5.0); Alkaline Phosphatase 32 U/L (45-117); Aspartate Aminotransferase 42 U/L (15-37); Bilirubin,Total 25.6 mg/dl (0.2-1); Blood Urea Nitrogen 54 mg/dl (7-18); Calcium 7.6 mg/dl (8.5-10.1); Carbon Dioxide 26 mmol/L (21-32); Chloride 87 mmol/L (98-107); Glucose 122 mg/dl (70-99); Magnesium 2.5 mg/dl (1.8-2.4); Potassium 3.9 mmol/L (3.5-5.1); Sodium 122 mmol/L (136-145)
--- NOTE | 2020-06-15 15:44 | Discharge Summary ---
Date of Service June 15, 2020 Principal Diagnosis Acute hepatic failure Discharge Exam Constitutional WD/WN, vitals as above Eyes EOM intact bilaterally; sclerae not anicteric (Icteric) ENMT external ear and nose normal, oropharynx normal Neck trachea midline, no thyromegaly normal visual inspection Respiratory normal respiratory effort, lungs clear to auscultation no respiratory distress Cardiovascular Rate/Rhythm: regular rate and + tachycardic Heart Sounds: normal S1 and normal S2 Extremities: no edema Gastrointestinal (Abdomen) Inspection/Auscultation: + abdomen distended and + hypoactive bowel sounds; + abdomen abnormal to inspection Percussion/Palpation: abdomen soft and + ascites; abdomen nontender, no guarding and abdomen not rigid Musculoskeletal no cyanosis or clubbing, extremities motor strength 5/5 Skin no rashes, warm and dry + jaundice Neurologic moves all extremities and awake Psychiatric Orientation: alert, oriented to person and cooperative Discharge Data Allergies Allergy/AdvReac Type Severity Reaction Status Date / Time naloxone AdvReac Intermediate SEE COMMENT Verified 06/11/20 23:36 Consultations 06/12/20 01:54 ED Decision to Admit Stat 06/12/20 03:28 Consult Gastroenterology Routine 06/12/20 03:33 Consult Case Management - Discharge Planning Routine 06/14/20 13:49 Consult Palliative Care Routine 06/14/20 16:30 Burn CD for patient Routine Procedures Performed Operation Date: 06/13/20 09:45 <No data on this case meets the specified criteria> Operation Date: 06/14/20 08:15 <No data on this case meets the specified criteria> Ordered Studies 06/12/20 05:25 US duplex portal hepatic veins Urgent 06/13/20 14:00 US paracentesis abd w/image Routine Hospital Course (1) Acute hepatic failure: Acute hepatic failure with Tbili of 30.5 on admission and INR of 2.5. Presently Tbili is 24 and INR is 2.0. - Concern for SBP and abx were started on 06/11. - Paracentesis on 06/13 showed PMNs of 80, though this was 48 hours after antibiotics. - Presently on ceftriaxone, octreotide, PPI IV BID - Asterixis noted by GI on 06/13 -> Started lactulose, rifaximin, and zinc. - EGD planned for 06/14, but the patient went down and told anesthesia he had e aten (which was not true). At that time, anesthesia cancelled the case, and he was sent back to his room. (2) Hepatorenal syndrome: Baseline Cr ~0.9 in 03/2020. - Cr is delayed for us because of his high bilirubin, but last returned value was 1.75 for 06/12/2020. BUN now up to 46. (3) Hyponatremia: Hypervolemic hyponatremia. - Will fluid restrict and allow to have Na. - Will get fluid osms tomorrow morning. (4) Hepatitis C: HCV Ab was positive in 01/2020, but no RNA detected indicating cleared infection. - Further work-up/treatment pursuant to outpatient follow up (5) Abdominal ascites: Due to his cirrhosis. - Moderate ascites seen on ultrasound on 06/12 - As above, presently declining EGD & transfer. (6) Lower extremity edema: Due to his cirrhosis. - Holding diuretics at this time (7) Alcohol abuse: Reports last drink was prior to last hospitalization in 03/2020. - Monitor (8) Substance abuse in remission: No withdrawal at this time. - Continue buprenorphine daily (9) DVT prophylaxis: Total Time Total Time Spent Total Time Spent (In Minutes): 35 Discharge Plan Discharge Items Patient Disposition: Transfer Acute Care Hospital Reason For Visit: ACUTE HEPATIC FAILURE Discharge Diagnosis: Acute hepatic failure and hepatorenal syndrome Activity: Resume your previous activity Non-emergency contact: Primary Care Provider Call non-emergency contact if: your pain is not controlled Follow-up/Referrals: PCP,NO [Primary Care Provider] - Diet: Low Sodium (2gm) Addtl Attending Provider Instructions: Admitted for acute hepatic failure. Tbili 30, improved to 24. Cr had to be sent out, but as of 06/12 was 1.75 from baseline of 0.9. Patient took 2 days to agree to paracentesis, but when done, only showed PMNs of 80. No growth on culture, but he had been on ceftriaxone since admission. He went down for EGD on 06/14, but then told anesthesia he had eaten (which he had not), and the procedure was cancelled. Hgb baseline is ~10.5, but has been stable around 8.5 x 4 days here. Pending Studies at Discharge: No Stand-Alone Forms: My [facility] Skilled Items Patient informed of condition?: Yes DNR: No Discharge Level of Care: Other Communicable Disease: No Discharge Prognosis: Deteriorating Lines: Peripheral IV Urinary Catheter: No Medications and DC Order Prescriptions: Continued buprenorphine HCl 8 mg Tablet, Sublingual 12 mg SUBLINGUAL DAILY RF: 0 Discharge Orders: Discharge Order (Routine); Ordered 06/14/20 Ordered By: Vinay Perez Admission Data Admit Date/Time: 06/12/20 03:31 Attending Provider: Vinay Perez Admit Provider: Leon Cantrell I. Primary Care Provider: PCP,NO Other Providers: Vinay Perez ; Sierra Cantrell ; Wanda Rae ; Cathleen Gaytan Other Interventions: Discharge Summary Assessment (RN) Last Done: 06/15/20 08:42 Coding Level of Care Code D/C Day Management >30 mins Diagnoses Acute hepatic failure K72.00 Hepatorenal syndrome K76.7 Hyponatremia E87.1 Hepatitis C B19.20 Hepatic coma status: without hepatic coma Viral hepatitis chronicity: unspecified Abdominal ascites R18.8 Lower extremity edema R60.0 Alcohol abuse F10.10 Substance abuse in remission F19.11 DVT prophylaxis Z29.9
--- NOTE | 2020-06-15 15:46 | Hospitalist Progress Note ---
Date of Service June 14, 2020 Assessment & Plan (1) Acute hepatic failure: Acute hepatic failure with Tbili of 30.5 on admission and INR of 2.5. Presently Tbili is 24 and INR is 2.0. - Concern for SBP and abx were started on 06/11. - Paracentesis on 06/13 showed PMNs of 80, though this was 48 hours after antibiotics. - Presently on ceftriaxone, octreotide, PPI IV BID - Asterixis noted by GI on 06/13 -> Started lactulose, rifaximin, and zinc. - EGD planned for 06/14, but the patient went down and told anesthesia he had eaten (which was not true). At that time, anesthesia cancelled the case, and he was sent back to his room. (2) Hepatorenal syndrome: Baseline Cr ~0.9 in 03/2020. - Cr is delayed for us because of his high bilirubin, but last returned value was 1.75 for 06/12/2020. BUN now up to 46. (3) Hyponatremia: Hypervolemic hyponatremia. - Will fluid restrict and allow to have Na. - Will get fluid osms tomorrow morning. (4) Hepatitis C: HCV Ab was positive in 01/2020, but no RNA detected indicating cleared infection. - Further work-up/treatment pursuant to outpatient follow up (5) Abdominal ascites: Due to his cirrhosis. - Moderate ascites seen on ultrasound on 06/12 - As above, presently declining EGD & transfer. (6) Lower extremity edema: Due to his cirrhosis. - Holding diuretics at this time (7) Alcohol abuse: Reports last drink was prior to last hospitalization in 03/2020. - Monitor (8) Substance abuse in remission: No withdrawal at this time. - Continue buprenorphine daily (9) DVT prophylaxis: Admission and Anticipated Discharge Date Admission Date: June 12, 2020 Subjective Reports no fevers/chills, chest pain, shortness of breath, abdominal pain, nausea, or vomiting. Physical Exam Constitutional: WD/WN, vitals as above Eyes: EOM intact bilaterally; no conjunctival abnormality ENMT: external ear and nose normal, oropharynx normal Neck: trachea midline, no thyromegaly normal visual inspection Respiratory: normal respiratory effort, lungs clear to auscultation no respiratory distress Cardiovascular: RRR, no murmur, no edema Gastrointestinal (Abdomen): Inspection/Auscultation: abdomen normal to inspection; abdomen not distended Musculoskeletal: no cyanosis or clubbing, extremities motor strength 5/5 Skin: no rashes, warm and dry Neurologic: moves all extremities and awake Psychiatric: Orientation: alert, oriented to person and cooperative Results & Data Results & Data ([facility]) Vital Signs (Past 12 Hours) Vital Signs Temp Pulse Pulse Resp BP BP Pulse Ox 06/15/20 11:27 37.0 C 90 18 102/49 L 95 06/15/20 08:42 36.8 C 98 H 20 111/49 L 91 06/15/20 07:51 36.8 C 98 H 20 111/49 L 91 06/15/20 06:59 89 06/15/20 05:00 37 C 101 H 16 112/66 93 PG Care Time/CCT Total # of Minutes Spent Total Time Spent with Patient: Total time spent is greater than 50% in coordination of care (as documented) at patient's floor/unit and/or counseling patient: Coding Level of Care Code 45657 Subseq Hosp Care Lvl 2 Diagnoses Acute hepatic failure K72.00 Hepatorenal syndrome K76.7 Hyponatremia E87.1 Hepatitis C B19.20 Hepatic coma status: without hepatic coma Viral hepatitis chronicity: unspecified Abdominal ascites R18.8 Lower extremity edema R60.0 Alcohol abuse F10.10 Substance abuse in remission F19.11 DVT prophylaxis Z29.9 (1) Hepatitis C Hepatic coma status: without hepatic coma Viral hepatitis chronicity: unspecified Qualified Code(s): B19.20 - Unspecified viral hepatitis C without hepatic coma
== END 2020-06-15 14:08 | disposition short-term general hospital (02) | DRG 441 ==
LOC: ED 22:58 → 2W 06-12 03:31 → SUATTDRO 06-12 03:31 → 2W 06-12 04:58

== ENCOUNTER 2020-08-20 09:36 | Inpatient (IN) ==
[2020-08-20] MEDS ORDERED: SODIUM CHLORIDE 0.9% 1000ML 1,000 ML IV ONE (09:45)
--- NOTE | 2020-08-20 09:54 | Emergency Department Note ---
Impression & Plan Hyperammonemia, Hyperbilirubinemia, Hepatic encephalopathy, Acute hyponatremia ED Provider Note NAME: MIKI MERCADO AGE: 40 SEX: M : 1980 ARRIVES VIA: Ambulance INFORMANT: Patient, prehospital personnel ED PROVIDER(S): Haim Dietz DO CHIEF COMPLAINT: Generalized weakness HPI: The patient is a 40-year-old male who presented to the emergency department by ambulance for an evaluation of generalized weakness and dizziness. The patient has a history of chronic alcohol abuse and substance abuse. He also has hepatitis C. The patient states that he was recently an inpatient in our facility for liver abnormalities as well as hepatic encephalopathy. He requested to be discharged to home 3 days ago because he wanted to be with family. Since that time he has noticed increased generalized weakness as well as dizziness upon standing. He denies having any headache. He states he did not fall or strike his head. He denies having any fever. He states that he has been compliant with his outpatient medication regimen and has not been using alcohol or drugs. The patient states he was started on steroids prior to dis charge because of abnormal liver function studies. The patient states he also notices lower extremity swelling. He has noticed a slight cough which is not productive. He denies any exposure to COVID-19. ROS: See above HPI for pertinent positives & negatives. A total of 10 systems reviewed and were otherwise negative. PAST MEDICAL HISTORY: See Below PAST SURGICAL HISTORY: See Below FAMILY HISTORY: See Below SOCIAL HISTORY: See Below HOME MEDICATIONS: See Below ALLERGIES: See Below VITALS: See Below PHYSICAL EXAMINATION: GENERAL: The patient is awake and alert. He does not appear to be anxious or uncomfortable. EYES: The conjunctivae are icteric. The pupils are round and reactive. EARS, NOSE, MOUTH AND THROAT: The nose is without any evidence of any deformity. Mucous membranes are dry NECK: The neck is nontender and supple. RESPIRATORY: Diminished breath sounds are noted in the left base. There were no tachypnea or conversational dyspnea. CARDIOVASCULAR: Regular rate and rhythm was noted to auscultation. Systolic murmur was suggested. GASTROINTESTINAL: The abdomen is soft. Abdomen is nontender. MUSCULOSKELETAL/EXTREMITIES: There is no evidence of gross deformity full range of motion is noted in the hips and shoulders. SKIN: Pedal edema was noted bilaterally. Chronic venous stasis changes were noted bilaterally. NEUROLOGIC: Patient is awake alert and oriented x3. No facial droop was noted. Strength was symmetric. MEDICAL DECISION MAKING: The patient is a 40-year-old male who presented to the emergency department for an evaluation of generalized weakness. The patient has a history of hepatic encephalopathy. The patient has known liver problems. He has a history of cirrhosis. He is currently not on a transplant list because there are concerns about his substance abuse and the length of his sobriety. The patient continues to have worsening jaundice. He also continues to have an elevation in his white blood cell count. I discussed the patient's laboratory and radiographic studies with him. He was treated with IV fluids in the emergency department. Blood cultures were sent. Because of his laboratory abnormalities I discussed this case with the on-call [facility] hospitalist. They have agreed to evaluate the patient in the emergency department for further management and disposition. Triage Nursing notes reviewed. Prior medical records reviewed Vital Signs: reviewed and remarkable for no significant abnormalities Differential diagnosis: Infection, dehydration, metabolic abnormality, hypo/hyperglycemia, electrolyte disturbance, anemia, hypoxia, cardiac sources, intracerebral event, toxicologic, neurologic, as well as other pathologies. ER treatment provided: See below Diagnostics interpreted by me: ECG: EKG was obtained in the emergency department. My interpretation is normal sinus rhythm at 61 bpm. There was no ectopy. Apical and low lateral ST depressions were noted. This was compared to a tracing from August 092020. The ST segment abnormalities are new compared to the previous tracing. Cardiac Monitoring: An order was placed for continuous cardiac monitoring. The monitor shows a rate of 80 bpm with sinus rhythm. Laboratory studies: As stated above and show below. Imaging studies: See below Consultation(s): 1225: I discussed this case with Dr. Kennedy [facility]. Past Med/Surg History Medical History Abdominal ascites Alcohol withdrawal Alcoholic hepatitis Coagulopathy Heart valve regurgitation Hepatitis C Hyperammonemia Hyponatremia Leg swelling Pancytopenia Smoker Substance abuse in remission Thrombocytopenia Surgical History No pertinent past surgical history Family History Grandfather (Paternal) Myocardial infarction Father Diabetes Denies family history of Ovarian cancer Prostate cancer Breast cancer Colorectal cancer Social History Smoking Status: Former smoker Tobacco Type: Cigarettes Age Started Using Tobacco: 14; packs per day: 1; Years Smoked: 26; Cigarettes Per Day: 1 pack or less; Second Hand Exposure: Yes; Hx Alcohol Use: No Hx Substance Use: No Preferred Language: Khmer Communication Ability: Effective Visual Impairment: No Limitations Hearing Ability: Normal General Agent Required: No Beliefs That Will Affect Care: None marital status: Single Current Living Situation: Alone current occupational status: unemployed How many Children do You have: 2 Feels Safe at Home: Yes Childhood Exposure to Second-Hand Smoke: Yes Diet Comment: high protein caffeine: No during the past year weight has: decreased > 10 lbs Dental Care, Regularly: No Physical Activity Frequency: Daily Seatbelt Use: always Sunscreen Use: Yes Assistive Devices: None Allergies Allergies Allergy/AdvReac Type Severity Reaction Status Date / Time naloxone Allergy Unknown Abdominal Verified 08/20/20 11:34 cramping, sore throat and a headache Home Meds Home Medications Medication Instructions Recorded Confirmed buprenorphine HCl 8 mg sublingual 12 mg SUBLINGUAL DAILY tab 07/13/20 08/20/20 tablet hydroxyzine HCl 25 mg PO HS PRN 08/04/20 08/20/20 Previous Rx's Medication Instructions Recorded lactulose 10 gram/15 mL oral 10 g PO QID #946 ml 07/13/20 solution rifaximin 550 mg tablet 550 mg PO BID #60 tab 07/13/20 furosemide 80 mg PO DAILY #30 tab 08/17/20 folic acid 1 mg tablet 1 mg PO DAILY #90 tab 08/18/20 nadolol 20 mg tablet 20 mg PO DAILY #90 tab 08/18/20 ondansetron HCl 4 mg tablet 4 mg PO Q8H PRN #90 tab 08/18/20 pantoprazole 40 mg tablet,delayed 40 mg PO QAM #90 tab 08/18/20 release sennosides 8.6 mg tablet 8.6 mg PO DAILY #90 tab 08/18/20 thiamine HCl (vitamin B1) 100 mg 100 mg PO DAILY #90 tab 08/18/20 tablet prednisolone 15 mg/5 mL oral See Rx Instructions PO DAILY #240 08/19/20 solution ml spironolactone 50 mg tablet 200 mg PO DAILY #90 tab 08/19/20 Results & Data (ED) Vital Signs Vital Signs - 24 hr 08/20/20 09:41 08/20/20 09:42 08/20/20 10:04 Temperature 37.1 C Temperature Source Oral Pulse Rate 69 71 65 Pulse Rate [Right Finger] 71 Pulse Rate from SpO2 Sensor 65 Pulse Rhythm [Right Finger] Pulse Strength [Right Finger] Respiratory Rate 15 21 15 Respiratory Effort / Characteristics Respiratory Depth Respiratory Pattern Blood Pressure 107/78 107/78 132/81 Blood Pressure [Right Arm] 107/78 Blood Pressure Mean 87 87 98 Blood Pressure Mean [Right Arm] 87 Blood Pressure Position Sitting Blood Pressure Position [Right Arm] Lying Pulse Oximetry 97 97 97 Oxygen Delivery Method Room Air Room Air Room Air Sepsis Recent Fever Within 48 Hours Yes Sepsis New/Unexplained Change in Mental Status No Sepsis Action Taken by Nursing Physician Notified 08/20/20 10:15 08/20/20 10:21 08/20/20 10:25 Temperature Temperature Source Pulse Rate 62 71 Pulse Rate [Right Finger] Pulse Rate from SpO2 Sensor Pulse Rhythm [Right Finger] Pulse Strength [Right Finger] Respiratory Rate 21 20 21 Respiratory Effort / Characteristics Non-Labored Spontaneous Respiratory Depth Respiratory Pattern Blood Pressure 128/75 Blood Pressure [Right Arm] Blood Pressure Mean 92 Blood Pressure Mean [Right Arm] Blood Pressure Position Blood Pressure Position [Right Arm] Pulse Oximetry 97 97 Oxygen Delivery Method Room Air Room Air Room Air Sepsis Recent Fever Within 48 Hours Sepsis New/Unexplained Change in Mental Status Sepsis Action Taken by Nursing 08/20/20 10:30 08/20/20 10:45 08/20/20 11:00 Temperature 37.1 C Temperature Source Oral Pulse Rate 72 58 L 61 Pulse Rate [Right Finger] 71 Pulse Rate from SpO2 Sensor 62 59 L 61 Pulse Rhythm [Right Finger] Pulse Strength [Right Finger] Respiratory Rate 13 10 L 11 L Respiratory Effort / Characteristics Non-Labored Spontaneous Non-Labored Spontaneous Respiratory Depth Respiratory Pattern Blood Pressure 125/76 122/72 122/70 Blood Pressure [Right Arm] 107/78 Blood Pressure Mean 92 88 87 Blood Pressure Mean [Right Arm] 87 Blood Pressure Position Blood Pressure Position [Right Arm] Lying Pulse Oximetry 96 96 97 Oxygen Delivery Method Room Air Room Air Room Air Sepsis Recent Fever Within 48 Hours Sepsis New/Unexplained Change in Mental Status Sepsis Action Taken by Nursing 08/20/20 11:15 08/20/20 11:30 08/20/20 11:45 Temperature Temperature Source Pulse Rate 63 63 61 Pulse Rate [Right Finger] Pulse Rate from SpO2 Sensor 63 63 63 Pulse Rhythm [Right Finger] Pulse Strength [Right Finger] Respiratory Rate 14 12 14 Respiratory Effort / Characteristics Non-Labored Spontaneous Respiratory Depth Respiratory Pattern Blood Pressure 118/72 122/71 117/67 Blood Pressure [Right Arm] Blood Pressure Mean 87 88 83 Blood Pressure Mean [Right Arm] Blood Pressure Position Blood Pressure Position [Right Arm] Pulse Oximetry 97 96 97 Oxygen Delivery Method Room Air Room Air Sepsis Recent Fever Within 48 Hours Sepsis New/Unexplained Change in Mental Status Sepsis Action Taken by Nursing 08/20/20 11:52 08/20/20 12:00 08/20/20 12:15 Temperature Temperature Source Pulse Rate 61 61 69 Pulse Rate [Right Finger] 61 Pulse Rate from SpO2 Sensor 62 61 68 Pulse Rhythm [Right Finger] Regular Pulse Strength [Right Finger] Normal Respiratory Rate 10 L 10 L 6 L Respiratory Effort / Characteristics Non-Labored Non-Labored Respiratory Depth Normal Respiratory Pattern Regular Blood Pressure 118/66 118/70 123/78 Blood Pressure [Right Arm] 118/66 Blood Pressure Mean 83 86 93 Blood Pressure Mean [Right Arm] 83 Blood Pressure Position Blood Pressure Position [Right Arm] Lying Pulse Oximetry 98 98 98 Oxygen Delivery Method Room Air Room Air Sepsis Recent Fever Within 48 Hours Sepsis New/Unexplained Change in Mental Status Sepsis Action Taken by Nursing 08/20/20 12:16 08/20/20 12:30 08/20/20 12:45 Temperature Temperature Source Pulse Rate 65 63 66 Pulse Rate [Right Finger] Pulse Rate from SpO2 Sensor 66 63 64 Pulse Rhythm [Right Finger] Pulse Strength [Right Finger] Respiratory Rate 11 L 12 18 Respiratory Effort / Characteristics Non-Labored Respiratory Depth Respiratory Pattern Blood Pressure 116/66 112/67 Blood Pressure [Right Arm] Blood Pressure Mean 82 82 Blood Pressure Mean [Right Arm] Blood Pressure Position Blood Pressure Position [Right Arm] Pulse Oximetry 97 97 97 Oxygen Delivery Method Room Air Sepsis Recent Fever Within 48 Hours Sepsis New/Unexplained Change in Mental Status Sepsis Action Taken by Nursing 08/20/20 13:00 08/20/20 13:15 08/20/20 13:19 Temperature Temperature Source Pulse Rate 72 62 Pulse Rate [Right Finger] Pulse Rate from SpO2 Sensor 70 Pulse Rhythm [Right Finger] Pulse Strength [Right Finger] Respiratory Rate 10 L 10 L Respiratory Effort / Characteristics Non-Labored Spontaneous Respiratory Depth Respiratory Pattern Blood Pressure 125/76 127/75 Blood Pressure [Right Arm] Blood Pressure Mean 92 92 Blood Pressure Mean [Right Arm] Blood Pressure Position Blood Pressure Position [Right Arm] Pulse Oximetry 98 96 Oxygen Delivery Method Room Air Sepsis Recent Fever Within 48 Hours Sepsis New/Unexplained Change in Mental Status Sepsis Action Taken by Correction Medications Current Medication List: was personally reviewed by me Laboratory Data Attestation: I reviewed the patient's lab results. Result diagrams: 08/20/20 10:02 08/20/20 10:02 Lab Results 08/20/20 08/20/20 08/20/20 Range/Units 10:02 10:02 10:02 WBC 26.67 H (4.8-10.8) K/uL RBC 2.96 L (4.7-6.1) M/uL Hgb 11.0 L (14.0-18.0) g/dL Hct 29.6 L (42-52) % MCV 100.0 (80-100) fL MCH 37.2 H (25-34) pg MCHC 37.2 H (32-36) g/dL RDW Std Deviation 66.4 H (36.4-46.3) fL RDW Coeff of Munir 18.0 H (11.5-14.5) % Plt Count 114 L (130-400) K/uL MPV 9.2 (7.4-10.4) fL Immature Gran % (Auto) 6.4 % Neut % (Auto) 87.1 % Lymph % (Auto) 3.2 % Mer[place] % (Auto) 2.8 % Eos % (Auto) 0.4 % Baso % (Auto) 0.1 % Neut # (Auto) 23.23 H (1.4-6.5) K/uL Lymph # (Auto) 0.85 L (1.2-3.4) K/uL [place] # (Auto) 0.75 H (0.11-0.59) K/uL Eos # (Auto) 0.11 (0-0.5) K/uL Baso # (Auto) 0.03 (0-0.2) K/uL Immature Gran # (Auto) 1.70 H (0.00-0.02) K/uL Acanthocytes (Spur) 3+ PT 20.5 H (9.0-12.0) Seconds INR 2.1 H (0.9-1.1) APTT 43.3 H (21.0-31.0) Seconds PTT Ratio 1.6 Sodium 120 L (136-145) mmol/L Potassium 4.9 (3.5-5.1) mmol/L Chloride 85 L (98-107) mmol/L Carbon Dioxide 27 (21-32) mmol/L Anion Gap 8.0 (3-11) BUN 32 H (7-18) mg/dl Creatinine (0.6-1.4) mg/dl Est Cr Clr Drug Dosing Not Reportable Est GFR ( Amer) Not Reportable Est GFR (Non-Af Amer) Not Reportable BUN/Creatinine Ratio TNP Glucose 131 H (70-99) mg/dl Osmolality (280-300) mOsm/kg Lactate (0.4-2.0) mmol/L Calcium 9.5 (8.5-10.1) mg/dl Magnesium 2.3 (1.8-2.4) mg/dl Total Bilirubin 31.8 H (0.2-1) mg/dl Direct Bilirubin 21.8 H (0-0.2) mg/dl AST 123 H (15-37) U/L ALT 103 H (12-78) U/L Alkaline Phosphatase 172 H (45-117) U/L Ammonia (11-32) umol/L Troponin I < 0.015 (0-0.045) ng/ml Total Protein (6.4-8.2) gm/dl Albumin 3.1 L (3.4-5.0) gm/dl Globulin TNP Albumin/Globulin Ratio TNP Procalcitonin (0-0.5) ng/ml Urine Color Urine Appearance (Clear) Urine pH (4.5-7.5) Ur Specific Justice (1.000-1.030) Urine Protein (Negative) Urine Glucose (UA) (Negative) Urine Ketones (Negative) Urine Blood (Negative) Urine Nitrite (Negative) Urine Bilirubin (Negative) Urine Urobilinogen (Negative) Ur Leukocyte Esterase (Negative) Urine WBC (Auto) (0-5) /hpf Urine RBC (Auto) (0-4) /hpf U Hyaline Cast (Auto) (0-5) /lpf U Epithel Cells (Auto) (0-5) /lpf Urine Bacteria (Auto) (Negative) Ethyl Alcohol mg/dL (0-3) mg/dl 08/20/20 08/20/20 08/20/20 Range/Units 10:02 10:02 10:12 WBC (4.8-10.8) K/uL RBC (4.7-6.1) M/uL Hgb (14.0-18.0) g/dL Hct (42-52) % MCV (80-100) fL MCH (25-34) pg MCHC (32-36) g/dL RDW Std Deviation (36.4-46.3) fL RDW Coeff of Munir (11.5-14.5) % Plt Count (130-400) K/uL MPV (7.4-10.4) fL Immature Gran % (Auto) % Neut % (Auto) % Lymph % (Auto) % Mer[place] % (Auto) % Eos % (Auto) % Baso % (Auto) % Neut # (Auto) (1.4-6.5) K/uL Lymph # (Auto) (1.2-3.4) K/uL Merced # (Auto) (0.11-0.59) K/uL Eos # (Auto) (0-0.5) K/uL Baso # (Auto) (0-0.2) K/uL Immature Gran # (Auto) (0.00-0.02) K/uL Acanthocytes (Spur) PT (9.0-12.0) Seconds INR (0.9-1.1) APTT (21.0-31.0) Seconds PTT Ratio Sodium (136-145) mmol/L Potassium (3.5-5.1) mmol/L Chloride (98-107) mmol/L Carbon Dioxide (21-32) mmol/L Anion Gap (3-11) BUN (7-18) mg/dl Creatinine (0.6-1.4) mg/dl Est Cr Clr Drug Dosing Est GFR ( Amer) Est GFR (Non-Af Amer) BUN/Creatinine Ratio Glucose (70-99) mg/dl Osmolality 271 L (280-300) mOsm/kg Lactate 1.6 (0.4-2.0) mmol/L Calcium (8.5-10.1) mg/dl Magnesium (1.8-2.4) mg/dl Total Bilirubin (0.2-1) mg/dl Direct Bilirubin (0-0.2) mg/dl AST (15-37) U/L ALT (12-78) U/L Alkaline Phosphatase (45-117) U/L Ammonia (11-32) umol/L Troponin I (0-0.045) ng/ml Total Protein (6.4-8.2) gm/dl Albumin (3.4-5.0) gm/dl Globulin Albumin/Globulin Ratio Procalcitonin 0.11 (0-0.5) ng/ml Urine Color Urine Appearance (Clear) Urine pH (4.5-7.5) Ur Specific Justice (1.000-1.030) Urine Protein (Negative) Urine Glucose (UA) (Negative) Urine Ketones (Negative) Urine Blood (Negative) Urine Nitrite (Negative) Urine Bilirubin (Negative) Urine Urobilinogen (Negative) Ur Leukocyte Esterase (Negative) Urine WBC (Auto) (0-5) /hpf Urine RBC (Auto) (0-4) /hpf U Hyaline Cast (Auto) (0-5) /lpf U Epithel Cells (Auto) (0-5) /lpf Urine Bacteria (Auto) (Negative) Ethyl Alcohol mg/dL (0-3) mg/dl 08/20/20 08/20/20 08/20/20 Range/Units 10:12 10:12 13:14 WBC (4.8-10.8) K/uL RBC (4.7-6.1) M/uL Hgb (14.0-18.0) g/dL Hct (42-52) % MCV (80-100) fL MCH (25-34) pg MCHC (32-36) g/dL RDW Std Deviation (36.4-46.3) fL RDW Coeff of Munir (11.5-14.5) % Plt Count (130-400) K/uL MPV (7.4-10.4) fL Immature Gran % (Auto) % Neut % (Auto) % Lymph % (Auto) % [place] % (Auto) % Eos % (Auto) % Baso % (Auto) % Neut # (Auto) (1.4-6.5) K/uL Lymph # (Auto) (1.2-3.4) K/uL [place] # (Auto) (0.11-0.59) K/uL Eos # (Auto) (0-0.5) K/uL Baso # (Auto) (0-0.2) K/uL Immature Gran # (Auto) (0.00-0.02) K/uL Acanthocytes (Spur) PT (9.0-12.0) Seconds INR (0.9-1.1) APTT (21.0-31.0) Seconds PTT Ratio Sodium (136-145) mmol/L Potassium (3.5-5.1) mmol/L Chloride (98-107) mmol/L Carbon Dioxide (21-32) mmol/L Anion Gap (3-11) BUN (7-18) mg/dl Creatinine (0.6-1.4) mg/dl Est Cr Clr Drug Dosing Est GFR ( Amer) Est GFR (Non-Af Amer) BUN/Creatinine Ratio Glucose (70-99) mg/dl Osmolality (280-300) mOsm/kg Lactate (0.4-2.0) mmol/L Calcium (8.5-10.1) mg/dl Magnesium (1.8-2.4) mg/dl Total Bilirubin (0.2-1) mg/dl Direct Bilirubin (0-0.2) mg/dl AST (15-37) U/L ALT (12-78) U/L Alkaline Phosphatase (45-117) U/L Ammonia 41.8 H (11-32) umol/L Troponin I (0-0.045) ng/ml Total Protein (6.4-8.2) gm/dl Albumin (3.4-5.0) gm/dl Globulin Albumin/Globulin Ratio Procalcitonin (0-0.5) ng/ml Urine Color Dark Yellow Urine Appearance Clear (Clear) Urine pH 5.5 (4.5-7.5) Ur Specific Justice 1.017 (1.000-1.030) Urine Protein Negative (Negative) Urine Glucose (UA) Negative (Negative) Urine Ketones Negative (Negative) Urine Blood Negative (Negative) Urine Nitrite Positive A (Negative) Urine Bilirubin 3+ H (Negative) Urine Urobilinogen Negative (Negative) Ur Leukocyte Esterase Trace H (Negative) Urine WBC (Auto) 0 (0-5) /hpf Urine RBC (Auto) 0-4 (0-4) /hpf U Hyaline Cast (Auto) 0 (0-5) /lpf U Epithel Cells (Auto) 0-5 (0-5) /lpf Urine Bacteria (Auto) Negative (Negative) Ethyl Alcohol mg/dL < 3.0 (0-3) mg/dl Administered Medications Discontinued Medications Sodium Chloride (Nss 1000ml) 1,000 mls @ 999 mls/hr IV .[id number] ONE Stop: 08/20/20 10:45 Last Infusion: 08/20/20 12:18 Dose: 0 mls/hr Documented by: [id number] Admin: 08/20/20 10:13 Dose: 999 mls/hr Documented by: [id number] Imaging Data Radiologist's Impression: Patient: MIKI MERCADO Admit Date: 08/20/20 MR#: [id number] Address1: [address] [place] [address] Acct ID:[id number] Address2: Date: 1980 [facility] Zip: [place] [address] Age: 40 Location: ED Sex: M Room/Bed: Att Phy: Diagnosis: ILLNESS Rebecca Phy: Gayla Pacheco MD Service Date: 08/20/20 [facility] Phy: Interpreting Phy: Lalito Mccarty Admit Phy: Ordering Phy: Haim Dietz DO cc: ~ XR chest 1V portable HISTORY: 40 years-old Male SEPSIS acute sepsis COMPARISON: Chest radiograph 06/11/2020 TECHNIQUE: Portable AP view of the chest FINDINGS: Cardiomediastinal and hilar silhouettes are within normal limits. No pneumothorax, pleural effusion, airspace consolidation or overt pulmonary edema. Bones of the chest appear grossly intact. IMPRESSION: No acute process. ACT 112: Negative or not required by law. The above report was generated using voice recognition software. It may contain grammatical, syntax or spelling errors. Electronically signed by: Jake Mccarty M.D. 08/20/2020 10:37 AM Dictated: 08/20/20 1036 Transcribed: 08/20/20 1036 Discharge Plan Visit Data Chief Complaint: Illness ED Provider: Haim Dietz Discharge Problem: Hyperammonemia, Hyperbilirubinemia, Hepatic encephalopathy, Acute hyponatremia Patient Disposition: Being Evaluated by Hospitalist Condition: Good Forms Stand Alone Forms: My [facility] Prescriptions Prescriptions: No Action folic acid 1 mg tablet 1 mg PO DAILY Qty: 90 RF: 1 nadolol 20 mg tablet 20 mg PO DAILY Qty: 90 RF: 1 ondansetron HCl [Zofran] 4 mg tablet 4 mg PO Q8H PRN (Reason: Nausea And Vomiting) Qty: 90 RF: 1 pantoprazole 40 mg tablet,delayed release (DR/EC) 40 mg PO QAM Qty: 90 RF: 1 sennosides [senna] 8.6 mg tablet 8.6 mg PO DAILY Qty: 90 RF: 1 thiamine HCl (vitamin B1) 100 mg tablet 100 mg PO DAILY Qty: 90 RF: 1 prednisolone 15 mg/5 mL solution See Rx Instructions PO DAILY Qty: 240 RF: 0 spironolactone 50 mg tablet 200 mg PO DAILY Qty: 90 RF: 1 lactulose 10 gram/15 mL solution 10 g PO QID Qty: 946 RF: 2 rifaximin 550 mg tablet 550 mg PO BID Qty: 60 RF: 2 buprenorphine HCl 8 mg tablet, sublingual 12 mg SUBLINGUAL DAILY RF: 0 hydroxyzine HCl 50 mg tablet 25 mg PO HS PRN (Reason: Anxiety) RF: 0 furosemide 80 mg Tablet 80 mg PO DAILY Qty: 30 RF: 0 Referrals Referrals: Gayla Pacheco MD [Primary Care Provider] -
[2020-08-20 10:13] LABS: Hematocrit (blood only) 29.6 % (42-52); Mean Corpuscular Hemoglobin 37.2 pg (25-34); Mean Corpuscular Hgb Conc 37.2 g/dL (32-36); Mean Platelet Volume 9.2 fL (7.4-10.4); Platelet Count 114 K/uL (130-400); RDW Standard Deviation 66.4 fL (36.4-46.3); Red Blood Count 2.96 M/uL (4.7-6.1); White Blood Count 26.67 K/uL (4.8-10.8)
[2020-08-20] MEDS: ONDANSETRON INJ 2 MG/ML 2 ML VIAL IV STA ×2 (10:13→14:02)
[2020-08-20 10:23] LABS: INR 2.1 (0.9-1.1); Partial Thromboplastin Ratio 1.6; Partial Thromboplastin Time 43.3 Seconds (21.0-31.0); Prothrombin Time 20.5 Seconds (9.0-12.0)
--- NOTE | 2020-08-20 10:38 | XRay Report ---
XR chest 1V portable HISTORY: 40 years-old Male SEPSIS acute sepsis COMPARISON: Chest radiograph 06/11/2020 TECHNIQUE: Portable AP view of the chest FINDINGS: Cardiomediastinal and hilar silhouettes are within normal limits. No pneumothorax, pleural effusion, airspace consolidation or overt pulmonary edema. Bones of the chest appear grossly intact. IMPRESSION: No acute process. ACT 112: Negative or not required by law. The above report was generated using voice recognition software. It may contain grammatical, syntax o r spelling errors. Electronically signed by: Jake Mccarty M.D. 08/20/2020 10:37 AM
[2020-08-20 10:45] LABS: Acanthocytes 3+; Basophils # (auto) 0.03 K/uL (0-0.2); Basophils % (auto) 0.1 %; Eosinophils # (auto) 0.11 K/uL (0-0.5); Eosinophils % (auto) 0.4 %; Immature Granulocytes % (auto) 6.4 %; Lymphocytes # (auto) 0.85 K/uL (1.2-3.4); Lymphocytes % (auto) 3.2 %; Monocytes # (auto) 0.75 K/uL (0.11-0.59); Monocytes % (auto) 2.8 %; Neutrophils # (auto) 23.23 K/uL (1.4-6.5); Neutrophils % (auto) 87.1 %
[2020-08-20 10:57] LABS: Alanine Aminotransferase 103 U/L (12-78); Albumin Level 3.1 gm/dl (3.4-5.0); Alkaline Phosphatase 172 U/L (45-117); Aspartate Aminotransferase 123 U/L (15-37); Bilirubin,Total 31.8 mg/dl (0.2-1); Blood Urea Nitrogen 32 mg/dl (7-18); Calcium 9.5 mg/dl (8.5-10.1); Carbon Dioxide 27 mmol/L (21-32); Chloride 85 mmol/L (98-107); Glucose 131 mg/dl (70-99); Magnesium 2.3 mg/dl (1.8-2.4); Potassium 4.9 mmol/L (3.5-5.1); Sodium 120 mmol/L (136-145); Troponin I < 0.015 ng/ml (0-0.045)
[2020-08-20 11:09] LABS: Bilirubin Direct 21.8 mg/dl (0-0.2)
--- NOTE | 2020-08-20 12:16 | Electrocardiogram Report ---
Test Reason : Blood Pressure : / mmHG Vent. Rate : 061 BPM Atrial Rate : 061 BPM P-R Int : 134 ms QRS Dur : 094 ms QT Int : 450 ms P-R-T Axes : 046 -15 039 degrees QTc Int : 453 ms Normal sinus rhythm Voltage criteria for left ventricular hypertrophy Nonspecific ST abnormality Abnormal ECG When compared with ECG of 09-AUG-2020 17:20, QRS axis Shifted right Confirmed by Haim uBnn ([id number]) on 08/20/2020 12:15:52 PM Referred By: REFERRED SELF Confirmed By:Haim Bunn
[2020-08-20] MEDS ORDERED: hydrOXYzine HCl 25 MG TAB PO PRN (13:11)
[2020-08-20] MEDS ORDERED: buprenorphine HCL 8 MG SUBL SL SCH (13:15)
[2020-08-20] MEDS ORDERED: prednisoLONE 15 MG/5 ML UDP PO SCH (13:15)
[2020-08-20 13:29] LABS: Appearance Urine Clear (Clear); Bacteria Urine Automated Negative (Negative); Blood Urine Negative (Negative); Cast Urine Automated 0 /lpf (0-5); Color Urine Dark Yellow; Epithelial Cell Urine Auto 0-5 /lpf (0-5); Glucose Urine UA Negative (Negative); Ketones Urine Negative (Negative); Leukocyte Esterase Urine Trace (Negative); Nitrite Urine Positive (Negative); Protein Urine Negative (Negative); RBC Urine Automated 0-4 /hpf (0-4); Specific Gravity Urine 1.017 (1.000-1.030); Urobilinogen Urine Negative (Negative); WBC Urine Automated 0 /hpf (0-5); pH Urine 5.5 (4.5-7.5)
[2020-08-20 13:32] LABS: Bilirubin Urine 3+ (Negative)
--- NOTE | 2020-08-20 14:49 | History & Physical Report ---
Date of Service August 20, 2020 Assessment & Plan (1) Hyperbilirubinemia: Acutely trending upwards, will repeat the liver ultrasound with duplex to evaluate for thrombus - Awaiting transfer to transplant center- [facility] transfer center patient accepted, waiting on bed - No acute interventions at this time (2) Acute hyponatremia: Sodium has been trending down, went from 130-125-120 on admission today. - USOMO 500, Spec grav 1.017, serum OSMO 217 - Hold Lasix and Aldactone for today - Free water restriction 1200cc - If increase in ascites and sodium can add back lasix first - Patient is asymptomatic at this time - if symptoms occur would consider 2cc/kg (150 cc) of 3% saline bolus and recheck 4-6 hours after (3) Hepatic encephalopathy: Patient currently normal mentation and appropriate - will need to continue lactulose dosing for 3-4 bowel movements per day - MELD 33- (BUILD AND DE[employer]OYMENT ENGINEER used from 3 days ago), this BU[employer] DE[employer]OYMENT ENGINEER is pending secondary to icterus - Continue steroids (4) Cirrhosis: Continue rifaxmin Naldolol for variceal prophylaxis as above (5) Leukocytosis: No evidence of acute infection-possibly due to steroid use. Is afebrile - Patient recently completed course of ceftriaxone for SBP prophylaxis--- no fluid available for paracentesis - remains without ascites and no abdominal pain - Blood cultures repeated - ECHO if able prior to discharge to evalaute for vegetations, although systolic murmur has been present prior as per notes from [facility] and had a normal echocardiogram in 06/2020. - Urine -0 WBC per HPF, trace LE, positive nit (6) Substance abuse: ETHO and IV drug abuse history now in remission - ETOH negative on admission - Remains on Suboxone Is attending intensive outpatient program (7) Hepatitis C: No acute needs - as above (8) Elevated INR: Related to liver failure - improving over time - no acute bleeding or need to treat - OK with VTE prophylaxis (9) Murmur: Systollic - ECHO as above - blood cultures pending. (10) Acute hepatic failure: As above Transplant center evaluation pending (11) Anemia: Hemoglobin 11.0 and improved from previous Continue folate Follow CBC (12) Thrombocytopenia: Platelets mildly low but improved from previous, secondary to cirrhosis Follow CBC (13) DVT prophylaxis: Heparin SQ Disposition-admit to medical/surgical floor while awaiting transfer to liver transplant center at [facility] History of Present Illness Primary Care Provider: Gayla Pacheco MD Zoltan Lorenz is a 40-year-old male with PMH of alcoholic cirrhosis, alcoholic hepatitis, hepatitis C, substance abuse disorder on buprenorphine, alcoholism who was recently admitted to [facility] on 08/04/20-08/17/20 for hepatic encephalopathy in the setting of intolerance to his lactulose secondary to vomiting. The patient was discharged on 08/17/20 because he wanted to go home to see his kids, he comes back in today 08/20/2020 for weakness. On evaluation in the emergency room it was noticed on his labs that his sodium has continued to drift down from 125 at discharge to 120 today, his total bilirubin has increased to 31.8 (14- 29), direct bili increased to 21.8 (6-12), AST 123 (96-101) and ALT increased to 103 (78-81), albumin 3.1. WBC increased at 26.67 (10-26 previously, but on steroids) with negative blood cultures from previous admission, and has been re- cultured today. Urine negative, lactate negative. Creatinine pending secondary to icterus, but was 0.97 from 3 days ago. COVID NEGATIVE. He has previously been evaluated by [facility] for liver transplant and secondary to high risk history of drug and alcohol abuse, he was to enroll in [facility] and remain sober for 3 months with re-evaluation. He was due for evaluation there in September. Due to the acute/chronic worsening of the patient's liver function and inability to stay out of hospital, we have reached out to [facility] and they have accepted the patient for transfer for earlier re-evaluation as he has recently started his intensive outpatient program at [facility] in [place] on Wednesdays and Fridays from 10 AM to 1 PM as per patient report. The patient appears weak, but his mental status is intact and appropriate. Reports he is taking his medications however has not taking them today. Reports he had 1 BM yesterday and continues to struggle with his lactulose secondary to nausea and vomiting. Patient will be admitted until transfer occurs. The patient is enrolled in [facility] at [place] [phone] [employer]- TRACY [phone] [facility]- [phone] [facility]- [id number] Allergies Allergy/AdvReac Type Severity Reaction Status Date / Time naloxone Allergy Unknown Abdominal Verified 08/20/20 11:34 cramping, sore throat and a headache Home Medications Medication Instructions Recorded Confirmed Type buprenorphine HCl 8 mg sublingual 12 mg SUBLINGUAL DAILY tab 07/13/20 08/20/20 History tablet lactulose 10 gram/15 mL oral 10 g PO QID #946 ml 07/13/20 08/20/20 Rx solution rifaximin 550 mg tablet 550 mg PO BID #60 tab 07/13/20 08/20/20 Rx hydroxyzine HCl 25 mg PO HS PRN 08/04/20 08/20/20 History furosemide 80 mg PO DAILY #30 tab 08/17/20 08/20/20 Rx folic acid 1 mg tablet 1 mg PO DAILY #90 tab 08/18/20 08/20/20 Rx nadolol 20 mg tablet 20 mg PO DAILY #90 tab 08/18/20 08/20/20 Rx ondansetron HCl 4 mg tablet 4 mg PO Q8H PRN #90 tab 08/18/20 08/20/20 Rx pantoprazole 40 mg tablet,delayed 40 mg PO QAM #90 tab 08/18/20 08/20/20 Rx release sennosides 8.6 mg tablet 8.6 mg PO DAILY #90 tab 08/18/20 08/20/20 Rx thiamine HCl (vitamin B1) 100 mg 100 mg PO DAILY #90 tab 08/18/20 08/20/20 Rx tablet prednisolone 15 mg/5 mL oral See Rx Instructions PO DAILY #240 08/19/20 08/20/20 Rx solution ml spironolactone 50 mg tablet 200 mg PO DAILY #90 tab 08/19/20 08/20/20 Rx Past Med/Surg History Medical History Abdominal ascites Alcohol withdrawal Alcoholic hepatitis Coagulopathy Heart valve regurgitation Hepatitis C Hyperammonemia Hyponatremia Leg swelling Pancytopenia Smoker Substance abuse in remission Thrombocytopenia Surgical History No pertinent past surgical history Family History Grandfather (Paternal) Myocardial infarction Father Diabetes Denies family history of Ovarian cancer Prostate cancer Breast cancer Colorectal cancer Social History Smoking Status: Current every day smoker Tobacco Type: Cigarettes Age Started Using Tobacco: 14; packs per day: 1; Years Smoked: 26; Cigarettes Per Day: 1 pack or less; Second Hand Exposure: No; Do You Dip or Chew Tobacco: No; Tobacco Cessation Education Requested by Patient: No Hx Alcohol Use: No Hx Substance Use: No Preferred Language: Mongolian Communication Ability: Effective Visual Impairment: No Limitations Hearing Ability: Normal Acquisition Manager Required: No Beliefs That Will Affect Care: None marital status: Single Current Living Situation: Alone current occupational status: unemployed How many Children do You have: 2 Feels Safe at Home: Yes Safety Concerns: Feels Safe At This Time Childhood Exposure to Second-Hand Smoke: Yes Diet Comment: high protein caffeine: No during the past year weight has: decreased > 10 lbs Dental Care, Regularly: No Physical Activity Frequency: Daily Seatbelt Use: always Sunscreen Use: Yes Assistive Devices: Cane Review of Systems Review of Systems: REVIEW OF SYSTEMS: Constitutional: No fever, sweats or chills Eyes: No diplopia, no worsening or blurred vision ENT: normal hearing, no trouble swallowing Respiratory: No cough, sputum, dyspnea at rest or on exertion Cardiovascular: No chest pain, tightness or palpitations Abdomen: (+) nausea, vomiting, No pain, diarrhea or constipation, ascites Musculoskeletal: No joint pain, calf pain, swelling Neurologic: (+) weakness, confusion, (-) encephalopathic, numbness/tingling, or balance problems Psychiatric: No anxiety or depression Skin: No rash or itch Physical Exam Physical Exam: PHYSICAL EXAM: General: awake, alert, no apparent distress, mild memory confusion but approprite Head: Normocephalic, atraumatic ENT: scleral icterus, PERRL, EOMI, no pharyngeal exudate, mucous membranes moist Neuro: AAO x 3, speech clear and appropriate, strength intact bilaterally 5/5, sensation intact and equal all extremities and dermatomes, no pronator drift Chest: equal rise and fall of the chest, no accessory muscle use, no heaves or thrills, Clear to auscultation, on room air, Cardiac: Regular rate and rhythm, telemetry reviewed, Systolic murmur, skin warm dry, cap refill <3 seconds, peripheral pulses +2 no JVD, no murmur, trace edema. GI: NABS x 4 quadrants, soft, nontender to palpation, no rebound, guarding or tenderness : Spontaneously voiding, no pain, no CVA tenderness, Extremities: Normal inspection, no peripheral edema or erythema, calfs nontender to palpation Psych: Normal mood and affect Skin: Jaundiced, venous discoloration to lower extremities. Results & Data Results & Data ([facility]) Vital Signs (Past 12 Hours) Vital Signs Temp Pulse Pulse Resp BP BP Pulse Ox 08/20/20 12:30 63 12 116/66 97 08/20/20 12:16 65 11 L 97 08/20/20 12:15 69 6 L 123/78 98 08/20/20 12:00 61 10 L 118/70 98 08/20/20 11:52 61 61 10 L 118/66 118/66 98 08/20/20 11:45 61 14 117/67 97 08/20/20 11:30 63 12 122/71 96 08/20/20 11:15 63 14 118/72 97 08/20/20 11:00 61 11 L 122/70 97 08/20/20 10:45 58 L 10 L 122/72 96 08/20/20 10:30 37.1 C 72 71 13 125/76 107/78 96 08/20/20 10:25 71 21 97 08/20/20 10:21 62 20 128/75 08/20/20 10:15 21 97 08/20/20 10:04 65 15 132/81 97 08/20/20 09:42 37.1 C 71 71 21 107/78 107/78 97 08/20/20 09:41 69 15 107/78 97 Laboratory Results Abnormal lab results 08/20/20 08/20/20 08/20/20 Range/Units 10:02 10:02 10:02 WBC 26.67 H (4.8-10.8) K/uL RBC 2.96 L (4.7-6.1) M/uL Hgb 11.0 L (14.0-18.0) g/dL Hct 29.6 L (42-52) % MCH 37.2 H (25-34) pg MCHC 37.2 H (32-36) g/dL RDW Std Deviation 66.4 H (36.4-46.3) fL RDW Coeff of Munir 18.0 H (11.5-14.5) % Plt Count 114 L (130-400) K/uL Neut # (Auto) 23.23 H (1.4-6.5) K/uL Lymph # (Auto) 0.85 L (1.2-3.4) K/uL Mcminn # (Auto) 0.75 H (0.11-0.59) K/uL Immature Gran # (Auto) 1.70 H (0.00-0.02) K/uL PT 20.5 H (9.0-12.0) Seconds INR 2.1 H (0.9-1.1) APTT 43.3 H (21.0-31.0) Seconds Sodium 120 L (136-145) mmol/L Chloride 85 L (98-107) mmol/L BUN 32 H (7-18) mg/dl Glucose 131 H (70-99) mg/dl Osmolality (280-300) mOsm/kg Total Bilirubin 31.8 H (0.2-1) mg/dl Direct Bilirubin 21.8 H (0-0.2) mg/dl AST 123 H (15-37) U/L ALT 103 H (12-78) U/L Alkaline Phosphatase 172 H (45-117) U/L Ammonia (11-32) umol/L Albumin 3.1 L (3.4-5.0) gm/dl Urine Nitrite (Negative) Urine Bilirubin (Negative) Ur Leukocyte Esterase (Negative) 08/20/20 08/20/20 08/20/20 Range/Units 10:02 10:12 13:14 WBC (4.8-10.8) K/uL RBC (4.7-6.1) M/uL Hgb (14.0-18.0) g/dL Hct (42-52) % MCH (25-34) pg MCHC (32-36) g/dL RDW Std Deviation (36.4-46.3) fL RDW Coeff of Munir (11.5-14.5) % Plt Count (130-400) K/uL Neut # (Auto) (1.4-6.5) K/uL Lymph # (Auto) (1.2-3.4) K/uL Mcminn # (Auto) (0.11-0.59) K/uL Immature Gran # (Auto) (0.00-0.02) K/uL PT (9.0-12.0) Seconds INR (0.9-1.1) APTT (21.0-31.0) Seconds Sodium (136-145) mmol/L Chloride (98-107) mmol/L BUN (7-18) mg/dl Glucose (70-99) mg/dl Osmolality 271 L (280-300) mOsm/kg Total Bilirubin (0.2-1) mg/dl Direct Bilirubin (0-0.2) mg/dl AST (15-37) U/L ALT (12-78) U/L Alkaline Phosphatase (45-117) U/L Ammonia 41.8 H (11-32) umol/L Albumin (3.4-5.0) gm/dl Urine Nitrite Positive A (Negative) Urine Bilirubin 3+ H (Negative) Ur Leukocyte Esterase Trace H (Negative) 08/20/20 08/20/20 08/20/20 Range/Units 14:08 14:08 13:14 WBC (4.8-10.8) K/uL RBC (4.7-6.1) M/uL Hgb (14.0-18.0) g/dL Hct (42-52) % MCV (80-100) fL MCH (25-34) pg MCHC (32-36) g/dL RDW Std Deviation (36.4-46.3) fL RDW Coeff of Munir (11.5-14.5) % Plt Count (130-400) K/uL MPV (7.4-10.4) fL Immature Gran % (Auto) % Neut % (Auto) % Lymph % (Auto) % Mcminn % (Auto) % Eos % (Auto) % Baso % (Auto) % Neut # (Auto) (1.4-6.5) K/uL Lymph # (Auto) (1.2-3.4) K/uL Mcminn # (Auto) (0.11-0.59) K/uL Eos # (Auto) (0-0.5) K/uL Baso # (Auto) (0-0.2) K/uL Immature Gran # (Auto) (0.00-0.02) K/uL Acanthocytes (Spur) PT (9.0-12.0) Seconds INR (0.9-1.1) APTT (21.0-31.0) Seconds PTT Ratio Sodium (136-145) mmol/L Potassium (3.5-5.1) mmol/L Chloride (98-107) mmol/L Carbon Dioxide (21-32) mmol/L Anion Gap (3-11) BUN (7-18) mg/dl Creatinine (0.6-1.4) mg/dl Est Cr Clr Drug Dosing Est GFR ( Amer) Est GFR (Non-Af Amer) BUN/Creatinine Ratio Glucose (70-99) mg/dl Osmolality (280-300) mOsm/kg Lactate (0.4-2.0) mmol/L Calcium (8.5-10.1) mg/dl Magnesium (1.8-2.4) mg/dl Total Bilirubin (0.2-1) mg/dl Direct Bilirubin (0-0.2) mg/dl AST (15-37) U/L ALT (12-78) U/L Alkaline Phosphatase (45-117) U/L Ammonia (11-32) umol/L Troponin I (0-0.045) ng/ml Total Protein (6.4-8.2) gm/dl Albumin (3.4-5.0) gm/dl Globulin Albumin/Globulin Ratio Procalcitonin (0-0.5) ng/ml Urine Color Urine Appearance (Clear) Urine pH (4.5-7.5) Ur Specific [place] (1.000-1.030) Urine Protein (Negative) Urine Glucose (UA) (Negative) Urine Ketones (Negative) Urine Blood (Negative) Urine Nitrite (Negative) Urine Bilirubin (Negative) Urine Urobilinogen (Negative) Ur Leukocyte Esterase (Negative) Urine WBC (Auto) (0-5) /hpf Urine RBC (Auto) (0-4) /hpf U Hyaline Cast (Auto) (0-5) /lpf U Epithel Cells (Auto) (0-5) /lpf Urine Bacteria (Auto) (Negative) Urine Osmolality 500 (500-800) mOsm/kg Ethyl Alcohol mg/dL (0-3) mg/dl COVID-19 Eval [email or web address] SARS-[facility]-2, RNA, NAAT NEGATIVE (NEGATIVE) Miscellaneous Test Miscellaneous Test 2 08/20/20 08/20/20 08/20/20 Range/Units 13:14 10:12 10:12 WBC (4.8-10.8) K/uL RBC (4.7-6.1) M/uL Hgb (14.0-18.0) g/dL Hct (42-52) % MCV (80-100) fL MCH (25-34) pg MCHC (32-36) g/dL RDW Std Deviation (36.4-46.3) fL RDW Coeff of Munir (11.5-14.5) % Plt Count (130-400) K/uL MPV (7.4-10.4) fL Immature Gran % (Auto) % Neut % (Auto) % Lymph % (Auto) % Mcminn % (Auto) % Eos % (Auto) % Baso % (Auto) % Neut # (Auto) (1.4-6.5) K/uL Lymph # (Auto) (1.2-3.4) K/uL Mcminn # (Auto) (0.11-0.59) K/uL Eos # (Auto) (0-0.5) K/uL Baso # (Auto) (0-0.2) K/uL Immature Gran # (Auto) (0.00-0.02) K/uL Acanthocytes (Spur) PT (9.0-12.0) Seconds INR (0.9-1.1) APTT (21.0-31.0) Seconds PTT Ratio Sodium (136-145) mmol/L Potassium (3.5-5.1) mmol/L Chloride (98-107) mmol/L Carbon Dioxide (21-32) mmol/L Anion Gap (3-11) BUN (7-18) mg/dl Creatinine (0.6-1.4) mg/dl Est Cr Clr Drug Dosing Est GFR ( Amer) Est GFR (Non-Af Amer) BUN/Creatinine Ratio Glucose (70-99) mg/dl Osmolality (280-300) mOsm/kg Lactate (0.4-2.0) mmol/L Calcium (8.5-10.1) mg/dl Magnesium (1.8-2.4) mg/dl Total Bilirubin (0.2-1) mg/dl Direct Bilirubin (0-0.2) mg/dl AST (15-37) U/L ALT (12-78) U/L Alkaline Phosphatase (45-117) U/L Ammonia 41.8 H (11-32) umol/L Troponin I (0-0.045) ng/ml Total Protein (6.4-8.2) gm/dl Albumin (3.4-5.0) gm/dl Globulin Albumin/Globulin Ratio Procalcitonin (0-0.5) ng/ml Urine Color Dark Yellow Urine Appearance Clear (Clear) Urine pH 5.5 (4.5-7.5) Ur Specific [place] 1.017 (1.000-1.030) Urine Protein Negative (Negative) Urine Glucose (UA) Negative (Negative) Urine Ketones Negative (Negative) Urine Blood Negative (Negative) Urine Nitrite Positive A (Negative) Urine Bilirubin 3+ H (Negative) Urine Urobilinogen Negative (Negative) Ur Leukocyte Esterase Trace H (Negative) Urine WBC (Auto) 0 (0-5) /hpf Urine RBC (Auto) 0-4 (0-4) /hpf U Hyaline Cast (Auto) 0 (0-5) /lpf U Epithel Cells (Auto) 0-5 (0-5) /lpf Urine Bacteria (Auto) Negative (Negative) Urine Osmolality (500-800) mOsm/kg Ethyl Alcohol mg/dL < 3.0 (0-3) mg/dl COVID-19 Eval Order SARS-CoV-2, RNA, NAAT (NEGATIVE) Miscellaneous Test Miscellaneous Test 2 08/20/20 08/20/20 08/20/20 Range/Units 10:12 10:02 10:02 WBC (4.8-10.8) K/uL RBC (4.7-6.1) M/uL Hgb (14.0-18.0) g/dL Hct (42-52) % MCV (80-100) fL MCH (25-34) pg MCHC (32-36) g/dL RDW Std Deviation (36.4-46.3) fL RDW Coeff of Munir (11.5-14.5) % Plt Count (130-400) K/uL MPV (7.4-10.4) fL Immature Gran % (Auto) % Neut % (Auto) % Lymph % (Auto) % Mcminn % (Auto) % Eos % (Auto) % Baso % (Auto) % Neut # (Auto) (1.4-6.5) K/uL Lymph # (Auto) (1.2-3.4) K/uL Mcminn # (Auto) (0.11-0.59) K/uL Eos # (Auto) (0-0.5) K/uL Baso # (Auto) (0-0.2) K/uL Immature Gran # (Auto) (0.00-0.02) K/uL Acanthocytes (Spur) PT (9.0-12.0) Seconds INR (0.9-1.1) APTT (21.0-31.0) Seconds PTT Ratio Sodium (136-145) mmol/L Potassium (3.5-5.1) mmol/L Chloride (98-107) mmol/L Carbon Dioxide (21-32) mmol/L Anion Gap (3-11) BUN (7-18) mg/dl Creatinine (0.6-1.4) mg/dl Est Cr Clr Drug Dosing Est GFR ( Amer) Est GFR (Non-Af Amer) BUN/Creatinine Ratio Glucose (70-99) mg/dl Osmolality 271 L (280-300) mOsm/kg Lactate 1.6 (0.4-2.0) mmol/L Calcium (8.5-10.1) mg/dl Magnesium (1.8-2.4) mg/dl Total Bilirubin (0.2-1) mg/dl Direct Bilirubin (0-0.2) mg/dl AST (15-37) U/L ALT (12-78) U/L Alkaline Phosphatase (45-117) U/L Ammonia (11-32) umol/L Troponin I (0-0.045) ng/ml Total Protein (6.4-8.2) gm/dl Albumin (3.4-5.0) gm/dl Globulin Albumin/Globulin Ratio Procalcitonin (0-0.5) ng/ml Urine Color Urine Appearance (Clear) Urine pH (4.5-7.5) Ur Specific [place] (1.000-1.030) Urine Protein (Negative) Urine Glucose (UA) (Negative) Urine Ketones (Negative) Urine Blood (Negative) Urine Nitrite (Negative) Urine Bilirubin (Negative) Urine Urobilinogen (Negative) Ur Leukocyte Esterase (Negative) Urine WBC (Auto) (0-5) /hpf Urine RBC (Auto) (0-4) /hpf U Hyaline Cast (Auto) (0-5) /lpf U Epithel Cells (Auto) (0-5) /lpf Urine Bacteria (Auto) (Negative) Urine Osmolality (500-800) mOsm/kg Ethyl Alcohol mg/dL (0-3) mg/dl COVID-19 Eval Order SARS-CoV-2, RNA, NAAT (NEGATIVE) Miscellaneous Test Pending Miscellaneous Test 2 Pending 08/20/20 08/20/20 08/20/20 Range/Units 10:02 10:02 10:02 WBC (4.8-10.8) K/uL RBC (4.7-6.1) M/uL Hgb (14.0-18.0) g/dL Hct (42-52) % MCV (80-100) fL MCH (25-34) pg MCHC (32-36) g/dL RDW Std Deviation (36.4-46.3) fL RDW Coeff of Munir (11.5-14.5) % Plt Count (130-400) K/uL MPV (7.4-10.4) fL Immature Gran % (Auto) % Neut % (Auto) % Lymph % (Auto) % Mcminn % (Auto) % Eos % (Auto) % Baso % (Auto) % Neut # (Auto) (1.4-6.5) K/uL Lymph # (Auto) (1.2-3.4) K/uL Mcminn # (Auto) (0.11-0.59) K/uL Eos # (Auto) (0-0.5) K/uL Baso # (Auto) (0-0.2) K/uL Immature Gran # (Auto) (0.00-0.02) K/uL Acanthocytes (Spur) PT 20.5 H (9.0-12.0) Seconds INR 2.1 H (0.9-1.1) APTT 43.3 H (21.0-31.0) Seconds PTT Ratio 1.6 Sodium 120 L (136-145) mmol/L Potassium 4.9 (3.5-5.1) mmol/L Chloride 85 L (98-107) mmol/L Carbon Dioxide 27 (21-32) mmol/L Anion Gap 8.0 (3-11) BUN 32 H (7-18) mg/dl Creatinine (0.6-1.4) mg/dl Est Cr Clr Drug Dosing Not Reportable Est GFR ( Amer) Not Reportable Est GFR (Non-Af Amer) Not Reportable BUN/Creatinine Ratio TNP Glucose 131 H (70-99) mg/dl Osmolality (280-300) mOsm/kg Lactate (0.4-2.0) mmol/L Calcium 9.5 (8.5-10.1) mg/dl Magnesium 2.3 (1.8-2.4) mg/dl Total Bilirubin 31.8 H (0.2-1) mg/dl Direct Bilirubin 21.8 H (0-0.2) mg/dl AST 123 H (15-37) U/L ALT 103 H (12-78) U/L Alkaline Phosphatase 172 H (45-117) U/L Ammonia (11-32) umol/L Troponin I < 0.015 (0-0.045) ng/ml Total Protein (6.4-8.2) gm/dl Albumin 3.1 L (3.4-5.0) gm/dl Globulin TNP Albumin/Globulin Ratio TNP Procalcitonin 0.11 (0-0.5) ng/ml Urine Color Urine Appearance (Clear) Urine pH (4.5-7.5) Ur Specific [place] (1.000-1.030) Urine Protein (Negative) Urine Glucose (UA) (Negative) Urine Ketones (Negative) Urine Blood (Negative) Urine Nitrite (Negative) Urine Bilirubin (Negative) Urine Urobilinogen (Negative) Ur Leukocyte Esterase (Negative) Urine WBC (Auto) (0-5) /hpf Urine RBC (Auto) (0-4) /hpf U Hyaline Cast (Auto) (0-5) /lpf U Epithel Cells (Auto) (0-5) /lpf Urine Bacteria (Auto) (Negative) Urine Osmolality (500-800) mOsm/kg Ethyl Alcohol mg/dL (0-3) mg/dl COVID-19 Eval Order SARS-CoV-2, RNA, NAAT (NEGATIVE) Miscellaneous Test Miscellaneous Test 2 08/20/20 Range/Units 10:02 WBC 26.67 H (4.8-10.8) K/uL RBC 2.96 L (4.7-6.1) M/uL Hgb 11.0 L (14.0-18.0) g/dL Hct 29.6 L (42-52) % MCV 100.0 (80-100) fL MCH 37.2 H (25-34) pg MCHC 37.2 H (32-36) g/dL RDW Std Deviation 66.4 H (36.4-46.3) fL RDW Coeff of Munir 18.0 H (11.5-14.5) % Plt Count 114 L (130-400) K/uL MPV 9.2 (7.4-10.4) fL Immature Gran % (Auto) 6.4 % Neut % (Auto) 87.1 % Lymph % (Auto) 3.2 % Mcminn % (Auto) 2.8 % Eos % (Auto) 0.4 % Baso % (Auto) 0.1 % Neut # (Auto) 23.23 H (1.4-6.5) K/uL Lymph # (Auto) 0.85 L (1.2-3.4) K/uL Mcminn # (Auto) 0.75 H (0.11-0.59) K/uL Eos # (Auto) 0.11 (0-0.5) K/uL Baso # (Auto) 0.03 (0-0.2) K/uL Immature Gran # (Auto) 1.70 H (0.00-0.02) K/uL Acanthocytes (Spur) 3+ PT (9.0-12.0) Seconds INR (0.9-1.1) APTT (21.0-31.0) Seconds PTT Ratio Sodium (136-145) mmol/L Potassium (3.5-5.1) mmol/L Chloride (98-107) mmol/L Carbon Dioxide (21-32) mmol/L Anion Gap (3-11) BUN (7-18) mg/dl Creatinine (0.6-1.4) mg/dl Est Cr Clr Drug Dosing Est GFR ( Amer) Est GFR (Non-Af Amer) BUN/Creatinine Ratio Glucose (70-99) mg/dl Osmolality (280-300) mOsm/kg Lactate (0.4-2.0) mmol/L Calcium (8.5-10.1) mg/dl Magnesium (1.8-2.4) mg/dl Total Bilirubin (0.2-1) mg/dl Direct Bilirubin (0-0.2) mg/dl AST (15-37) U/L ALT (12-78) U/L Alkaline Phosphatase (45-117) U/L Ammonia (11-32) umol/L Troponin I (0-0.045) ng/ml Total Protein (6.4-8.2) gm/dl Albumin (3.4-5.0) gm/dl Globulin Albumin/Globulin Ratio Procalcitonin (0-0.5) ng/ml Urine Color Urine Appearance (Clear) Urine pH (4.5-7.5) Ur Specific [place] (1.000-1.030) Urine Protein (Negative) Urine Glucose (UA) (Negative) Urine Ketones (Negative) Urine Blood (Negative) Urine Nitrite (Negative) Urine Bilirubin (Negative) Urine Urobilinogen (Negative) Ur Leukocyte Esterase (Negative) Urine WBC (Auto) (0-5) /hpf Urine RBC (Auto) (0-4) /hpf U Hyaline Cast (Auto) (0-5) /lpf U Epithel Cells (Auto) (0-5) /lpf Urine Bacteria (Auto) (Negative) Urine Osmolality (500-800) mOsm/kg Ethyl Alcohol mg/dL (0-3) mg/dl COVID-19 Eval Order SARS-CoV-2, RNA, NAAT (NEGATIVE) Miscellaneous Test Miscellaneous Test 2 Diagnostic Findings US duplex portal hepatic veins HISTORY: 40 years-old Male evaluate for liver thrombus acute right upper quadrant abdominal pain COMPARISON: Duplex venous Doppler study 08/13/2020 TECHNIQUE: Multiple real-time sonographic images of the hepatic vasculature was obtained assessing grayscale appearance, color and spectral flow FINDINGS: Hepatic and portal veins and hepatic artery are patent. Hepatopedal flow noted within the portal vein. Sludge-filled gallbladder with mild wall thickening redemonstrated measuring up to 4 mm. IMPRESSION: 1. Patent portal vein with normal directional flow. 2. Sludge-filled gallbladder with mild wall thickening re-demonstrated. XR chest 1V portable HISTORY: 40 years-old Male SEPSIS acute sepsis COMPARISON: Chest radiograph 06/11/2020 TECHNIQUE: Portable AP view of the chest FINDINGS: Cardiomediastinal and hilar silhouettes are within normal limits. No pneumothorax, pleural effusion, airspace consolidation or overt pulmonary edema. Bones of the chest appear grossly intact. IMPRESSION: No acute process. US abdomen ltd ascites HISTORY: 40 years-old Male rule out SBP abdominal distention with possible ascites COMPARISON: Abdominal ultrasound 08/05/2020 TECHNIQUE: Multiple real-time sonographic images of the abdomen were obtained assessing grayscale appearance and color flow FINDINGS: All 4 quadrants of the abdomen were assessed for ascitic fluid. No ascites identified. IMPRESSION: No abdominal ascites, therefore paracentesis was not conducted. US duplex portal hepatic veins CLINICAL HISTORY: Cirrhosis. Abnormal liver enzymes. COMPARISON STUDY: June 2020 FINDINGS: The hepatic and portal veins are patent with normal directional flow. The hepatic artery is patent with a peak systolic velocity of 77 cm/s. The splenic vein was not visualized. There is a distended sludge-filled gallbladder. There is gallbladder wall thickening. There is no ductal dilatation. The common bile duct measures 4 mm. IMPRESSION: 1. Hepatic and portal veins are patent with normal directional flow. The splenic vein was not visualized. 2. Sludge-filled gallbladder with mild gallbladder wall thickening 2. No evidence of ductal dilatation. The common bile duct measures 4 mm. US abdomen limited CLINICAL HISTORY: Ascites check COMPARISON STUDY: June 13, 2020 FINDINGS: There is four-quadrant relatively low volume ascites. The amount of ascitic fluid is markedly diminished as compared with the prior preparacentesis June 13, 2020 study. IMPRESSION: Relatively low volume 4 quadrant ascites Medications Administered Discontinued Medications Sodium Chloride (Nss 1000ml) 1,000 mls @ 999 mls/hr IV .Q1H1M ONE Stop: 08/20/20 10:45 Last Infusion: 08/20/20 12:18 Dose: 0 mls/hr Documented by: [id number] Admin: 08/20/20 10:13 Dose: 999 mls/hr Documented by: [id number] Ondansetron HCl (Ondansetron Inj 2 Mg/Ml 2 Ml Vial) 4 mg IV NOW STA Stop: 08/20/20 09:47 Last Admin: 08/20/20 14:02 Dose: Not Given Documented by: [id number] ECG Additional Comments: Test Reason : Blood Pressure : / mmHG Vent. Rate : 061 BPM Atrial Rate : 061 BPM P-R Int : 134 ms QRS Dur : 094 ms QT Int : 450 ms P-R-T Axes : 046 -15 039 degrees QTc Int : 453 ms Normal sinus rhythm Code Status & VTE Plan Code Status CODE: FULL VTE: SCD', Heparin VTE Prophylaxis Plan VTE Prophylaxis will be ordered: Yes Critical Care Time Prolonged Care Time Prolonged Care Time: Yes Total Prolonged Care Time: 60 Supervising Physician Co-Signing Physician Notes HEALTH PSYCHOLOGIST Supervision note: I have personally seen and examined the patient and discussed and verified the [place] points of the history and physical along with the plan with SHERLYN Leyva with the following exceptions and/or additions: Patient is a 40-year-old male with a history of liver failure, substance abuse, and history of alcohol abuse who was recently admitted for a 2-1/2-week stay for hepatic encephalopathy and management of liver failure and ascites and was dis charged 3 days ago. He returns today feeling generally weak and with inability to keep lactulose down and nausea. His bilirubin is significantly further elevated and his sodium level is down from previous at 120. He has some p.o. intake. His peripheral edema is much improved. He has been taking his diuretics. He denies fevers or chills. No chest pain or shortness of breath, no abdominal pains. He has been moving his bowels but only once in the last 36 hours. History and ROS reviewed as above Vitals reviewed Gen: AAOx3, NAD, but mildly lethargic, jaundiced HEENT: Scleral icterus present, EOMI CV: RRR 2/6 systolic murmur at the apex nl S1S2 Pulm: CTAB no wcr Abd: +BS soft NT ND no masses or hernias, hepatomegaly palpated Ext: No edema, 2+ DP pulses Skin: Chronic discoloration of the legs-purplish in color,, warm/dry, jaundiced Neuro: Full strength throughout Laboratory values reviewed I was present with the SHERLYN on the phone with the GI specialist from [place] at the time of discussion of transfer. 40-year-old male here with worsening liver failure, worsening hyponatremia and hyperbilirubinemia, generalized weakness and nausea related to such. Preparations have been made for transfer to [place] for liver transplant evaluation. We will follow labs while here and hold diuretics for now If patient is still here in the morning (i.e. no bed available at [place]), wi ll call back down to GI for any further recommendations as needed PG Care Time/CCT Total # of Minutes Spent Total Time Spent with Patient: Total time spent is greater than 50% in coordination of care (as documented) at patient's floor/unit and/or counseling patient: Prolonged Care Time Prolonged Care Time: Yes Total Prolonged Care Time: 60 60 minutes was spent independent of initial evaluation. This time was spent coordinating transfer, reviewing images and case with specialist and reviewing past treatments. Coding Level of Care Code 07008 Initial Inpt Care Lvl 3 (25 - SIGNIFICANT, SEPARATELY IDENTIFIABLE ) Diagnoses Hyperbilirubinemia E80.6 Acute hyponatremia E87.1 Hepatic encephalopathy K72.90 Cirrhosis K70.31 Ascites presence: with ascites Hepatic cirrhosis type: alcoholic cirrhosis Leukocytosis D72.823 Leukocytosis type: leukemoid reaction Substance abuse F19.10 Hepatitis C B19.20 Hepatic coma status: without hepatic coma Viral hepatitis chronicity: unspecified Elevated INR R79.1 Murmur R01.1 Acute hepatic failure K72.00 Hepatic coma status: without hepatic coma Anemia D64.9 Anemia type: unspecified type Thrombocytopenia D69.6 DVT prophylaxis Z29.9 Additional Codes Prolonged Care Time - Prolonged Care Time: Yes ([id number]) (1) Leukocytosis Leukocytosis type: leukemoid reaction Qualified Code(s): D72.823 - Leukemoid reaction (2) Cirrhosis Ascites presence: with ascites Hepatic cirrhosis type: alcoholic cirrhosis Qualified Code(s): K70.31 - Alcoholic cirrhosis of liver with ascites (3) Hepatitis C Hepatic coma status: without hepatic coma Viral hepatitis chronicity: unspecified Qualified Code(s): B19.20 - Unspecified viral hepatitis C without hepatic coma (4) Acute hepatic failure Hepatic coma status: without hepatic coma Qualified Code(s): K72.00 - Acute and subacute hepatic failure without coma (5) Anemia Anemia type: unspecified type Qualified Code(s): D64.9 - Anemia, unspecified
--- NOTE | 2020-08-20 15:00 | Ultrasound Report ---
US duplex portal hepatic veins HISTORY: 40 years-old Male evaluate for liver thrombus acute right upper quadrant abdominal pain COMPARISON: Duplex venous Doppler study 08/13/2020 TECHNIQUE: Multiple real-time sonographic images of the hepatic vasculature was obtained assessing gr ayscale appearance, color and spectral flow FINDINGS: Hepatic and portal veins and hepatic artery are patent. Hepatopedal flow noted within the portal vein . Sludge-filled gallbladder with mild wall thickening redemonstrated measuring up to 4 mm. IMPRESSION: 1. Patent portal vein with normal directional flow. 2. Sludge-filled gallbladder with mild wall thickening redemonstrated. ACT 112: Negative or not required by law. The above report was generated using voice recognition software. It may contain grammatical, syntax o r spelling errors. Electronically signed by: Jake Mccarty M.D. 08/20/2020 2:58 PM
[2020-08-20] MEDS: nadoloL 40 MG TAB PO SCH (17:26)
[2020-08-20] MEDS: THIAMINE HCL 100 MG TAB PO SCH (17:26)
[2020-08-20] MEDS: SENNA 8.6 MG TAB PO SCH (17:26)
[2020-08-20] MEDS: FOLIC ACID 1 MG TAB PO SCH (17:26)
[2020-08-20] MEDS: LACTULOSE SYRUP 10 GM/15 ML BTL 960 ML PO SCH ×2 (18:02→20:01)
[2020-08-20] MEDS: PANTOprazole 40 MG TAB PO SCH (18:06)
[2020-08-20] MEDS: ONDANSETRON 4 MG OD TAB PO PRN (19:25)
[2020-08-20] MEDS: HEPARIN SOD 5,000 UNIT/0.5 ML VIAL SQ SCH (20:00)
[2020-08-20] MEDS: rifAXIMin 550 MG TABLET PO SCH (20:51)
[2020-08-21 05:59] LABS: Hematocrit (blood only) 28.1 % (42-52); Hemoglobin 10.2 g/dL (14.0-18.0); Mean Corpuscular Hemoglobin 36.7 pg (25-34); Mean Corpuscular Hgb Conc 36.3 g/dL (32-36); Mean Corpuscular Volume 101.1 fL (80-100); Mean Platelet Volume 9.8 fL (7.4-10.4); Platelet Count 101 K/uL (130-400); RDW Standard Deviation 67.5 fL (36.4-46.3); Red Blood Count 2.78 M/uL (4.7-6.1); White Blood Count 25.08 K/uL (4.8-10.8)
[2020-08-21 06:21] LABS: INR 2.1 (0.9-1.1); Partial Thromboplastin Ratio 1.9
[2020-08-21 06:29] LABS: Partial Thromboplastin Time 50.1 Seconds (21.0-31.0)
[2020-08-21 06:41] LABS: Acanthocytes 2+; Basophils # (auto) 0.03 K/uL (0-0.2); Basophils % (auto) 0.1 %; Eosinophils # (auto) 0.24 K/uL (0-0.5); Immature Granulocytes # (auto) 1.16 K/uL (0.00-0.02); Immature Granulocytes % (auto) 4.6 %; Lymphocytes # (auto) 2.29 K/uL (1.2-3.4); Lymphocytes % (auto) 9.1 %; Monocytes # (auto) 2.29 K/uL (0.11-0.59); Monocytes % (auto) 9.1 %; Neutrophils # (auto) 19.07 K/uL (1.4-6.5); Neutrophils % (auto) 76.1 %; Spherocytes Occasional
[2020-08-21 06:58] LABS: Chloride 90 mmol/L (98-107)
[2020-08-21 06:59] LABS: Magnesium 2.4 mg/dl (1.8-2.4)
[2020-08-21 07:00] LABS: Alanine Aminotransferase 95 U/L (12-78); Albumin Level 2.8 gm/dl (3.4-5.0); Alkaline Phosphatase 103 U/L (45-117); Aspartate Aminotransferase 103 U/L (15-37); Bilirubin,Total 30.8 mg/dl (0.2-1); Blood Urea Nitrogen 28 mg/dl (7-18); Calcium 8.8 mg/dl (8.5-10.1); Carbon Dioxide 27 mmol/L (21-32); Glucose 110 mg/dl (70-99); Potassium 4.7 mmol/L (3.5-5.1); Sodium 124 mmol/L (136-145)
[2020-08-21 07:09] LABS: Bilirubin Direct 21.4 mg/dl (0-0.2)
--- NOTE | 2020-08-21 09:18 | Discharge Summary ---
Date of Service August 21, 2020 Admission HPI Per Admitting Provider Zoltan Lorenz is a 40-year-old male with PMH of alcoholic cirrhosis, alcoholic hepatitis, hepatitis C, substance abuse disorder on buprenorphine, alcoholism who was recently admitted to [facility] on 08/04/20-08/17/20 for hepatic encephalopathy in the setting of intolerance to his lactulose secondary to vomiting. The patient was discharged on 08/17/20 because he wanted to go home to see his kids, he comes back in today 08/20/2020 for weakness. On evaluation in the emergency room it was noticed on his labs that his sodium has continued to drift down from 125 at discharge to 120 today, his total bilirubin has increased to 31.8 (14- 29), direct bili increased to 21.8 (6-12), AST 123 (96-101) and ALT increased to 103 (78-81), albumin 3.1. WBC increased at 26.67 (10-26 previously, but on steroids) with negative blood cultures from previous admission, and has been re- cultured today. Urine negative, lactate negative. Creatinine pending secondary to icterus, but was 0.97 from 3 days ago. COVID NEGATIVE. He has previously been evaluated by [facility] for liver transplant and secondary to high risk history of drug and alcohol abuse, he was to enroll in [facility] and remain sober for 3 months with re-evaluation. He was due for evaluation there in September. Due to the acute/chronic worsening of the patient's liver function and inability to stay out of hospital, we have reached out to [facility] and they have accepted the patient for transfer for earlier re-evaluation as he has recently started his intensive outpatient program at [facility] in [place] on Wednesdays and Fridays from 10 AM to 1 PM as per patient report. The patient appears weak, but his mental status is intact and appropriate. Reports he is taking his medications however has not taking them today. Reports he had 1 BM yesterday and continues to struggle with his lactulose secondary to nausea and vomiting. Patient will be admitted until transfer occurs. The patient is enrolled in [facility] at [place] [phone] [facility]- TRAC[facility] [phone] [facility]- [phone] [facility]- [id number] Admission Exam Per Admitting Provider PHYSICAL EXAM: General: awake, alert, no apparent distress, mild memory confusion but approprite Head: Normocephalic, atraumatic ENT: scleral icterus, PERRL, EOMI, no pharyngeal exudate, mucous membranes moist Neuro: AAO x 3, speech clear and appropriate, strength intact bilaterally 5/5, sensation intact and equal all extremities and dermatomes, no pronator drift Chest: equal rise and fall of the chest, no accessory muscle use, no heaves or thrills, Clear to auscultation, on room air, Cardiac: Regular rate and rhythm, telemetry reviewed, Systolic murmur, skin warm dry, cap refill <3 seconds, peripheral pulses +2 no JVD, no murmur, trace edema. GI: NABS x 4 quadrants, soft, nontender to palpation, no rebound, guarding or tenderness : Spontaneously voiding, no pain, no CVA tenderness, Extremities: Normal inspection, no peripheral edema or erythema, calfs nontender to palpation Psych: Normal mood and affect Skin: Jaundiced, venous discoloration to lower extremities. Principal Diagnosis Liver failure - transplant evaluation Discharge Exam Constitutional Tired, thin, and jaundiced appearing 40-year-old male who is lying back in his hospital bed, awake upon my arrival. Although he converses freely, he does so with somewhat increased latency and soft tone. No acute distress. Eyes Scleral icterus present. Respiratory Good respiratory effort with symmetric expansion of the chest. No use of accessory muscles. Lungs are clear to auscultation bilaterally without crackles or wheezes. Cardiovascular Normal rate and regular rhythm. S1 and S2 are present without murmurs rubs or gallops. Gastrointestinal (Abdomen) Normoactive bowel sounds. Abdomen is soft, nontender, nondistended. No appreciable ascites. Hepatomegaly appreciated. Skin Patient is appreciably jaundiced globally. Clubbing is appreciated and both the upper and lower extremity digits. No palmar erythema. Neurologic Patient is fully alert and oriented throughout our discussion Asterixis is present, more appreciable on the left than the right. Patient is fully alert and oriented throughout her discussion Psychiatric Tired appearing 40-year-old gentleman who is lying back in his hospital bed. He is appropriately dressed for the situation Speech latency is mildly increased, soft tone Patient describes their mood as "pretty rough" Affect is consistent with mood, constricted/flat qualities also noted No aphasia or dysarthria Discharge Data Allergies Allergy/AdvReac Type Severity Reaction Status Date / Time naloxone Allergy Unknown Abdominal Verified 08/20/20 11:34 cramping, sore throat and a headache Consultations 08/20/20 12:25 ED Decision to Admit Stat 08/20/20 15:09 Burn CD for patient Stat 08/20/20 15:10 Consult Health Information Management Stat Ordered Studies US duplex portal hepatic veins (08/20) HISTORY: 40 years-old Male evaluate for liver thrombus acute right upper quadrant abdominal pain COMPARISON: Duplex venous Doppler study 08/13/2020 TECHNIQUE: Multiple real-time sonographic images of the hepatic vasculature was obtained assessing grayscale appearance, color and spectral flow FINDINGS: Hepatic and portal veins and hepatic artery are patent. Hepatopedal flow noted within the portal vein. Sludge-filled gallbladder with mild wall thickening redemonstrated measuring up to 4 mm. IMPRESSION: 1. Patent portal vein with normal directional flow. 2. Sludge-filled gallbladder with mild wall thickening redemonstrated. PREVIOUS HOSPITALIZATION -- FOR REFERENCE (08/16) US abdomen ltd ascites HISTORY: 40 years-old Male rule out SBP abdominal distention with possible ascites COMPARISON: Abdominal ultrasound 08/05/2020 TECHNIQUE: Multiple real-time sonographic images of the abdomen were obtained assessing grayscale appearance and color flow FINDINGS: All 4 quadrants of the abdomen were assessed for ascitic fluid. No ascites identified. IMPRESSION: No abdominal ascites, therefore paracentesis was not conducted. Notable Laboratories - 08/21 WBC 25, hemoglobin 10.2, hematocrit 28.1, MCV 101.1, platelets 101, neutrophils 19.07, immature granulocytes 1.16, acanthocytes 2+, PT 20, INR 2.1, APTT 50.1, sodium 124, potassium 4.7, chloride 90, bicarb 27, anion gap 7, BUN 28, creatinine could not be calculated, calcium 8.8, magnesium 2.4 T bili 30.8, T bili 21.4, AST 103, ALT 95, alk phos 103, albumin 2.8 Ammonia 41.8 (08/20) Procalcitonin 0.11 Urinedark yellow, urine specific gravity 1.017, positive nitrites, 3+ bilirubin, trace leuk esterase, urine osmolality 500 Urine Ethyl alcohol under 3.0 SARS-CoV-2, RNA, NAATnegative (08/20) Hospital Course (1) Hyperbilirubinemia: Zoltan is a very pleasant 40-year-old gentleman with a notable history of alcoholic cirrhosis, hepatitis C, substance use disorder on buprenorphine, and alcohol use disorder who was recently admitted to [facility] on for hepatic encephalopathy in the setting of intolerance of his lactulose secondary to vomiting, found to be in acute liver failure. He was discharged on August 17 because of wanting to see his kids, and was subsequently admitted back again for weakness. Upon his arrival, he was found to be progressively hyponatremic down to 120 with hyperbilirubinemia to 31.8 (direct bili 21.8) and transaminitis, leukocytosis to 27 (10-26 previously, but on steroids) with previously negative blood culture and an otherwise negative infection work-up. His mentation remained normal during his short hospital course here. Because of his acute on chronic worsening of liver function (alongside enrollment in [facility]), discussions were held with [facility] for transfer for further management and possible evaluation for transplantation. He was subsequently accepted. In the time between his transfer, time was spent optimizing his overall medical status. Because of his progressive, but acute hypotonic hyponatremia, his Lasix and Aldactone were held, and a free water restriction of 1200 cc/day was established. Thankfully, we did observe an increase in his sodium to 124 by the day of his discharge. Further monitoring of this will be required upon his transfer. If he does develop ascites with increase of his sodium, can consider adding back on the Lasix first. His weakness is suspected to be due to metabolic derangements as well as hyperammonemia. We continued his lactulose, with a goal of 3-4 bowel movements a day, while here. Rifaximin and nadolol were continued for ongoing management of his known cirrhosis and its complications. He was also on IV steroids while here. His MELD was 33 using the last available/reliable creatinine from his previous admission. INR elevated to 2.1, with thrombocytopenia up to approximately 100-110 while heresecondary to hepatic failure, no signs or symptoms of active bleeding. Hemoglobin at discharge 10.2. Upon his arrival, patient was noted to have a leukocytosis with an appreciable left shift. Although this being the case, he did also have a leukocytosis during his previous admission with ranges from 11-26, where he was also on steroids. Blood cultures negative from recent previous admission, with new cultures taken on arrival showing [id number]. Procalcitonin normal. Negative lactate. Urine without white blood cells per microscopy, but with trace leuk esterase and positive nitrites; no urinary symptoms reported. It is possible that his leukocytosis likely represents physiologic stress reaction/demargination in the setting of ongoing steroid use. An echocardiogram was noted to have been performed in June 2020 per notes from [facility]; if this leukocytosis remains ongoing patient does develop other signs or symptoms concerning for infection, would consider repeating echocardiography. For his substance use disorder, negative urine alcohol was appreciated on admission. He is noted to be attending an intensive outpatient program. We continued his Suboxone therapy, 4 mg x 3 times daily, while here. (2) Acute hyponatremia: (3) Hepatic encephalopathy: (4) Cirrhosis: (5) Leukocytosis: (6) Substance abuse: (7) Hepatitis C: (8) Elevated INR: (9) Murmur: (10) Acute hepatic failure: (11) Anemia: (12) Thrombocytopenia: (13) DVT prophylaxis: Total Time Total Time Spent Total Time Spent (In Minutes): 45min Discharge Plan Discharge Items Patient Disposition: Transfer Acute Care Hospital Reason For Visit: LIVER FAILURE Discharge Diagnosis: Liver Failure- transplantation evaluation Condition on Discharge: Good Activity: Resume your previous activity Non-emergency contact: Primary Care Provider, Hospitalist and Grounds Supervisor Call non-emergency contact if: you have any medication questions Follow-up/Referrals: Gayla Pacheco MD [Primary Care Provider] - Diet: Regular Addtl Attending Provider Instructions: Transfer to [facility] when bed obtained. BLS Pending Studies at Discharge: No Stand-Alone Forms: My [facility] Skilled Items Patient informed of condition?: Yes DNR: No Discharge Level of Care: Other Communicable Disease: No Discharge Prognosis: Deteriorating Lines: Peripheral IV Urinary Catheter: No Medications and DC Order Prescriptions: Continued folic acid 1 mg tablet 1 mg PO DAILY Qty: 90 RF: 1 nadolol 20 mg tablet 20 mg PO DAILY Qty: 90 RF: 1 ondansetron HCl [Zofran] 4 mg tablet 4 mg PO Q8H PRN (Reason: Nausea And Vomiting) Qty: 90 RF: 1 pantoprazole 40 mg tablet,delayed release (DR/EC) 40 mg PO QAM Qty: 90 RF: 1 sennosides [senna] 8.6 mg tablet 8.6 mg PO DAILY Qty: 90 RF: 1 thiamine HCl (vitamin B1) 100 mg tablet 100 mg PO DAILY Qty: 90 RF: 1 prednisolone 15 mg/5 mL solution See Rx Instructions PO DAILY Qty: 240 RF: 0 spironolactone 50 mg tablet 200 mg PO DAILY Qty: 90 RF: 1 lactulose 10 gram/15 mL solution 10 g PO QID Qty: 946 RF: 2 rifaximin 550 mg tablet 550 mg PO BID Qty: 60 RF: 2 buprenorphine HCl 8 mg tablet, sublingual 12 mg SUBLINGUAL DAILY RF: 0 hydroxyzine HCl 50 mg tablet 25 mg PO HS PRN (Reason: Anxiety) RF: 0 furosemide 80 mg Tablet 80 mg PO DAILY Qty: 30 RF: 0 Discharge Orders: Discharge Order (Routine); Ordered 08/20/20 Ordered By: Karl Leyva Admission Data Admit Date/Time: 08/20/20 14:54 Attending Provider: Lolly Gray Admit Provider: Akua Kennedy Primary Care Provider: Gayla Pacheco Other Providers: Akua Kennedy Resident Activity Tracking Resident Involvement: Resident Care Provided Care Provided: Adult Hospital Medicine
[2020-08-21] MEDS: buprenorphine HCL 2 MG SUBL SL SCH ×3 (09:56→20:07)
[2020-08-21] MEDS: LACTULOSE SYRUP 10 GM/15 ML BTL 960 ML PO SCH ×4 (09:58→20:07)
[2020-08-21] MEDS: rifAXIMin 550 MG TABLET PO SCH ×2 (09:58→20:08)
[2020-08-21] MEDS: HEPARIN SOD 5,000 UNIT/0.5 ML VIAL SQ SCH ×2 (10:03→20:08)
[2020-08-21] MEDS: nadoloL 40 MG TAB PO SCH (11:45)
[2020-08-21] MEDS: FOLIC ACID 1 MG TAB PO SCH (11:45)
[2020-08-21] MEDS: prednisoLONE SYRUP 15 MG/5 ML BTL PO SCH (11:46)
[2020-08-21] MEDS: PANTOprazole 40 MG TAB PO SCH (11:47)
[2020-08-21] MEDS: THIAMINE HCL 100 MG TAB PO SCH (11:47)
--- NOTE | 2020-08-21 11:52 | XCELERA ---
[id number]
[2020-08-21] MEDS: SENNA 8.6 MG TAB PO SCH (21:39)
--- NOTE | 2020-08-21 22:13 | Hospitalist Progress Note ---
Date of Service August 21, 2020 Assessment & Plan (1) Hyperbilirubinemia: Zoltan is a very pleasant 40-year-old gentleman with a notable history of alcoholic cirrhosis, hepatitis C, substance use disorder on buprenorphine, and alcohol use disorder who was recently admitted to [facility] on for hepatic encephalopathy in the setting of intolerance of his lactulose secondary to vomiting, found to be in acute liver failure. He was discharged on August 17 because of wanting to see his kids, and was subsequently admitted back again for weakness. Upon his arrival, he was found to be progressively hyponatremic down to 120 with hyperbilirubinemia to 31.8 (direct bili 21.8) and transaminitis, leukocytosis to 27 (10-26 previously, but on steroids) with previously negative blood culture and an otherwise negative infection work-up. His mentation has been clear. Because of his acute on chronic worsening of liver function (alongside enrollment in [facility]), discussions were held with [facility] for transfer for further management and possible evaluation for tra nsplantation. He was subsequently accepted - awaiting bed availability. (2) Acute hyponatremia: Sodium has been trending down, went from 130-125-120 on admission today. - USOMO 500, Spec grav 1.017, serum OSMO 217 - Hold Lasix and Aldactone for today - Free water restriction 1200cc - If increase in ascites and sodium can add back lasix first - Patient is asymptomatic at this time - if symptoms occur would consider 2cc/kg (150 cc) of 3% saline bolus and recheck 4-6 hours after (3) Hepatic encephalopathy: Patient currently normal mentation and appropriate - will need to continue lactulose dosing for 3-4 bowel movements per day - MELD 33- (FOOD SERVICES MANAGER used from 3 days ago), this FOOD SERVICES MANAGER is pending secondary to icterus - Continue steroids (4) Cirrhosis: Continue rifaxmin Naldolol for variceal prophylaxis as above (5) Leukocytosis: No evidence of acute infection-possibly due to steroid use. Is afebrile - Patient recently completed course of ceftriaxone for SBP prophylaxis--- no fluid available for paracentesis - remains without ascites and no abdominal pain - Blood cultures repeated - ECHO if able prior to discharge to evalaute for vegetations, although systolic murmur has been present prior as per notes from [facility] and had a normal echocardiogram in 06/2020. - Urine -0 WBC per HPF, trace LE, positive nit (6) Substance abuse: ETHO and IV drug abuse history now in remission - ETOH negative on admission - Remains on Suboxone Is attending intensive outpatient program (7) Hepatitis C: No acute needs - as above (8) Elevated INR: Related to liver failure - improving over time - no acute bleeding or need to treat - OK with VTE prophylaxis (9) Murmur: Systollic - ECHO as above - blood cultures pending. (10) Acute hepatic failure: As above Transplant center evaluation pending (11) Anemia: Hemoglobin 11.0 and improved from previous Continue folate Follow CBC (12) Thrombocytopenia: Platelets mildly low but improved from previous, secondary to cirrhosis Follow CBC (13) DVT prophylaxis: Heparin SQ Disposition-admit to medical/surgical floor while awaiting transfer to liver transplant center at [place] Admission and Anticipated Discharge Date Admission Date: August 20, 2020 Subjective Denies any new concerns. Patiently waiting to be transferred. no fever, had one bowel movement yesterday. feeling exhausted. Physical Exam Constitutional: WD/WN, vitals as above Respiratory: NO respiratory distress Cardiovascular: RRR, no murmur, no edema Gastrointestinal (Abdomen): soft. Skin: + jaundice Results & Data Results & Data ([facility]) Vital Signs (Past 12 Hours) Vital Signs Temp Pulse Resp BP Pulse Ox 08/21/20 18:36 36.8 C 68 18 109/57 L 98 08/21/20 15:41 36.4 C L 76 20 102/62 98 (1) Cirrhosis Hepatic cirrhosis type: alcoholic cirrhosis Ascites presence: with ascites Qualified Code(s): K70.31 - Alcoholic cirrhosis of liver with ascites (2) Leukocytosis Leukocytosis type: leukemoid reaction Qualified Code(s): D72.823 - Leukemoid reaction (3) Hepatitis C Hepatic coma status: without hepatic coma Viral hepatitis chronicity: unspecified Qualified Code(s): B19.20 - Unspecified viral hepatitis C without hepatic coma (4) Acute hepatic failure Hepatic coma status: without hepatic coma Qualified Code(s): K72.00 - Acute and subacute hepatic failure without coma (5) Anemia Anemia type: unspecified type Qualified Code(s): D64.9 - Anemia, unspecified
[2020-08-22 06:43] LABS: Hematocrit (blood only) 26.5 % (42-52); Hemoglobin 9.6 g/dL (14.0-18.0); Mean Corpuscular Hemoglobin 36.8 pg (25-34); Mean Corpuscular Hgb Conc 36.2 g/dL (32-36); Mean Corpuscular Volume 101.5 fL (80-100); RDW Coefficient of Variation 18.1 % (11.5-14.5); RDW Standard Deviation 66.7 fL (36.4-46.3); Red Blood Count 2.61 M/uL (4.7-6.1); White Blood Count 25.05 K/uL (4.8-10.8)
--- NOTE | 2020-08-22 06:46 | Hospitalist Progress Note ---
Date of Service August 22, 2020 Assessment & Plan (1) Hyperbilirubinemia: 40 y/o male w/ hx of alcoholic cirrhosis, hepatitis C, substance use disorder on buprenorphine, and alcohol use disorder who was recently admitted to [facility] on for hepatic encephalopathy in the setting of intolerance of his lactulose secondary to vomiting, found to be in acute liver failure. He was discharged on August 17 because of wanting to see his kids, and was subsequently admitted back again on 08/20/20 for weakness. acute liver failure in setting of cirrhosis - elevated transaminases and elevated ammonia 41.8 on admission - dark urine. jaundiced on exam. elevated bili levels. - hepatic encephalopathy during previous admission. mentally clear during current admission - hx of hep C - elevated INR - continue lactulose and rifaximin - continue 40 mg prednisone PO daily - zofran IV for nausea hyponatremia - 120 on admission, 126 on 08/22 - currently asymptomatic - continue free water restriction anemia - ~10, stable. follow clinically thrombocytopenia - ~100. follow clinically substance abuse - continue buprenorphine 4 mg 3 times daily - [facility] as outpatient systolic murmur - at aortic region - not new - 08/21 normal echo FEN/GI: NSS at 70/hr x 1 bag on 08/22. Regular diet, but patient isn't tolerating [facility] code: full dispo: med/surg. pending transfer to [place] for liver transplant reevaluation ppx: heparin sq and protonix PO (1) hyperbilirubinemia. liver stuff ntd (2) Acute hyponatremia: fluid management (3) Hepatic encephalopathy: (4) Cirrhosis: (5) Leukocytosis: (6) Substance abuse: (7) Hepatitis C: (8) Elevated INR: (9) Murmur: (10) Acute hepatic failure: (11) Anemia: (12) Thrombocytopenia: (13) DVT prophylaxis: (2) Acute hyponatremia: (3) Hepatic encephalopathy: (4) Cirrhosis: (5) Leukocytosis: (6) Substance abuse: (7) Hepatitis C: (8) Elevated INR: (9) Murmur: (10) Acute hepatic failure: (11) Anemia: (12) Thrombocytopenia: (13) DVT prophylaxis: Admission and Anticipated Discharge Date Admission Date: August 20, 2020 Supervising Physician Co-Signing Physician Notes I personally examined the patient and verified all [place] points of history and exam, discussed case, and agree with decision making with Dr Mcgovern. Feeling some nausea, but notes that Zofran helps. Awaiting transfer to [place]. Vitals noted, in general he is awake and alert appears fatigued. HEENT normocephalic atraumatic mucous membranes are moist. Very jaundiced. No focal neuro deficits. Cirrhosis/end-stage liver diseasefor transfer to transplant center once bed is available. Otherwise as above. Subjective Doesn't feel good this AM. Needs meds. Feels dehydrated and nauseated. Throwing back up PO. Pain is at tailbone, not new. Inability to tolerate much PO is not new.. Review of Systems Review of Systems: Constitutional: Denies fever, chills Eyes: Denies blurry vision Cardiovascular: Denies palpitations. Some chest tightness when talking, not new. Respiratory: Denies shortness of breath Gastrointestinal: Denies vomiting, constipation, diarrhea.urine is getting darker. some mid abd pain. + nausea. mild emesis bilious. Genitourinary: Denies dysuria. + dark urine. Very dark brown in container. Musculoskeletal: Denies weakness, muscle aches/pain, joint aches/pain Neurological: Denies headache, numbness, tingling Physical Exam Physical Exam: General: Grossly A&O. NAD. Cooperative. Appears uncomfortable. HEENT: Atraumatic, normocephalic. Pulm: CTAB. -wheezes, -rales, -rhonchi. No respiratory distress. Cardiac: RRR, -mrg. No LE edema. Abdominal: Nondistended, soft. Mild diffuse TTP Results & Data Results & Data ([facility]) Vital Signs (Past 12 Hours) Vital Signs Temp Pulse Resp BP Pulse Ox 08/21/20 23:00 36.9 C 65 20 104/62 98 Resident Activity Tracking Resident Involvement: Resident Care Provided Care Provided: Adult Hospital Medicine (1) Anemia Anemia type: unspecified type Qualified Code(s): D64.9 - Anemia, unspecified (2) Leukocytosis Leukocytosis type: leukemoid reaction Qualified Code(s): D72.823 - Leukemoid reaction (3) Cirrhosis Ascites presence: with ascites Hepatic cirrhosis type: alcoholic cirrhosis Qualified Code(s): K70.31 - Alcoholic cirrhosis of liver with ascites (4) Hepatitis C Hepatic coma status: without hepatic coma Viral hepatitis chronicity: unspecified Qualified Code(s): B19.20 - Unspecified viral hepatitis C without hepatic coma (5) Acute hepatic failure Hepatic coma status: without hepatic coma Qualified Code(s): K72.00 - Acute and subacute hepatic failure without coma
[2020-08-22 06:48] LABS: Mean Platelet Volume 8.9 fL (7.4-10.4); Platelet Count 87 K/uL (130-400)
[2020-08-22 07:02] LABS: INR 2.1 (0.9-1.1); Partial Thromboplastin Ratio 2.1; Prothrombin Time 19.8 Seconds (9.0-12.0)
[2020-08-22 07:08] LABS: Partial Thromboplastin Time 54.4 Seconds (21.0-31.0)
[2020-08-22 07:13] LABS: Anisocytosis Present; Basophils # (auto) 0.03 K/uL (0-0.2); Basophils % (auto) 0.1 %; Eosinophils # (auto) 0.17 K/uL (0-0.5); Eosinophils % (auto) 0.7 %; Immature Granulocytes # (auto) 0.78 K/uL (0.00-0.02); Immature Granulocytes % (auto) 3.1 %; Lymphocytes # (auto) 1.83 K/uL (1.2-3.4); Lymphocytes % (auto) 7.3 %; Monocytes # (auto) 2.86 K/uL (0.11-0.59); Monocytes % (auto) 11.4 %; Neutrophils # (auto) 19.38 K/uL (1.4-6.5); Neutrophils % (auto) 77.4 %; Spherocytes 1+
[2020-08-22 07:30] LABS: Alanine Aminotransferase 84 U/L (12-78); Albumin Level 2.7 gm/dl (3.4-5.0); Alkaline Phosphatase 114 U/L (45-117); Aspartate Aminotransferase 92 U/L (15-37); Bilirubin,Total 31.5 mg/dl (0.2-1); Blood Urea Nitrogen 25 mg/dl (7-18); Calcium 8.8 mg/dl (8.5-10.1); Carbon Dioxide 27 mmol/L (21-32); Chloride 93 mmol/L (98-107); Glucose 115 mg/dl (70-99); Magnesium 2.3 mg/dl (1.8-2.4); Potassium 4.7 mmol/L (3.5-5.1); Sodium 125 mmol/L (136-145)
[2020-08-22] MEDS ORDERED: THIAMINE HCL 100 MG TAB PO SCH (09:00)
[2020-08-22] MEDS ORDERED: PANTOprazole 40 MG TAB PO SCH (09:00)
[2020-08-22] MEDS ORDERED: SENNA 8.6 MG TAB PO SCH (09:00)
[2020-08-22] MEDS ORDERED: FOLIC ACID 1 MG TAB PO SCH (09:00)
[2020-08-22] MEDS ORDERED: nadoloL 40 MG TAB PO SCH (09:00)
[2020-08-22] MEDS: buprenorphine HCL 2 MG SUBL SL SCH ×3 (09:06→21:56)
[2020-08-22] MEDS: rifAXIMin 550 MG TABLET PO SCH ×2 (09:07→20:06)
[2020-08-22] MEDS: prednisoLONE SYRUP 15 MG/5 ML BTL PO SCH (09:08)
[2020-08-22] MEDS: LACTULOSE SYRUP 10 GM/15 ML BTL 960 ML PO SCH ×5 (09:08→22:10)
[2020-08-22] MEDS: HEPARIN SOD 5,000 UNIT/0.5 ML VIAL SQ SCH ×2 (09:09→20:06)
[2020-08-22] MEDS ORDERED: SODIUM CHLORIDE 0.9% 1000ML 1,000 ML IV SCH (10:15)
[2020-08-22] MEDS: ONDANSETRON 4 MG OD TAB PO PRN (10:43)
[2020-08-22] MEDS ORDERED: SODIUM CHLORIDE 0.9% 500 ML IV SCH (14:15)
--- NOTE | 2020-08-22 17:17 | Discharge Summary ---
Date of Service August 22, 2020 Admission HPI Per Admitting Provider Zoltan Lorenz is a 40-year-old male with PMH of alcoholic cirrhosis, alcoholic hepatitis, hepatitis C, substance abuse disorder on buprenorphine, alcoholism who was recently admitted to [facility] on 08/04/20-08/17/20 for hepatic encephalopathy in the setting of intolerance to his lactulose secondary to vomiting. The patient was discharged on 08/17/20 because he wanted to go home to see his kids, he comes back in today 08/20/2020 for weakness. On evaluation in the emergency room it was noticed on his labs that his sodium has continued to drift down from 125 at discharge to 120 today, his total bilirubin has increased to 31.8 (14- 29), direct bili increased to 21.8 (6-12), AST 123 (96-101) and ALT increased to 103 (78-81), albumin 3.1. WBC increased at 26.67 (10-26 previously, but on steroids) with negative blood cultures from previous admission, and has been re- cultured today. Urine negative, lactate negative. Creatinine pending secondary to icterus, but was 0.97 from 3 days ago. COVID NEGATIVE. He has previously been evaluated by [facility] for liver transplant and secondary to high risk history of drug and alcohol abuse, he was to enroll in [facility] and remain sober for 3 months with re-evaluation. He was due for evaluation there in September. Due to the acute/chronic worsening of the patient's liver function and inability to stay out of hospital, we have reached out to [facility] and they have accepted the patient for transfer for earlier re-evaluation as he has recently started his intensive outpatient program at [facility] in [place] on Wednesdays and Fridays from 10 AM to 1 PM as per patient report. The patient appears weak, but his mental status is intact and appropriate. Reports he is taking his medications however has not taking them today. Reports he had 1 BM yesterday and continues to struggle with his lactulose secondary to nausea and vomiting. Patient will be admitted until transfer occurs. The patient is enrolled in [facility] at [place] [phone] Ob/Gyn Nurse- TRACY [phone] [facility]- [phone] [facility]- [id number] Principal Diagnosis liver failure Discharge Exam General: Grossly A&O. NAD. Cooperative. Appears uncomfortable and fatigued. HEENT: Atraumatic, normocephalic. Pulm: CTAB. -wheezes, -rales, -rhonchi. No respiratory distress. Cardiac: RRR, -mrg. No LE edema. Abdominal: Nondistended, soft. Mild diffuse TTP Integumentary: Jaundiced, per attending exam. Discharge Data Allergies Allergy/AdvReac Type Severity Reaction Status Date / Time naloxone Allergy Unknown Abdominal Verified 08/20/20 11:34 cramping, sore throat and a headache Consultations 08/20/20 12:25 ED Decision to Admit Stat 08/20/20 15:09 Burn CD for patient Stat 08/20/20 15:10 Consult Health Information Management Stat Ordered Studies 08/20/20 14:26 US duplex portal hepatic veins Stat Total Time Total Time Spent Total Time Spent (In Minutes): Please see attending documentation. Discharge Plan Discharge Items Patient Disposition: Transfer Acute Care Hospital Reason For Visit: LIVER FAILURE Discharge Diagnosis: Liver Failure- transplantation evaluation Condition on Discharge: Good Activity: Resume your previous activity Non-emergency contact: Primary Care Provider, Hospitalist and Industrial Sales Representative Call non-emergency contact if: you have any medication questions Follow-up/Referrals: Gayla Pacheco MD [Primary Care Provider] - Diet: Regular Addtl Attending Provider Instructions: Transfer to [facility] when bed obtained. JASON Charlton is a very pleasant 40-year-old gentleman with a notable history of alcoholic cirrhosis, hepatitis C, substance use disorder on buprenorphine, and alcohol use disorder who was recently admitted to [facility] on for hepatic encephalopathy in the setting of intolerance of his lactulose secondary to vomiting, found to be in acute liver failure. He was discharged on August 17 because of wanting to see his kids, and was subsequently admitted back again on 08/20/20 for weakness. Upon his arrival, he was found to be progressively hyponatremic down to 120 with hyperbilirubinemia to 31.8 (direct bili 21.8) and transaminitis, leukocytosis to 27 (10-26 previously, but on steroids) with previously negative blood culture and an otherwise negative infection work-up. His mentation remained normal during his short hospital course here. Because of his acute on chronic worsening of liver function (alongside enrollment in [facility]), discussions were held with [facility] for transfer for further management and possible evaluation for transplantation. He was subsequently accepted. See additional details below. In the time between his transfer, time was spent optimizing his overall medical status. Because of his progressive, but acute hypotonic hyponatremia, his Lasix and Aldactone were held, and a free water restriction of 1200 cc/day was establishe d. Thankfully, we did observe an increase in his sodium to 125 by the day of his discharge. Further monitoring of this will be required upon his transfer. If he does develop ascites with increase of his sodium, can consider adding back on the Lasix first. His weakness is suspected to be due to metabolic derangements as well as hyperammonemia. We continued his lactulose, with a goal of 3-4 bowel movements a day, while here. Rifaximin and nadolol were continued for ongoing management of his known cirrhosis and its complications. He was also on IV steroids while here. His MELD was 33 using the last available/reliable creatinine from his previous admission. INR elevated to 2.1, with thrombocytopenia up to approximately 100-110 while heresecondary to hepatic failure, no signs or symp toms of active bleeding. Hemoglobin at discharge 9.6. Upon his arrival, patient was noted to have a leukocytosis with an appreciable left shift. Although this being the case, he did also have a leukocytosis during his previous admission with ranges from 11-26, where he was also on steroids. Blood cultures negative from recent previous admission, with new cultures taken on arrival showing [id number]. Procalcitonin normal. Negative lactate. Urine without white blood cells per microscopy, but with trace leuk esterase and positive nitrites; no urinary symptoms reported. It is possible that his leukocytosis likely represents physiologic stress reaction/demargination in the setting of ongoing steroid use. An echocardiogram was performed too, which did not show any valvular anomalies. For his substance use disorder, negative urine alcohol was appreciated on admission. He is noted to be attending an intensive outpatient program. We continued his Suboxone therapy, 4 mg x 3 times daily (allowing flexibility w/ timing of administrations), while here. He has previously been evaluated by [facility] for liver transplant and secondary to high risk history of drug and alcohol abuse, he was to enroll in [facility] and remain sober for 3 months with re-evaluation. He was due for evaluation there in September. Due to the acute/chronic worsening of the patient's liver function and inability to stay out of hospital, we have reached out to [facility] and they have accepted the patient for transfer for earlier re-evaluation as he has recently started his intensive outpatient program at [facility] on Wednesdays and Fridays from 10 AM to 1 PM as per patient report. The patient is enrolled in [facility] at [facility] in [place] [phone]. Contact this number to obtain records. Ob/Gyn Nurse- TRACY [phone] [facility]- [phone] [facility]- [id number] Full code. Pending Studies at Discharge: No Stand-Alone Forms: My [facility] Skilled Items Patient informed of condition?: Yes DNR: No Discharge Level of Care: Other Communicable Disease: No Discharge Prognosis: Deteriorating Lines: Peripheral IV Urinary Catheter: No Medications and DC Order Prescriptions: Continued folic acid 1 mg tablet 1 mg PO DAILY Qty: 90 RF: 1 nadolol 20 mg tablet 20 mg PO DAILY Qty: 90 RF: 1 ondansetron HCl [Zofran] 4 mg tablet 4 mg PO Q8H PRN (Reason: Nausea And Vomiting) Qty: 90 RF: 1 pantoprazole 40 mg tablet,delayed release (DR/EC) 40 mg PO QAM Qty: 90 RF: 1 sennosides [senna] 8.6 mg tablet 8.6 mg PO DAILY Qty: 90 RF: 1 thiamine HCl (vitamin B1) 100 mg tablet 100 mg PO DAILY Qty: 90 RF: 1 prednisolone 15 mg/5 mL solution See Rx Instructions PO DAILY Qty: 240 RF: 0 spironolactone 50 mg tablet 200 mg PO DAILY Qty: 90 RF: 1 lactulose 10 gram/15 mL solution 10 g PO QID Qty: 946 RF: 2 rifaximin 550 mg tablet 550 mg PO BID Qty: 60 RF: 2 buprenorphine HCl 8 mg tablet, sublingual 12 mg SUBLINGUAL DAILY RF: 0 hydroxyzine HCl 50 mg tablet 25 mg PO HS PRN (Reason: Anxiety) RF: 0 furosemide 80 mg Tablet 80 mg PO DAILY Qty: 30 RF: 0 Discharge Orders: Discharge Order (Routine); Ordered 08/22/20 Ordered By: Shilo Vicente Admission Data Admit Date/Time: 08/20/20 14:54 Attending Provider: Fernando Main Admit Provider: Akua Kennedy Primary Care Provider: Gayla Pacheco Other Providers: Akua Kennedy ; Lolly Gray Resident Activity Tracking Resident Involvement: Resident Care Provided Care Provided: Adult [facility] Medicine
[2020-08-22] MEDS ORDERED: ONDANSETRON INJ 2 MG/ML 2 ML VIAL IV PRN (18:35)
[2020-08-22] MEDS ORDERED: POLYETHYLENE (MIRALAX) 17 GM PACK PO PRN (18:58)
--- NOTE | 2020-08-22 19:00 | Billing Data ---
Date of Service August 22, 2020 Coding Level of Care Code 84375 Subseq Hosp Care Lvl 2
--- NOTE | 2020-08-23 06:46 | Discharge Summary ---
Date of Service August 23, 2020 Admission HPI Per Admitting Provider Zoltan Lorenz is a 40-year-old male with PMH of alcoholic cirrhosis, alcoholic hepatitis, hepatitis C, substance abuse disorder on buprenorphine, alcoholism who was recently admitted to [facility] on 08/04/20-08/17/20 for hepatic encephalopathy in the setting of intolerance to his lactulose secondary to vomiting. The patient was discharged on 08/17/20 because he wanted to go home to see his kids, he comes back in today 08/20/2020 for weakness. On evaluation in the emergency room it was noticed on his labs that his sodium has continued to drift down from 125 at discharge to 120 today, his total bilirubin has increased to 31.8 (14- 29), direct bili increased to 21.8 (6-12), AST 123 (96-101) and ALT increased to 103 (78-81), albumin 3.1. WBC increased at 26.67 (10-26 previously, but on steroids) with negative blood cultures from previous admission, and has been re- cultured today. Urine negative, lactate negative. Creatinine pending secondary to icterus, but was 0.97 from 3 days ago. COVID NEGATIVE. He has previously been evaluated by [facility] for liver transplant and secondary to high risk history of drug and alcohol abuse, he was to enroll in [facility] and remain sober for 3 months with re-evaluation. He was due for evaluation there in September. Due to the acute/chronic worsening of the patient's liver function and inability to stay out of hospital, we have reached out to [facility] and they have accepted the patient for transfer for earlier re-evaluation as he has recently started his intensive outpatient program at [facility] in [place] on Wednesdays and Fridays from 10 AM to 1 PM as per patient report. The patient appears weak, but his mental status is intact and appropriate. Reports he is taking his medications however has not taking them today. Reports he had 1 BM yesterday and continues to struggle with his lactulose secondary to nausea and vomiting. Patient will be admitted until transfer occurs. The patient is enrolled in [facility] at [place] [phone] Capacity Management Specialist- TRACY [phone] [facility]- [phone] [facility]- [id number] Admission Exam Per Admitting Provider General: awake, alert, no apparent distress, mild memory confusion but approprite Head: Normocephalic, atraumatic ENT: scleral icterus, PERRL, EOMI, no pharyngeal exudate, mucous membranes moist Neuro: AAO x 3, speech clear and appropriate, strength intact bilaterally 5/5, sensation intact and equal all extremities and dermatomes, no pronator drift Chest: equal rise and fall of the chest, no accessory muscle use, no heaves or thrills, Clear to auscultation, on room air, Cardiac: Regular rate and rhythm, telemetry reviewed, Systolic murmur, skin warm dry, cap refill <3 seconds, peripheral pulses +2 no JVD, no murmur, trace edema. GI: NABS x 4 quadrants, soft, nontender to palpation, no rebound, guarding or tenderness : Spontaneously voiding, no pain, no CVA tenderness, Extremities: Normal inspection, no peripheral edema or erythema, calfs nontender to palpation Psych: Normal mood and affect Skin: Jaundiced, venous discoloration to lower extremities. Principal Diagnosis liver failure Discharge Exam General: Grossly A&O. NAD. Cooperative. HEENT: Atraumatic, normocephalic. Pulm: CTAB. No respiratory distress. Cardiac: RRR, -mrg. Abdominal: Soft, nondistended. Mild diffuse tenderness. Integumentary: Jaundiced. Discharge Data Allergies Allergy/AdvReac Type Severity Reaction Status Date / Time naloxone Allergy Unknown Abdominal Verified 08/20/20 11:34 cramping, sore throat and a headache Consultations 08/20/20 12:25 ED Decision to Admit Stat 08/20/20 15:09 Burn CD for patient Stat 08/20/20 15:10 Consult Health Information Management Stat Ordered Studies 08/20/20 14:26 US duplex portal hepatic veins Stat Hospital Course (1) Hyperbilirubinemia: Zoltan Lorenz 40 y/o male w/ hx of alcoholic cirrhosis, hepatitis C, substance use disorder on buprenorphine, and alcohol use disorder who was recently admitted to [facility] on for hepatic encephalopathy in the setting of intolerance of his lactulose secondary to vomiting, found to be in acute liver failure. He was discharged on August 17 because of wanting to see his kids, and was subsequently admitted back again on 08/20/20-08/23/20 for weakness and optimization of medical status prior to transfer to [facility] for transplant re-evaluation. He has previously been evaluated by [facility] for liver transplant and secondary to high risk history of drug and alcohol abuse, he was to enroll in [facility] and remain sober for 3 months with re-evaluation. He was due for evaluation there in September. Due to the acute/chronic worsening of the patient's liver function and inability to stay out of hospital, we have reached out to [facility] and they have accepted the patient for transfer for earlier re-evaluation as he has recently started his intensive outpatient program at [facility] in [place] on Wednesdays and Fridays from 10 AM to 1 PM as per patient report. acute liver failure in setting of cirrhosis - elevated transaminases and elevated ammonia 41.8 on admission - 08/20 blood cultures no growth 48 hours prelim. procalc and lactate neg. - MELD 33 using previous data. - dark urine. jaundiced on exam. elevated bili levels. - hepatic encephalopathy during previous admission. mentally clear during current admission - continued lactulose and rifaximin - continued 40 mg prednisone PO daily hyponatremia, asymptomatic - 120 on admission, improved to 125 - 1200cc/day free water restriction anemia - ~10, stable. likely secondary to cirrhosis. followed clinically thrombocytopenia - ~100. likely secondary to cirrhosis. followed clinically substance abuse - continued buprenorphine 4 mg 3 times daily (allowing flexibility w/ timing of administrations) - neg for etoh on admission - [facility] as outpatient systolic murmur, chronic - 08/21 echo EF 65-70% w/ no regional wall motion abnormalities full code (2) Acute hyponatremia: (3) Hepatic encephalopathy: (4) Cirrhosis: (5) Leukocytosis: (6) Substance abuse: (7) Hepatitis C: (8) Elevated INR: (9) Murmur: (10) Acute hepatic failure: (11) Anemia: (12) Thrombocytopenia: (13) DVT prophylaxis: Total Time Total Time Spent Total Time Spent (In Minutes): <30 Discharge Plan Discharge Items Patient Disposition: Transfer Acute Care Hospital Reason For Visit: LIVER FAILURE Discharge Diagnosis: Liver Failure- transplantation evaluation Condition on Discharge: Good Activity: Resume your previous activity Non-emergency contact: Primary Care Provider, Hospitalist and Manager Oncology Call non-emergency contact if: you have any medication questions Follow-up/Referrals: Gayla Pacheco MD [Primary Care Provider] - Diet: Regular Addtl Attending Provider Instructions: Transfer to [facility] when bed obtained. JASON Charlton is a very pleasant 40-year-old gentleman with a notable history of alcoh olic cirrhosis, hepatitis C, substance use disorder on buprenorphine, and alcohol use disorder who was recently admitted to [facility] on for hepatic encephalopathy in the setting of intolerance of his lactulose secondary to vomiting, found to be in acute liver failure. He was discharged on August 17 because of wanting to see his kids, and was subsequently admitted back again on 08/20/20 for weakness. Upon his arrival, he was found to be progressively hyponatremic down to 120 with hyperbilirubinemia to 31.8 (direct bili 21.8) and transaminitis, leukocytosis to 27 (10-26 previously, but on steroids) with previously negative blood culture and an otherwise negative infection work-up. His mentation remained normal during his short hospital course here. Because of his acute on chronic worsening of liver function (alongside enrollment in [facility]), discussions were held with [facility] for transfer for further management and possible evaluation for transplantation. He was subsequently accepted. See additional details below. In the time between his transfer, time was spent optimizing his overall medical status. Because of his progressive, but acute hypotonic hyponatremia, his Lasix and Aldactone were held, and a free water restriction of 1200 cc/day was established. Thankfully, we did observe an increase in his sodium to 125 by 08/22. Further monitoring of this will be required upon his transfer. If he does develop ascites with increase of his sodium, can consider adding back on the Lasix first. His weakness is suspected to be due to metabolic derangements as well as hyperammonemia. We continued his lactulose, with a goal of 3-4 bowel movements a day, while here. Rifaximin and nadolol were continued for ongoing management of his known cirrhosis and its complications. He was also on IV steroids while here. His MELD was 33 using the last available/reliable creatinine from his previous admission. INR elevated to 2.1, with thrombocytopenia up to approximately 100-110 while heresecondary to hepatic failure, no signs or symptoms of active bleeding. Hemoglobin on 08/22 was 9.6. Upon his arrival, patient was noted to have a leukocytosis with an appreciable left shift. Although this being the case, he did also have a leukocytosis during his previous admission with ranges from 11-26, where he was also on steroids. Blood cultures negative from recent previous admission, with new cultures taken on arrival showing [id number]. Procalcitonin normal. Negative lactate. Urine without white blood cells per microscopy, but with trace leuk esterase and positive nitrites; no urinary symptoms reported. It is possible that his leukocytosis likely represents physiologic stress reaction/demargination in the setting of ongoing steroid use. An echocardiogram was performed too, which did not show any valvular anomalies. For his substance use disorder, negative urine alcohol was appreciated on admission. He is noted to be attending an intensive outpatient program. We continued his Suboxone therapy, 4 mg x 3 times daily (allowing flexibility w/ timing of administrations), while here. He has previously been evaluated by [facility] for liver transplant and secondary to high risk history of drug and alcohol abuse, he was to enroll in [facility] and remain sober for 3 months with re-evaluation. He was due for evaluation there in September. Due to the acute/chronic worsening of the patient's liver function and inability to stay out of hospital, we have reached out to [facility] and they have accepted the patient for transfer for earlier re-evaluation as he has recently started his intensive outpatient program at [facility] on Wednesdays and Fridays from 10 AM to 1 PM as per patient report. The patient is enrolled in [facility] at [facility] [phone]. Contact this number to obtain records. Capacity Management Specialist- TRACY [phone] [facility]- [phone] [facility]- [id number] Full code. Pending Studies at Discharge: No Stand-Alone Forms: My [facility] Skilled Items Patient informed of condition?: Yes DNR: No Discharge Level of Care: Other Communicable Disease: No Discharge Prognosis: Deteriorating Lines: Peripheral IV Urinary Catheter: No Medications and DC Order Prescriptions: Continued folic acid 1 mg tablet 1 mg PO DAILY Qty: 90 RF: 1 nadolol 20 mg tablet 20 mg PO DAILY Qty: 90 RF: 1 ondansetron HCl [Zofran] 4 mg tablet 4 mg PO Q8H PRN (Reason: Nausea And Vomiting) Qty: 90 RF: 1 pantoprazole 40 mg tablet,delayed release (DR/EC) 40 mg PO QAM Qty: 90 RF: 1 sennosides [senna] 8.6 mg tablet 8.6 mg PO DAILY Qty: 90 RF: 1 thiamine HCl (vitamin B1) 100 mg tablet 100 mg PO DAILY Qty: 90 RF: 1 prednisolone 15 mg/5 mL solution See Rx Instructions PO DAILY Qty: 240 RF: 0 spironolactone 50 mg tablet 200 mg PO DAILY Qty: 90 RF: 1 lactulose 10 gram/15 mL solution 10 g PO QID Qty: 946 RF: 2 rifaximin 550 mg tablet 550 mg PO BID Qty: 60 RF: 2 buprenorphine HCl 8 mg tablet, sublingual 12 mg SUBLINGUAL DAILY RF: 0 hydroxyzine HCl 50 mg tablet 25 mg PO HS PRN (Reason: Anxiety) RF: 0 furosemide 80 mg Tablet 80 mg PO DAILY Qty: 30 RF: 0 Discharge Orders: Discharge Order (Routine); Ordered 08/23/20 Ordered By: Fernando Main Admission Data Admit Date/Time: 08/20/20 14:54 Attending Provider: Fernando Main Admit Provider: Akua Kennedy Primary Care Provider: Gayla Pacheco Other Providers: Akua Kennedy ; Lolly Gray Other Interventions: Discharge Summary Assessment (RN) Last Done: 08/23/20 08:52 Supervising Physician Co-Signing Physician Notes Chart reviewed and patient was discussed with Dr. Mcgovern. Prior to my being able to see him he was able to be taken for transfer to [facility]. No new findings, otherwise as above. Resident Activity Tracking Resident Involvement: Resident Care Provided Care Provided: Adult Hospital Medicine
[2020-08-23] MEDS: buprenorphine HCL 2 MG SUBL SL SCH (07:27)
--- NOTE | 2020-08-29 07:20 | Coding Query ---
CODING QUERY To promote full compliance with coding requirements relating to patient care, provider participation is requested in all cases of clinical coder uncertainty. Please assist us with the question(s) below: Coding Question(s): Please specify below, in your clinical opinion, regarding Liver Failure documented on Discharge Summary as Acute Liver Failure in setting of cirrhosis. x x ) Acute Alcoholic Liver Failure ( ) Acute Liver Failure Unspecified ( ) Acute Liver Failure, Other: Please Specify Physician's Response(s): Thank you Luisa Garcia Principal Diagnosis: "that condition established after study, to be chiefly responsible for occasioning the admission of the patient to the hospital for care." Co-Existing Principal Diagnosis: "when two or more diagnoses equally meet the criteria for principal diagnosis as determined by the circumstances of admission, diagnostic work up, and/or therapy provided, and the Alphabetic Index, Tabular List, or another coding guideline does not provide sequencing direction, any one of the diagnoses may be sequenced first." "When the physician has documented what appears to be a current diagnosis in the body of the record, but has not included the diagnosis in the final diagnostic statement, the physician should be asked whether the diagnosis should be added." (Source Coding Clinic 2 QTR90. p3-4) LUCIE
== END 2020-08-23 08:35 | disposition short-term general hospital (02) | DRG 433 ==
LOC: ED 09:36 → 2N 14:54 → SUATTDRO 14:54 → 2N 17:10